=== PATIENT | male | born 1940 | race Caucasian/White ===

== ENCOUNTER 2021-11-25 05:52 | Emergency (ER) | payer MEDICARE, SELFPAY ==
[2021-11-25 06:00] VITALS: BP 130/86; PULSE 91; RESP 16; TEMP 35.7; O2SAT 97
--- NOTE | 2021-11-25 06:21 | CRLHL7_ITS ---
For Patients: As a result of the Cures Act, medical imaging exams and procedure reports are released immediately into your electronic medical record. You may view this report before your referring provider. If you have questions, please contact your health care provider. INDICATION: Dizziness. COMPARISON: Head CT scan dated 02 June 2014. TECHNIQUE: Noncontrast head CT scan. FINDINGS: Small area of encephalomalacia in the lateral aspect of the right occipital lobe is new from 2015. No other abnormal foci of altered attenuation in the brain parenchyma. No midline shift or mass effect. No hydrocephalus. No abnormal extra-axial fluid collections. No abnormalities identified in the visualized portions of the paranasal sinuses, skull, and scalp. IMPRESSION: 1. No evidence of acute intracranial abnormalities. 2. 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 Dictated by Ankush Meehan MD @ 11/25/2021 7:30:41 AM Please note that all CT scans at this facility use dose modulation, iterative reconstruction, and/or weight-based dosing when appropriate to reduce radiation dose to as low as reasonably achievable. Dictated by: Ankush Meehan MD @ 11/25/2021 07:30:55 (Electronically Signed)
--- NOTE | 2021-11-25 06:22 | ED.GENADULT ---
HPI - General Adult General Time Seen by Provider: 06:22 Date Seen: 11/25/21 Chief complaint: Dizziness/Vertigo Stated complaint: Vertigo Time Seen by Provider: 11/25/21 06:13 Source: patient Mode of arrival: ambulatory Limitations: no limitations History of Present Illness HPI narrative: 81-year-old male who comes in today with dizziness. Patient woke up mood on his left side, when he rolled over he had room spinning dizziness. This was fairly mild and only lasted a couple of seconds. He was able to get up and ambulate the bathroom, laid back down on his left side and again experienced room spinning dizziness. Laid on his right side and was fine. Patient feels mostly better now. Had similar episode to this about a year ago. No blurry or double vision, no headache, no chest pain or shortness of breath, no nausea or vomiting, no numbness tingling the arms legs, no speech difficulty, no other symptoms and symptoms are mostly resolved. Related Data Home Medications Medication Instructions Recorded Confirmed amlodipine 10 mg tablet 10 mg PO DAILY 11/25/21 11/25/21 aspirin 81 mg chewable tablet 81 mg PO DAILY 11/25/21 11/25/21 (Aspirin Childrens) atorvastatin 20 mg tablet 20 mg PO DAILY 11/25/21 11/25/21 cholecalciferol (vitamin D3) 50 2,000 unit PO DAILY 11/25/21 11/25/21 mcg (2,000 unit) capsule famotidine 20 mg tablet 20 mg PO Q12H 11/25/21 11/25/21 ferrous sulfate 325 mg (65 mg 325 mg PO DAILY 11/25/21 11/25/21 iron) tablet,delayed release gabapentin 100 mg capsule 100 mg PO Q8H 11/25/21 11/25/21 metoprolol succinate 25 mg 25 mg PO DAILY 11/25/21 11/25/21 tablet,extended release 24 hr omeprazole 20 mg capsule,delayed 20 mg PO DAILY 11/25/21 11/25/21 release tamsulosin 0.4 mg capsule 0.4 mg PO Q24H 11/25/21 11/25/21 warfarin 2 mg tablet 2 mg PO DAILY 11/25/21 11/25/21 Allergies Allergy/AdvReac Type Severity Reaction Status Date / Time codeine AdvReac Mild gi upset, Verified 11/25/21 06:09 nausea Review of Systems Status of ROS: Reports: 10 or more systems reviewed and unremarkable except as noted in History and below [facility] Medical History (Updated 11/25/21 @ 07:03 by Chet Bagley MD) Acute bacterial endocarditis Anxiety state, unspecified Bilateral hearing loss Chronic anticoagulation Depressive disorder GERD (gastroesophageal reflux disease) Hyperplastic colon polyp Hypertension 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 Kidney calculus Mitral valve disorder Plantar fasciitis Surgical History (Updated 11/25/21 @ 06:08 by Rika Hussein RN) Aortic valve replaced H/O arthroscopy of shoulder H/O hernia repair S/P ureteral stent placement Social History Smoking Status: Former smoker Do you use any of these nicotine containing products: None Second hand tobacco smoke exposure: No How often do you have a drink containing alcohol: monthly or less How many standard drinks containing alcohol do you have on a typical day: 1 or 2 How often do you have six or more drinks on one occasion: Never AUDIT-C Alcohol total score: 1 Non-prescribed substance use: denies use Exam Narrative: Exam Narrative: General: Well-developed and well-nourished, no acute distress Head: Atraumatic and normocephalic Eyes: Pupils are equal reactive, extraocular motions intact, conjunctiva clear ENT: External nose and ears are normal, posterior pharynx without erythema or exudate Neck: No midline cervical tenderness, full spontaneous range of motion the neck, trachea midline, no adenopathy Heart: Regular rate and rhythm no murmurs or thrills Lungs: Clear to auscultation bilaterally without wheezes or crackles Abdomen: Soft, nontender, nondistended with active bowel sounds Musculoskeletal: No tenderness, deformity, or edema Neurologic: Awake, alert, and oriented x3, no gross focal neurologic deficits, cranial nerves intact as tested Psych: Mood and affect are appropriate Skin: No rashes Const: Vital Signs, click to edit/add: Vital Signs - 24 hr 11/25/21 06:00 Temperature 96.3 F L Pulse Rate [Right Pulse Oximeter] 91 Respiratory Rate 16 Blood Pressure [Ri ght Upper Arm] 130/86 Pulse Oximetry 97 Oxygen Delivery Me thod Room Air Course Course Hospital Course: Patient seen examined, prior records reviewed. Patient presents with a couple episodes of room spinning dizziness this morning, only when he was lying on his left side. No other neurologic symptoms, no headache or head injury. Symptoms are almost completely resolved now. Labs and head CT are ordered, meclizine will be given. If workup is reassuring, patient can be discharged. 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 Given onset of symptoms this morning and resolution of symptoms at this time, this area of encephalomalacia is unlikely to be clinically significant to his presentation today. Patient is stable for discharge with outpatient follow-up. Vital Signs Vital signs: Initial Vital Signs Temperature 96.3 F L 11/25/21 06:00 Temperature Source Temporal Artery Scan 11/25/21 06:00 Pulse Rate 91 11/25/21 06:00 Respiratory Rate 16 11/25/21 06:00 Blood Pressure 130/86 11/25/21 06:00 Blood Pressure Mean 100 11/25/21 06:00 Blood Pressure Position Supine 11/25/21 06:00 Pulse Oximetry 97 11/25/21 06:00 Oxygen Delivery Method 11/25/21 06:00 Vital Signs Temperature 96.3 F L 11/25/21 06:00 Pulse Rate 91 11/25/21 06:00 Respiratory Rate 16 11/25/21 06:00 Blood Pressure 130/86 11/25/21 06:00 Pulse Oximetry 97 11/25/21 06:00 Oxygen Delivery Method 11/25/21 06:00 Temperature 96.3 F L 11/25/21 06:00 Pulse Rate 91 11/25/21 06:00 Respiratory Rate 16 11/25/21 06:00 Blood Pressure 130/86 11/25/21 06:00 Pulse Oximetry 97 11/25/21 06:00 Oxygen Delivery Method 11/25/21 06:00 Medical Decision Making Medical Records Medical records reviewed: Yes I reviewed the patient's medical records Lab Data Lab results reviewed: Yes I reviewed the patient's lab results Labs: Lab Results 11/25/21 Range/Units 06:25 Sodium 138 (135-149) mmol/L Potassium 4.2 (3.6-5.1) mmol/L Chloride 105 (96-114) mmol/L Carbon Dioxide 24 (20-32) mmol/L BUN 16 (7-30) mg/dL Creatinine 0.8 (0.5-1.5) mg/dL Estimated GFR 89 ml/min Glucose 113 (60-115) mg/dL Calcium 9.5 (8.4-10.6) mg/dL Imaging Data CT scan - head: Attestation: I have reviewed the pertinent imaging results. My impression: No acute ischemic changes, no hemorrhage Radiologist's impression: 1. No evidence of acute intracranial abnormalities. 2. 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 Discharge Plan Discharge Clinical Impression: Vertigo Patient Disposition: Home, Self-Care Condition: Stable Instructions: Vertigo (ED) Additional Instructions: Take meclizine as needed for dizziness Activity Level: No Restrictions Discharge Diet: Regular Prescriptions: No Action atorvastatin 20 mg tablet 20 mg PO DAILY famotidine 20 mg tablet 20 mg PO Q12H tamsulosin 0.4 mg capsule 0.4 mg PO Q24H amlodipine 10 mg tablet 10 mg PO DAILY gabapentin 100 mg capsule 100 mg PO Q8H metoprolol succinate 25 mg tablet extended release 24 hr 25 mg PO DAILY omeprazole 20 mg capsule,delayed release(DR/EC) 20 mg PO DAILY aspirin [Aspirin Childrens] 81 mg tablet,chewable 81 mg PO DAILY cholecalciferol (vitamin D3) 50 mcg (2,000 unit) capsule 2,000 unit PO DAILY ferrous sulfate 325 mg (65 mg iron) tablet,delayed release (DR/EC) 325 mg PO DAILY warfarin 2 mg tablet 2 mg PO DAILY Hold Instructions: unknown Follow Up/Referrals: QUENTIN PATEL DO [Primary Care Provider] - Stand Alone [facility]
[2021-11-25] MEDS: MECLIZINE HCL 25 MG TABLET PO (06:29)
[2021-11-25 06:55] LABS: Chloride* 105 mmol/L (96-114); Potassium* 4.2 mmol/L (3.6-5.1); Sodium* 138 mmol/L (135-149)
[2021-11-25 06:57] LABS: Creatinine* 0.8 mg/dL (0.5-1.5); Estimated Glomerular Filt Rate 89 ml/min
[2021-11-25 06:58] LABS: Blood Urea Nitrogen* 16 mg/dL (7-30); Calcium* 9.5 mg/dL (8.4-10.6); Carbon Dioxide* 24 mmol/L (20-32); Glucose* 113 mg/dL (60-115)
== END 2021-11-25 07:49 | disposition home or self-care (01) ==
PROVIDERS: Emergency Provider Family Medicine; PCP Student in an Organized Health Care Education/Training Program
DX: R42 Dizziness and giddiness (principal)
CPT/HCPCS: 36415; 70450; 80048; 99284; A9270

== ENCOUNTER 2021-11-26 13:45 | Outpatient (RCR) | payer MEDICARE, SELFPAY | END 2022-01-09 17:34 | disposition home or self-care (01) | PROVIDERS: PCP Student in an Organized Health Care Education/Training Program; Visit Provider Student in an Organized Health Care Education/Training Program | DX: M19.019 Primary osteoarthritis, unspecified shoulder (principal); Z51.89 Encounter for other specified aftercare | CPT/HCPCS: 97110; 97140 ==

== ENCOUNTER 2022-01-25 03:06 | Emergency (ER) | payer MEDICARE, SELFPAY ==
[2022-01-25 03:15] VITALS: BP 162/87; PULSE 84; RESP 18; TEMP 36.2; O2SAT 98
--- NOTE | 2022-01-25 03:16 | CRLHL7_ITS ---
For Patients: As a result of the Century Cures Act, medical imaging exams and procedure reports are released immediately into your electronic medical record. You may view this report before your referring provider. If you have questions, please contact your health care provider. INDICATION: Right-sided abdominal pain TECHNIQUE: CT abdomen and pelvis acquired with 98 cc Isovue 370 IV contrast. COMPARISON: January 20, 2021 FINDINGS: Lower chest: Coronary artery calcifications. Status post median sternotomy. Pacemaker wires partially visualized. Liver: Unremarkable. Spleen: Unremarkable. Pancreas: Unremarkable. Gallbladder and bile ducts: Unremarkable. Adrenal glands: Unremarkable. Kidneys: Multiple small nonobstructing stones in both kidneys. No perinephric fat stranding.. GI tract: Colonic diverticulosis. Appendix is not seen. Vascular structures: Atherosclerotic disease. Lymph nodes: Unremarkable. Miscellaneous: Unremarkable. No free air or significant free fluid. Pelvic Organs: 2 mm stone in the dependent portion of the urinary bladder. Multiple tiny bladder stones were previously identified. Bones: Enlarged prostate gland. IMPRESSION: Tiny bilateral nonobstructive renal stones. Urinary bladder stone. Colonic diverticulosis. Enlarged prostate gland. Coronary artery disease. Enlarged prostate gland. Please note that all CT scans at this facility use dose modulation, iterative reconstruction, and/or weight-based dosing when appropriate to reduce radiation dose to as low as reasonably achievable. Dictated by Mimi Acuña MD @ 01/25/2022 4:51:19 AM (Electronically Signed)
--- NOTE | 2022-01-25 03:17 | ED_ITS ---
HPI - Abdominal Pain General Chief Complaint: Abdominal Pain Stated Complaint: Right Side Abdominal Pain Time Seen by Provider: 01/25/22 03:14 History of Present Illness HPI narrative: Pt is an 81 year old gentleman who presents with 2 hours of mid right sided abd pain. The pain woke him up and is sharp in the anterior axillary line. No radiation. No fevers, chills, chest pain, sob or dysuria. No change in bowel or bladder. Pain is positional and worsens with movement. Pt has had similar pain in the past and was found to have kidney stones. Related Data Home Medications Medication Instructions Recorded Confirmed amlodipine 10 mg tablet 10 mg PO DAILY 11/25/21 11/25/21 aspirin 81 mg chewable tablet 81 mg PO DAILY 11/25/21 11/25/21 (Aspirin Childrens) atorvastatin 20 mg tablet 20 mg PO DAILY 11/25/21 11/25/21 cholecalciferol (vitamin D3) 50 2,000 unit PO DAILY 11/25/21 11/25/21 mcg (2,000 unit) capsule famotidine 20 mg tablet 20 mg PO Q12H 11/25/21 11/25/21 ferrous sulfate 325 mg (65 mg 325 mg PO DAILY 11/25/21 11/25/21 iron) tablet,delayed release gabapentin 100 mg capsule 100 mg PO Q8H 11/25/21 11/25/21 metoprolol succinate 25 mg 25 mg PO DAILY 11/25/21 11/25/21 tablet,extended release 24 hr omeprazole 20 mg capsule,delayed 20 mg PO DAILY 11/25/21 11/25/21 release tamsulosin 0.4 mg capsule 0.4 mg PO Q24H 11/25/21 11/25/21 warfarin 2 mg tablet 2 mg PO DAILY 11/25/21 11/25/21 Allergies Allergy/AdvReac Type Severity Reaction Status Date / Time codeine AdvReac Mild gi upset, Verified 01/25/22 04:17 nausea Review of Systems Status of ROS Reports: 10 or more systems reviewed and unremarkable except as noted in History and below 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 Kidney calculus Mitral valve disorder Plantar fasciitis Surgical History Aortic valve replaced H/O arthroscopy of shoulder H/O hernia repair S/P ureteral stent placement Social History Smoking Status: Former smoker Do you use any of these nicotine containing products: None Second hand tobacco smoke exposure: No How often do you have a drink containing alcohol: monthly or less How many standard drinks containing alcohol do you have on a typical day: 1 or 2 How often do you have six or more drinks on one occasion: Never AUDIT-C Alcohol total score: 1 Non-prescribed substance use: denies use service: No Exam Narrative: Exam Narrative: EXAM GENERAL: Patient appears comfortable and well. EYES: No scleral icterus. THYROID: no thyroid nodules or thyromegaly. LYMPH: No supraclavicular or cervical lymphadenopathy. SKIN: Visible skin seen during exam normal or with benign process only. EXT: No dependent lower extremity pedal edema. HEART: Regular rate and rhythm with no murmurs, rubs, or gallops. LUNGS: Clear to auscultation bilaterally with no crackles or wheezes. ABD: Soft, non tender, non distended. PSYCH: Good eye contact, speech is not pressured. Const: Vital Signs, click to edit/add: Vital Signs - 24 hr 01/25/22 03:15 01/25/22 04:16 Temperature 97.2 F L Pulse Rate [Left P ulse Oximeter] 84 74 Respiratory Rate 18 18 Blood Pressure [Ri ght Upper Arm] 162/87 H 148/84 H Pulse Oximetry 98 97 Oxygen Delivery Me thod Room Air Room Air Course Course Hospital Course: Pt seen and examined. CT abd and pelvis, cbc, cmp, amylase and ua ordered. Reevaluation(s) Reevaluation #1: Pt overall feeling fine. CT shows very small kidney stones which are nonobstructing. Labs reviewed and are significant for only mild low level hematuria Time: 04:59 Vital Signs Vital signs: Initial Vital Signs Temperature 97.2 F L 01/25/22 03:15 Temperature Source Temporal Artery Scan 01/25/22 03:15 Pulse Rate 84 01/25/22 03:15 Pulse Rhythm 01/25/22 03:15 Respiratory Rate 18 11/05/22 03:15 Blood Pressure 162/87 H 01/25/22 03:15 Blood Pressure Mean 112 01/25/22 03:15 Blood Pressure Position Semi-Fowlers 01/25/22 03:15 Pulse Oximetry 98 01/25/22 03:15 Oxygen Delivery Method 01/25/22 03:15 Vital Signs Temperature 97.2 F L 01/25/22 03:15 Pulse Rate 84 01/25/22 03:15 Respiratory Rate 18 01/25/22 03:15 Blood Pressure 162/87 H 01/25/22 03:15 Pulse Oximetry 98 01/25/22 03:15 Oxygen Delivery Method 01/25/22 03:15 Temperature 97.2 F L 01/25/22 03:15 Pulse Rate 74 01/25/22 04:16 Respiratory Rate 18 01/25/22 04:16 Blood Pressure 148/84 H 01/25/22 04:16 Pulse Oximetry 97 01/25/22 04:16 Oxygen Delivery Method 01/25/22 04:16 MDM - Abdominal Pain MDM Narrative Medical decision making narrative: Pt arrives with 2 hours of right sided abd pain. Work up shows only very small kidney stones bilaterally and low level hematuria. Pain is positional. Results explained to pt. Recommending Tylenol, Motrin Rest and Fluids Differential Diagnosis Differential diagnosis: Likely abdominal pain, acute appendicitis, calculus of kidney, constipation, diverticulitis, gastroenteritis, pancreatitis and small bowel obstruction Lab Data Labs: Lab Results 01/25/22 01/25/22 01/25/22 Range/Units 03:14 03:16 03:16 WBC 6.27 (4.50-11.00) K/uL RBC 5.35 (4.30-5.90) m/uL Hgb 15.5 (13.5-17.5) gm/dL Hct 46.1 (37.0-53.0) % MCV 86 (80-100) fL MCH 29 (26-34) pg MCHC 34 (32-36) gm/dL RDW Coeff of Stephen 13.4 (11.5-15.5) % Plt Count 196 (140-440) K/uL Neut % (Auto) 65.9 (42.0-72.0) % Lymph % (Auto) 23.8 (20-44) % [place] % (Auto) 9.1 (0.0-11.0) % Eos % (Auto) 0.0 (0.0-7.0) % Baso % (Auto) 0.6 (0.0-3.0) % Neut # (Auto) 4.13 (1.7-7.0) K/uL Lymph # (Auto) 1.49 (0.90-2.90) K/uL [place] # (Auto) 0.60 (0.00-0.90) K/UL Eos # (Auto) 0.00 (0.00-0.50) K/uL Baso # (Auto) 0.04 (0.00-0.30) K/uL Abs Immat Gran (auto) 0.04 (0.00-0.30) K/uL Imm/Tot Granulo (auto) 0.6 % Sodium 139 (135-149) mmol/L Potassium 4.3 (3.6-5.1) mmol/L Chloride 105 (96-114) mmol/L Carbon Dioxide 25 (20-32) mmol/L BUN 22 (7-30) mg/dL Creatinine 0.8 (0.5-1.5) mg/dL Estimated GFR 89 ml/min Glucose 104 (60-115) mg/dL Calcium 9.7 (8.4-10.6) mg/dL Total Bilirubin 0.8 (0.1-1.5) mg/dL AST 30 (12-35) U/L ALT 26 (4-50) U/L Alkaline Phosphatase 115 (40-150) U/L Total Protein 7.3 (6.0-8.3) g/dL Albumin 4.6 (3.3-5.0) g/dL Amylase 85 (18-89) U/L Urine Color Yellow (Yellow) Urine Appearance Clear (Clear) Urine pH 6.0 (5.0-8.5) Ur Specific [place] 1.010 (1.000-1.030) Urine Protein Negative (Negative) Urine Glucose (UA) Negative (Negative) Urine Ketones Negative (Negative) Urine Blood Trace-intact A (Negative) Urine Nitrite Negative (Negative) Urine Bilirubin Negative (Negative) Urine Urobilinogen 0.2 (0.2-1.0) Ur Leukocyte Esterase Negative (Negative) Urine RBC 2-5 A (0-2) Urine WBC 0-2 (0-5) Ur Squamous Epith Cells None (None-Few) Urine Bacteria None (None) Discharge Plan Discharge Clinical Impression: Abdominal pain Condition: Stable Instructions: Abdominal Pain (ED) Additional Instructions: Tylenol Motrin Rest Fluids Follow up as needed Activity Level: Activity as Tolerated Discharge Diet: Regular Prescriptions: No Action atorvastatin 20 mg tablet 20 mg PO DAILY famotidine 20 mg tablet 20 mg PO Q12H tamsulosin 0.4 mg capsule 0.4 mg PO Q24H amlodipine 10 mg tablet 10 mg PO DAILY gabapentin 100 mg capsule 100 mg PO Q8H metoprolol succinate 25 mg tablet extended release 24 hr 25 mg PO DAILY omeprazole 20 mg capsule,delayed release(DR/EC) 20 mg PO DAILY aspirin [Aspirin Childrens] 81 mg tablet,chewable 81 mg PO DAILY cholecalciferol (vitamin D3) 50 mcg (2,000 unit) capsule 2,000 unit PO DAILY ferrous sulfate 325 mg (65 mg iron) tablet,delayed release (DR/EC) 325 mg PO DAILY warfarin 2 mg tablet 2 mg PO DAILY Hold Instructions: unknown Follow Up/Referrals: QUENTIN PAETL DO [Primary Care Provider] - Stand Alone Forms: [facility] Info Instructions
[2022-01-25 03:21] LABS: Appearance Urine Clear (Clear); Bilirubin Urine Negative (Negative); Blood Urine Trace-intact (Negative); Color Urine Yellow (Yellow); Glucose Urine Negative (Negative); Ketones Urine Negative (Negative); Leukocyte Esterase Urine Negative (Negative); Nitrite Urine Negative (Negative); Protein Urine Negative (Negative); Urobilinogen Urine 0.2 (0.2-1.0)
[2022-01-25 03:27] LABS: WBC Urine 0-2 (0-5)
[2022-01-25 03:32] LABS: Basophils Absolute Auto 0.04 K/uL (0.00-0.30); Basophils Percent Auto 0.6 % (0.0-3.0); Hematocrit 46.1 % (37.0-53.0); Hemoglobin* 15.5 gm/dL (13.5-17.5); Immature Granulocytes Abs Auto 0.04 K/uL (0.00-0.30); Immature Granulocytes Pct Auto 0.6 %; Lymphocytes Absolute Auto 1.49 K/uL (0.90-2.90); Lymphocytes Percent Auto 23.8 % (20-44); Mean Corpuscular HGB Conc 34 gm/dL (32-36); Mean Corpuscular Hemoglobin 29 pg (26-34); Mean Corpuscular Volume 86 fL (80-100); Monocytes Percent Auto 9.1 % (0.0-11.0); Neutrophils Absolute Auto 4.13 K/uL (1.7-7.0); Neutrophils Percent Auto 65.9 % (42.0-72.0); Platelet Count* 196 K/uL (140-440); RDW Coefficient of Variation % 13.4 % (11.5-15.5); Red Blood Count 5.35 m/uL (4.30-5.90); Slide Review Reflex No; White Blood Count* 6.27 K/uL (4.50-11.00)
--- OUTSIDE RECORDS SUMMARY | 2022-01-25 03:34 | XMS_ITS | Clinical Summary ---
:1940 Author Organization [facility] [place] [address] Care Team Providers Name Role Phone Kelly Villegas Unavailable [phone] Courtney Munoz DO Primary Care Provider Leila Carreon PharmD Unavailable Allergies Active Allergy Reactions Severity Noted Date Comments Codeine GI Upset, Nausea Only Low 05/27/2006 Medications Medication Sig Dispensed Refills Start Date End Date Status melatonin 3 mg tablet Take 3 mg by 0 07/15/2013 Active mouth at bedtime if needed. doxylamine (UNISOM) Take 1 tablet by 0 12/30/2017 Active 25 mg tablet mouth at bedtime if needed for Sleep. ferrous sulfate 325 Take 1 Tablet 90 Tablet 3 05/03/2021 Active mg delayed release (325 mg) by tabletIndications: mouth once daily Microcytic anemia with a meal. multivitamin (MVI) Take 1 Tablet by 0 Active tablet mouth once daily. acetaminophen [The details of 0 06/27/2021 Active (TYLENOL EXTRA the medication STRGTH) 500 mg are not tabletIndications: available S/P MVR (mitral valve because there replacement) are pending changes by a home health clinician.] metoprolol succinate Take 1 Tablet 90 Tablet 3 07/22/2021 Active (TOPROL XL) 25 mg (25 mg) by mouth Sustained-Release once daily. tabletIndications: S/P MVR (mitral valve replacement), Cardiomyopathy, unspecified type (HC) sennosides (SENNA) Take 1 Tablet 180 Tablet 3 09/09/2021 Active 8.6 mg (8.6 mg) by tabletIndications: mouth in the Constipation, acute morning and 1 Tablet (8.6 mg) in the evening. aspirin chewable 81 Chew 1 Tablet 180 Tablet 2 09/12/2021 Active mg chewable (81 mg) by mouth tabletIndications: once daily with Subacute bacterial a meal. endocarditis diphenhydrAMINE-zinc Apply topically 28 g 0 09/26/2021 Active acetate, 1%-0.1%, to affected (Benadryl Itch area(s) 3 times Stopping) daily if needed creamIndications: for Itching. Dermatitis cholecalciferol TAKE 1 CAPSULE 90 Capsule 3 11/19/2021 Active (VITAMIN D3) 2,000 BY MOUTH DAILY. unit capsuleIndications: Vitamin D deficiency gabapentin TAKE 1 CAPSULE 270 Capsule 1 11/19/2021 A ctive (NEURONTIN) 100 mg BY MOUTH 3 TIMES capsuleIndications: A DAY. Radiculopathy of cervical spine, Radicular low back pain atorvastatin TAKE ONE TABLET 90 Tablet 0 11/28/2021 Active (LIPITOR) 20 mg BY MOUTH ONCE tabletIndications: DAILY Disorder of lipoid metabolism tamsulosin (FLOMAX) TAKE ONE CAPSULE 90 Capsule 2 11/28/2021 Active 0.4 mg BY MOUTH EVERY capsuleIndications: EVENING BPH with urinary obstruction polyethylene glycoL Mix 1 scoop (17 507 g 0 12/02/2021 Active (MIRALAX) 17 g) in liquid gram/dose then take by powderIndications: mouth once daily Constipation, acute if needed for Constipation. indomethacin Take 1 Capsule 90 Capsule 0 12/02/2021 (INDOCIN) 25 mg (25 mg) by mouth 2 capsuleIndications: three times Acute gout involving daily with toe of right foot, meals. 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 Mar 2021: Right TF L2-3 Epidural steroid injection at [facility]. Gastroesophageal reflux disease 04/20/2019 Bilateral kidney stones 05/05/2016 HTN (hypertension) 12/12/2015 Chronic left hip pain 04/06/2015 Hyperlipidemia 12/28/2012 Radiculopathy of cervical spine 06/28/2010 Bilateral sensorineural hearing loss 05/24/2010 Overview: identified in 2006 Formatting of this note might be differe nt from the original. Formatting of this note might be differe nt from the original. identified in 2006 Acute pain of left shoulder 05/14/2009 Overview: Pain worsened September 2014, February 2015 M RI showing RC tear, Biceps longitudinal tear and displacement. Referral to Orthopedics. Last Assessment & Plan: Formatting of this note might be differe nt from the original. At this time will order an x-ray of the left shoulder to assess further. In today's visit I gave patient a left shoulder sling to use. Patient reports he will be traveling back to [place] tomorrow and advised him he needs to follow-up with PCP or orthopedics in [place] for further evaluation. Patient understands agrees with plan. Patient was given guidance on when to seek care. Blood pressure was mildly elevated in the office today. Adv ised patient to follow-up with PCP in [place] for further work-up. Plantar fasciitis 11/28/2008 Hypertrophy of prostate without urinary obstruction an d other lower 11/28/2008 urinary tract symptoms (LUTS) Hyperplastic colon polyp 07/06/2008 Overview: Colonoscopy 06/2008 hyperplastic polyp re peat in 10 years Colonoscopy 05/2017 small ileal ulcer fro m asprin, no follow up needed Mitral valve disease 06/02/2008 Overview: Mild mitral regurgitation Formatting of this note might be differe nt from the original. Formatting of this note might be differe nt from the original. Mild mitral regurgitation Resolved Problems Problem Noted Date Resolved Date Anticoagulation monitoring, INR range 2-3 06/28/2021 11/08/2021 Labile hypertension 06/06/2014 12/12/2015 High blood pressure 11/28/2008 12/28/2012 Unspecified disorder of lipoid metabolism 05/27/2006 12/28/2012 Encounters Date Type Specialty Care Team Description 12/03/2021 Telephone Courtney Munoz DO Pharmacist Medication Management 12/02/2021 Office Visit Courtney Munoz DO Medication Management 12/02/2021 Travel 11/26/2021 Refill Courtney Munoz DO Refill Requ est (Atorvastatin, Tamsulosin) 11/25/2021 Orders Only Scanner <No scans attac hed> 11/25/2021 Travel 11/25/2021 Nurse Triage Courtney Munoz DO Dizziness 11/16/2021 Refill Courtney Munoz DO Refill Requ est (Cholecalcifero l, Gabapentin) 11/15/2021 Hospital Encounter 11/15/2021 Travel 11/13/2021 Hospital Encounter S/P MVR ( mitral valve replacement); S/P AVR 11/13/2021 Travel 11/11/2021 Hospital Encounter 11/11/2021 Travel 11/08/2021 Telephone Courtney Munoz DO Medication Management 11/07/2021 Office Visit Courtney Munoz DO Follow Up ( 3 month open heart); Medicat ion List Update (Not jaspreet ing sennosides or t amsulosin) 11/07/2021 Refill Courtney Munoz DO Refill Requ est (Warfarin) 11/06/2021 Hospital Encounter 11/06/2021 Travel 11/04/2021 Hospital Encounter S/P MVR ( mitral valve replacement); S/P AVR 11/04/2021 Travel 11/01/2021 Hospital Encounter 11/01/2021 Travel 10/30/2021 Hospital Encounter 10/30/2021 Travel 10/28/2021 Hospital Encounter Courtney Munoz DO S/P M VR (mitral valve replacement); S/P AVR 10/28/2021 Travel 10/25/2021 Hospital Encounter Courtney Munoz DO S/P M VR (mitral valve replacement); S/P AVR 10/25/2021 Travel from Last 3 Months Immunizations Name Administration Dates Next Due COVID-19 vaccine (Moderna 06/20/2020, 05/23/2020 100mcg/0.5mL) PF, MDV COVID-19 vaccine (Moderna Booster 07/04/2021 50mcg/0.25mL) PF, MDV Influenza A (H1N1), Inactivated 04/03/2009 Influenza Virus, Unspecified 12/30/2018 Influenza, High-dose Inactivated 12/12/2015, 12/26/2014, Influenza, High-dose Quadrivalent 12/29/2019 Inactivated Influenza, IIV3 (Age >=3 years) 12/28/2012, 12/09/2011, 11/22, 12/18/2009, 01/06/2008, 01/20/2007, 01/07/2006, 02/18/2005 Influenza, Inactivated AIIV4 (Age 65+ 12/02/2021, 11/23/2020 Years) Preserv Free Influenza, Inactivated IIV3 (Age 65+ 12/01/2017, 01/08/2017 Years) Preserv Free Pneumococcal Poly,23-Valent 04/23/2010 (Pneumovax) Pneumococcal conj 13-Valent (Prevnar 04/15/2016 13) Td (Age >=7 Years) 12/03/1999 Td, Preservative Free (age >= 7 04/23/2010 Years) Tdap 11/20/2021 Zoster (Shingrix-RZV, recombinant) 08/27/2018, 05/05/2018 Family History Medical History Relation Name Comments Diabetes type I Brother Cancer-breast Mother Diabetes type I Sister Relation Name Status Comments Brother (Age 70) Father (Age 89) old age Mother (Age 74) breast cancer Sister (Age 56) heart failure Social History Tobacco Use Types Packs/Day Years Used Date Former Smoker Pipe 2 5 11/23/1965 - 0 03/23/1970 Smokeless Tobacco: Never Used Tobacco Cessation: Counseling Given: Yes Alcohol Use Standard Drinks/Week Comments Yes 0 (1 standard drink = 0.6 oz pure alcoho l) wine or beer occasionally Alcohol Habits Answer Date Recorded How often do you have a drink containing Monthly or less 08/18/2019 alcohol? How many drinks containing alcohol do you 1 or 2 04/13/2019 have on a typical day when you are drinking? How often do you have six or more drinks on Never 04/13/2019 one occasion? Comment: wine or beer occasionally 09/12/2016 Sex Assigned at Date Recorded Not on file Obstetrics History Last Filed Vital Signs Vital Sign Reading Time Taken Comments Blood Pressure 116/75 12/02/2021 10:58 AM CDT Pulse 78 12/02/2021 10:58 AM CDT Temperature 36.9 ??C (98.4 ??F) 12/02/2021 10:58 AM CDT Respiratory Rate 16 09/07/2021 9:05 AM CDT Oxygen Saturation 97% 12/02/2021 10:58 AM CDT Inhaled Oxygen Concentration - - Weight 90.4 kg (199 lb 6.4 oz) 12/02/2021 10:58 AM CDT w/ shoes Height 180 cm (5' 10.87) 09/26/2021 11:18 AM CDT Body Mass Index 27.91 09/26/2021 11:18 AM CDT Plan of Treatment Upcoming Encounters Date Type Specialty Care Team Description 01/28/2022 Office Visit Courtney Munoz DO [address] [place], [place] [address] (Wo rk) 02/20/2022 Procedure Only Niles Lopez L [facility] [address] [place], [place] [address] (Wo rk) 05/23/2022 Cardiac Device Check Health Maintenance Due Date Last Done Comments Medicare Wellness for age 65+ 07/09/2022 07/09/2021, 2020, 05/03/2018, Additional history exists Depression screening for age 12+ 08/12/2022 08/12/2021, , 08/08/2021, Additional history exists BMI (ht and wt on same day) for 09/26/2022 09/26/2021, 08/22, age 18+ 08/22/2021, Additional history exists Tetanus booster 11/21/2031 11/20/2021, 04/23/2010, 04/23/2010, Additional history exists Pneumococcal series for age 65+ Completed 04/15/2016, 03/2010 Zoster (shingles) series for age Completed 08/27/2018, 50+ Tdap Completed 11/20/2021 COVID-19 vaccine series Completed 11/27/2021, 07/04/2021, 01/15/2021, Additional history exists Influenza for age 65+ Completed 12/02/2021, 11/23/2020, 12/29/2019, Additional history exists Medical Devices Implanted Type Area Felt Machine Mechanic Device Shelf Model / Identifier Expiration Serial / Date Lot Valve Aortic 25mm Inspirus Resilia Tissue - [id number] Cv Implants N/A: Dixon 01/30/2025 [id number] / Implanted: Qty: 1 on 06/19/2021 by Tito Lanier MD at [facility] Mitral Lifesciences [id number] / Valve Justin Stent Uret [id number] Contour - [id number] Ureter BSC Urolo gy 12/18/2018 180- 223# / Implanted: Qty: 1 on 05/23/2016 by Liang Coates MD at [facility] / [id number] Procedures Procedure Name Priority Date/Time Associated Comments Diagnosis SCAN-CT INTERPRETATION 11/25/2021 12:00 AM CDT SCAN-CARDIAC 11/15/2021 12:00 Results for this REHABILITATION AM CDT procedure are in the results section. SCAN-CARDIAC 11/13/2021 12:00 Results for this REHABILITATION AM CDT procedure are in the results section. SCAN-CARDIAC 11/11/2021 12:00 Results for this REHABILITATION AM CDT procedure are in the results section. SCAN-CARDIAC 11/06/2021 12:00 Results for this REHABILITATION AM CDT procedure are in the results section. SCAN-CARDIAC 11/04/2021 12:00 Results for this REHABILITATION AM CDT procedure are in the results section. SCAN-CARDIAC 11/01/2021 12:00 Results for this REHABILITATION AM CDT procedure are in the results section. SCAN-CARDIAC 10/30/2021 12:00 Results for this REHABILITATION AM CDT procedure are in the results section. SCAN-CARDIAC 10/28/2021 12:00 Results for this REHABILITATION AM CDT procedure are in the results section. SCAN-CARDIAC 10/25/2021 12:00 Results for this REHABILITATION AM CDT procedure are in the results section. from Last 3 Months Results SCAN-CT INTERPRETATION (11/25/2021 12:00 AM CDT) Narrative This result has an attachment that is no t available. Scanner OTHER SCAN-CARDIAC REHABILITATION (11/15/2021 12:00 AM CDT)Only the most recent of9 resultswithin the time period is included. Narrative 11/15/2021 12:00 AM CDT This result has an attachment that is no t available. Ordered by an unspecified provider. Other Clinical Staff OTHER from Last 3 Months Insurance Payer Benefit Plan / Subscriber ID Effective Dates Phone Addre ss Type Group ARE PPS HC UCARE MEDICARE [id number] 2019-Present [address] [place] [address] [facility] MR UCARE MEDICARE [id number] 2019-Present [address] [place] [address] Advance Directives Documents on File Type Date Recorded Patient Clinical Research Administrator Explanati on Healthcare Directive 10/01/2018 1:39 PM 9 Latest Code Status on File Code Status Date Activated Date Inactivated Comments Full Code 06/19/2021 8:13 PM 06/27/2021 6:51 PM Pt had AVR/MV R on 06/19/2021, for which previous DNR was rescinded. Pt should be considered fu ll code early post-cardiac [place] [facility] while in the ICU. Code Status Discussion: Other DNR 06/13/2021 3:33 PM 06/19/2021 8:13 PM Code Status Discussion: Reviewed Preferences Full Code 05/07/2021 7:49 PM 05/13/2021 5:31 PM Code Status Discussion: Other Full Code 07/18/2016 9:44 AM 07/18/2016 4:24 PM Full Code 05/23/2016 11:30 AM 05/23/2016 10:53 PM Care Teams Insurance Verifier Relationship Specialty Start Date End Date Courtney Munoz DO PCP - General Family Practice 10/09/20 [address] [place] [address] Kelly Villegas, Audiology 11/11/11 AuD Leila Carreon, PharmD Pharmacist Medication Pharmacology 09/19/21 09/19/22 Management
[2022-01-25 03:41] LABS: Albumin* 4.6 g/dL (3.3-5.0); Chloride* 105 mmol/L (96-114)
[2022-01-25 03:42] LABS: Potassium* 4.3 mmol/L (3.6-5.1); Sodium* 139 mmol/L (135-149)
[2022-01-25 03:44] LABS: Amylase* 85 U/L (18-89); Carbon Dioxide* 25 mmol/L (20-32); Creatinine* 0.8 mg/dL (0.5-1.5); Estimated Glomerular Filt Rate 89 ml/min
[2022-01-25 03:45] LABS: Alanine Aminotransferase* 26 U/L (4-50); Alkaline Phosphatase* 115 U/L (40-150); Aspartate Amino Transferase* 30 U/L (12-35); Bilirubin Total* 0.8 mg/dL (0.1-1.5); Blood Urea Nitrogen* 22 mg/dL (7-30); Calcium* 9.7 mg/dL (8.4-10.6); Glucose* 104 mg/dL (60-115); Total Protein* 7.3 g/dL (6.0-8.3)
[2022-01-25 04:16] VITALS: BP 148/84; PULSE 74; RESP 18; O2SAT 97
== END 2022-01-25 05:18 | disposition home or self-care (01) ==
PROVIDERS: Emergency Provider Internal Medicine; PCP Student in an Organized Health Care Education/Training Program
DX: R10.9 Unspecified abdominal pain (principal)
CPT/HCPCS: 36415; 74177; 80053; 81001; 82150; 85025; 99283; 99284; Q9967

== ENCOUNTER 2022-02-26 09:58 | Day surgery (SDC) | payer MEDICARE, SELFPAY ==
[2022-02-26] MEDS: TETRACAINE 0.5% OPHTH 1 DROP EYE-RIGHT ×2 (10:27→10:38)
--- NOTE | 2022-02-26 10:28 | SUR.PREOP ---
Home COVID test negative-verified by bond underwriter.
[2022-02-26] MEDS: KETOROLAC OPHTH 0.5% 1 DROP EYE-RIGHT ×3 (10:37→10:51)
[2022-02-26 10:38] VITALS: BMI 29.2
[2022-02-26 10:42] VITALS: BP 153/87; PULSE 76; RESP 16; TEMP 36.2; O2SAT 94
[2022-02-26] MEDS: TETRACAINE 0.5% OPHTH 2 DROP EYE-RIGHT (10:43)
[2022-02-26] MEDS: BALANCED SALT IRRIG SOLN 15 ML EYE-RIGHT (10:43)
[2022-02-26] MEDS: SODIUM CHLORIDE 0.9 % (FLUSH) 10 ML SYRINGE IVF (10:50)
[2022-02-26 11:45] VITALS: BP 132/81; PULSE 71; RESP 16; TEMP 36.3; O2SAT 92
--- NOTE | 2022-02-26 11:50 | W.ANESCHARGE ---
Anesthesia Charges Start Date/Time Anesthesia Start Date: 02/26/22 Anesthesia Start Time: 11:16 Stop Date/Time Anesthesia Stop Date: 02/26/22 Anesthesia Stop Time: 11:50 Summary Emergency: No Extremes of Age: Over 70-CPT 25585
--- NOTE | 2022-02-26 12:06 | W.ANESCHARGE ---
Anesthesia Charges Start Date/Time Anesthesia Start Date: 02/26/22 Anesthesia Start Time: 11:16 Stop Date/Time Anesthesia Stop Date: 02/26/22 Anesthesia Stop Time: 11:50 Summary Emergency: No Extremes of Age: Over 70-CPT 29487
--- NOTE | 2022-02-26 15:25 | W.PM.OPTPROC ---
Procedure Note Date of procedure: 02/26/22 Will [facility] bill your pro fee for this procedure?: Yes Procedure Description: SURGEON: Betty Bray MD PREOPERATIVE DIAGNOSIS: Nuclear sclerotic cataract, right eye. POSTOPERATIVE DIAGNOSIS: Nuclear sclerotic cataract, right eye. NAME OF OPERATION: Phacoemulsification of cataract with posterior chamber intraocular lens implantation in the right eye. ANESTHESIA: Topical. ESTIMATED BLOOD LOSS: Less than 2 cc. COMPLICATIONS: None. PATHOLOGY SPECIMEN: None. INDICATIONS: See consult note for details. The risks, benefits and alternatives of the procedure were explained to the patient, who elected to proceed and signed informed consent to do so. PROCEDURE: The patient was brought to the pre-holding area where the right eye was identified as the operative eye. I placed my initials above this eye. The patient received eye drops consisting of 0.5% tetracaine, 1% tropicamide, 10% phenylephrine, and 0.5% ketorolac. The patient was then brought to the operating room where the right eye was again identified as the operative eye. The eye was prepped with Betadine and draped in the usual sterile ophthalmic fashion. A #15 super-sharp blade was used to create a paracentesis site. 1% non-preserved intracameral lidocaine was injected into the anterior chamber. Endocoat was injected into the anterior chamber. A 2.4 mm keratome was used to create a three-plane self-sealing incision 1 mm anterior to the temporal limbus. A cystotome was used to create an anterior capsular leaflet. The Utrata forceps were used to extend this to form a continuous curvilinear capsulorrhexis. Hydrodissection was performed. The cataract was removed with phacoemulsification using the [id number] technique. The irrigation and aspiration tip was used to remove the remaining cortex. Healon was injected into the capsular bag. An JANA [id number] intraocular lens of 13.0 diopters was injected into the capsular bag. The irrigation and aspiration tip was used to remove the remaining viscoelastic. Balanced salt solution on a cannula was used to hydrate the wound, and the wound was found to be watertight. The pupil was noted to be round. DISPOSITION: The patient was taken to the recovery room and discharged to home in stable condition. The patient was instructed to call me or go to the emergency department with any sudden change, including dramatic loss of vision, severe pain in the eye or eyebrow region, nausea, or vomiting. The patient will follow up in the clinic tomorrow morning. Surgeon: Betty Bray MD
== END 2022-02-26 12:17 | disposition home or self-care (01) ==
LOC: OR 09:59
PROVIDERS: PCP Student in an Organized Health Care Education/Training Program; Visit Provider Ophthalmology
PROC: (CPT 66984; principal; 2022-02-26 10:15)
DX: H25.11 Age-related nuclear cataract, right eye (principal)
CPT/HCPCS: 66984; 00142; 99100; A9270; J2250; J3010; V2632

== ENCOUNTER 2022-03-12 09:33 | Day surgery (SDC) | payer MEDICARE, SELFPAY ==
[2022-03-12] MEDS: KETOROLAC OPHTH 0.5% 1 DROP EYE-LEFT ×3 (10:00→10:10)
[2022-03-12] MEDS: SODIUM CHLORIDE 0.9 % (FLUSH) 10 ML SYRINGE IVF (10:00)
[2022-03-12] MEDS: TETRACAINE 0.5% OPHTH 1 DROP EYE-LEFT ×2 (10:00→10:05)
[2022-03-12 10:09] VITALS: BMI 29.2
[2022-03-12 10:13] VITALS: BP 145/82; PULSE 74; RESP 16; TEMP 36.1; O2SAT 97
[2022-03-12] MEDS: TETRACAINE 0.5% OPHTH 2 DROP EYE-LEFT (10:55)
[2022-03-12] MEDS: BALANCED SALT IRRIG SOLN 15 ML EYE-LEFT (11:00)
--- NOTE | 2022-03-12 11:28 | W.ANESCHARGE ---
Anesthesia Charges Start Date/Time Anesthesia Start Date: 03/12/22 Anesthesia Start Time: 10:52 Stop Date/Time Anesthesia Stop Date: 03/12/22 Anesthesia Stop Time: 11:28 Summary Emergency: No Extremes of Age: Over 70-CPT 39921
[2022-03-12 11:36] VITALS: BP 125/69; PULSE 64; RESP 16; TEMP 36.5; O2SAT 96
--- NOTE | 2022-03-12 11:45 | W.ANESCHARGE ---
Anesthesia Charges Start Date/Time Anesthesia Start Date: 03/12/22 Anesthesia Start Time: 10:52 Stop Date/Time Anesthesia Stop Date: 03/12/22 Anesthesia Stop Time: 11:28 Summary Emergency: No Extremes of Age: Over 70-CPT 34153
--- NOTE | 2022-03-12 12:02 | P.OPTPRC_ITS ---
Procedure Note Date of procedure: 03/12/22 Will [facility] bill your pro fee for this procedure?: Yes Procedure Description: SURGEON: Betty Bray MD PREOPERATIVE DIAGNOSIS: Nuclear sclerotic cataract, left eye. POSTOPERATIVE DIAGNOSIS: Nuclear sclerotic cataract, left eye. NAME OF OPERATION: Phacoemulsification of cataract with posterior chamber intraocular lens implantation in the left eye. ANESTHESIA: Topical. ESTIMATED BLOOD LOSS: Less than 2 cc. COMPLICATIONS: None. PATHOLOGY SPECIMEN: None. INDICATIONS: See consult note for details. The risks, benefits and alternatives of the procedure were explained to the patient, who elected to proceed and sign ed informed consent to do so. PROCEDURE: The patient was brought to the pre-holding area where the left eye was identified as the operative eye. I placed my initials above this eye. The patient received eye drops consisting of 0.5% tetracaine, 1% tropicamide, 10% phenylephrine, and 0.5% ketorolac. The patient was then brought to the operating room where the left eye was again identified as the operative eye. The eye was prepped with Betadine and draped in the usual sterile ophthalmic fashion. A #15 super-sharp blade was used to create a paracentesis site. 1% non-preserved intracameral lidocaine was injected into the anterior chamber. Endocoat was injected into the anterior chamber. A 2.4 mm keratome was used to create a three-plane self-sealing incision 1 mm anterior to the temporal limbus. A cystotome was used to create an anterior capsular leaflet. The Utrata forceps were used to extend this to form a continuous curvilinear capsulorrhexis. Hydrodissection was performed. The cataract was removed with phacoemulsification using the [id number] technique. The irrigation and aspiration tip was used to remove the remaining cortex. Healon was injected into the capsular bag. An JANA [id number] intraocular lens of 13.0 diopters was injected into the capsular bag. The irrigation and aspiration tip was used to remove the remaining viscoelastic. Balanced salt solution on a cannula was used to hydrate the wound, and the wound was found to be watertight. The pupil was noted to be round. DISPOSITION: The patient was taken to the recovery room and discharged to home in stable condition. The patient was instructed to call me or go to the emergency department with any sudden change, including dramatic loss of vision, severe pain in the eye or eyebrow region, nausea, or vomiting. The patient will follow up in the clinic tomorrow morning. Surgeon: Betty Bray MD
== END 2022-03-12 11:52 | disposition home or self-care (01) ==
PROVIDERS: PCP Student in an Organized Health Care Education/Training Program; Visit Provider Ophthalmology
PROC: (CPT 66984; principal; 2022-03-12 09:45)
DX: H25.12 Age-related nuclear cataract, left eye (principal)
CPT/HCPCS: 66984; 00142; 99100; A9270; J2250; J3010; V2632

== ENCOUNTER 2022-06-05 13:45 | Outpatient (RCR) | payer MEDICARE, SELFPAY | END 2022-06-13 10:55 | disposition home or self-care (01) | PROVIDERS: PCP Student in an Organized Health Care Education/Training Program; Visit Provider Student in an Organized Health Care Education/Training Program | DX: M25.552 Pain in left hip (principal); G89.29 Other chronic pain; M25.512 Pain in left shoulder; Z51.89 Encounter for other specified aftercare | CPT/HCPCS: 97110; 97140; 97161 ==

== ENCOUNTER 2023-11-09 03:11 | Emergency (ER) | payer MEDICARE, SELFPAY ==
[2023-11-09 03:15] VITALS: BP 166/83; PULSE 78; RESP 16; TEMP 36.8; O2SAT 96; BMI 27.9
--- NOTE | 2023-11-09 04:00 | ED.GENADULT ---
HPI - General Adult General Chief complaint: Extremity Pain/Injury, Upper Stated complaint: pain in right arm/hand Time Seen by Provider: 11/09/23 03:24 Source: patient Mode of arrival: ambulatory Limitations: no limitations History of Present Illness HPI narrative: 83-year-old male presents the emergency department in the wee hours for evaluation of hand pain for the past hour. No trauma or injury. Admits that he does get pretty frequent pain in his 2nd and 3rd knuckles, especially with prolonged holding of books. He has osteoarthritis of multiple sites on his body. He tried taking couple Tylenol and states that it is somewhat improving his pain but not sufficiently. He noticed a little bit of swelling focally over those 2 joints which is new for him this morning. He was occasionally getting a little bit of radiation of the pain up his forearm but that has since relieved with the Tylenol. No stroke-like symptoms, no focal neurological deficits, no movement deficits. No redness, warmth or signs of infection. No skin injury. No difficulty moving wrist, elbow or shoulder. No neck pain. No history of DVT or PE. Did not try any other interventions to help with his symptoms. Past medical history is notable for pacemaker placement, hyperlipidemia, chronic osteoarthritis of the back for which he takes gabapentin and also BPH. His medication list is reviewed, he reports this is accurate. Allergy to codeine which sounds more like an intolerance. ROS is notable for no other generalized, neurological, skin or musculoskeletal changes besides what is described above. Related Data Home Medications ?Medication ?Instructions ?Recorded ?Confirmed aspirin 81 mg chewable tablet 81 mg PO DAILY 11/25/21 10/14/23 (Aspirin Childrens) atorvastatin 20 mg tablet 20 mg PO DAILY 11/25/21 10/14/23 cholecalciferol (vitamin D3) 50 2,000 unit PO DAILY 11/25/21 10/14/23 mcg (2,000 unit) capsule ferrous sulfate 325 mg (65 mg 325 mg PO DAILY 11/25/21 10/14/23 iron) tablet,delayed release gabapentin 100 mg capsule 100 mg PO Q8H 11/25/21 10/14/23 metoprolol succinate 25 mg 25 mg PO DAILY 11/25/21 10/14/23 tablet,extended release 24 hr tamsulosin 0.4 mg capsule 0.4 mg PO Q24H 11/25/21 10/14/23 doxylamine succinate 25 mg tablet 25 mg PO QHS PRN 02/25/22 10/14/23 (Unisom (doxylamine)) melatonin 3 mg capsule 3 mg PO HS PRN 02/25/22 10/14/23 multivitamin 1 tab PO DAILY 02/25/22 10/14/23 sennosides 8.6 mg capsule (senna) 8.6 mg PO BID 02/25/22 10/14/23 Previous Rx's ?Medication ?Instructions ?Recorded triamcinolone acetonide 0.1 % 1 applic topical BID PRN 10/14/23 topical ointment dermatitis #30 grams celecoxib 200 mg capsule (Celebrex) 200 mg PO DAILY PRN pain #14 caps 11/09/23 Allergies Allergy/AdvReac Type Severity Reaction Status Date / Time codeine AdvReac Mild gi upset, Verified 10/14/23 08:48 nausea PFSH PFS Medical History Cardiomyopathy ?I42.9 - Cardiomyopathy, unspecified (ICD-10) Radiculopathy of cervical spine ?M54.12 - Radiculopathy, cervical region (ICD-10) Plantar fasciitis ?M72.2 - Plantar fascial fibromatosis (ICD-10) Hypertension ?I10 - Essential (primary) hypertension (ICD-10) Kidney calculus ?N20.0 - Calculus of kidney (ICD-10) GERD (gastroesophageal reflux disease) ?K21.9 - Gastro-esophageal reflux disease without esophagitis (ICD-10) Chronic anticoagulation ?Z79.01 - care home (current) use of anticoagulants (ICD-10) Mitral valve disorder ?I05.9 - Rheumatic mitral valve disease, unspecified (ICD-10) 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 - Other specified bacterial diseases (ICD-10) Hyperplastic colon polyp ?K63.5 - Polyp of colon (ICD-10) Depressive disorder ?F32.A - Depression, unspecified (ICD-10) Bilateral hearing loss ?H91.93 - Unspecified hearing loss, bilateral (ICD-10) Anxiety state, unspecified ?F41.1 - Generalized anxiety disorder (ICD-10) Acute bacterial endocarditis ?I33.0 - Acute and subacute infective endocarditis (ICD-10) Surgical History Hx of colonoscopy ?Z98.890 - Other specified postprocedural states (ICD-10) Aortic valve replaced ?Z95.2 - Presence of prosthetic heart valve (ICD-10) S/P ureteral stent placement ?Z96.0 - Presence of urogenital implants (ICD-10) H/O arthroscopy of shoulder ?Z98.890 - Other specified postprocedural states (ICD-10) H/O hernia repair ?Z98.890 - Other specified postprocedural states (ICD-10) ?Z87.19 - Personal history of other diseases of the digestive system (ICD-10) Social History Smoking Status: Former smoker Do you use any of these nicotine containing products: None Second hand tobacco smoke exposure: No How often do you have a drink containing alcohol: 2-3 times a week Alcohol type: wine How many standard drinks containing alcohol do you have on a typical day: 1 or 2 How often do you have six or more drinks on one occasion: Never AUDIT-C Alcohol total score: 3 Non-prescribed substance use: denies use Caffeine: No service: No Exam Const: Vital Signs, click to edit/add: Vital Signs - 24 hr 11/09/23 03:15 Temperature 98.3 F Pulse Rate [Left P ulse Oximeter] 78 Respiratory Rate 16 Blood Pressure [Ri ght Upper Arm] 166/83 H Pulse Oximetry 96 Oxygen Delivery Me thod Room Air Documenting provider has reviewed patient's vital signs: yes Common normals: no apparent distress and alert General appearance: comfortable HENMT: Common normals: normocephalic Head and scalp: normocephalic Mouth: oral and palatal mucosa normal Eye: General eye: normal appearance of both eyes Neck & C-Spine: Other: Osteoarthritis related stiffness and decreased range of motion in all directions but no point tenderness. No reproduction of radiculopathy symptoms on exam. Resp: Common normals: normal respiratory effort Effort & inspection: able to speak in complete sentences Cardio: Other: Regular radial pulses bilaterally. Normal rate and rhythm. Extremity: Other: Wrists and all joints of the hand appear symmetric. He has normal range of motion of all fingers including thumb. No weakness. There is enlargement of the 2nd and 3rd as well as the 1st metacarpophalangeal joints consistent with osteoarthritis. No redness or warmth over these. There is mild swelling just proximal to the 2nd and 3rd MCP joints but no hematoma, foreign body, warmth or palpable abnormality. This the small focal area smaller than a quarter. It is not really encompassing the superficial veins and it does not track up the arm. Palpation of the more proximal veins does not worsen symptoms. Normal range of motion of the wrists elbows bilaterally and the right shoulder with no reproduction or worsening of symptoms. Neuro: Sensorium/orientation: alert Speech: speech normal Motor exam: strength 5/5 throughout and no movement abnormalities noted Psych: Attitude: calm Mood and affect: euthymic mood Insight: insight good Judgement: fair Skin: Common normals: no rashes or lesions noted General skin exam: no rashes or lesions noted Course Course ED Course: 83-year-old male with nontraumatic can pain with no focal motor deficits. Findings are not consistent with a radiculopathy or central nervous system etiology. Differential diagnosis including DVT, flare-up of osteoarthritis, cellulitis, phlebitis, amongst others. Low risk for DVT based on symptomatology and lack of risk factors. No fever, redness or skin changes to indicate cellulitis. Findings are quite focal and are associated with some chronic appearing changes. Discussed my thoughts and findings with patient. He suspects that this is the likely etiology as well. We discussed treatment options including conservative management, trial of NSAIDs or prednisone. He would like to try NSAIDs. Celebrex 200 mg p.o. given x1. He declines prednisone for now but I let him know that this may be a good choice if he is not starting to get some relief within a few days. Counseled that it is not unusual that the pain is worse at night as this can be fairly common. It is okay to use sleep aids like Benadryl, Unisom, melatonin to help with his symptoms at night as well. Tylenol 1000 mg t.i.d. encouraged. Alarm symptoms reviewed that would warrant ED presentation. Primary care follow-up if not improving in 2 weeks. He verbalizes understanding and agreement plan Vital Signs Vital signs: Initial Vital Signs Temperature 98.3 F 11/09/23 03:15 Temperature Source Oral 11/09/23 03:15 Pulse Rate 78 08/19/24 03:15 Pulse Rhythm Regular 11/09/23 03:15 Respiratory Rate 16 11/09/23 03:15 Blood Pressure 166/83 H 11/09/23 03:15 Blood Pressure Mean 110 H 11/09/23 03:15 Blood Pressure Position Sitting 11/09/23 03:15 Pulse Oximetry 96 11/09/23 03:15 Oxygen Delivery Method Room Air 11/09/23 03:15 Vital Signs Temperature 98.3 F 11/09/23 03:15 Pulse Rate 78 11/09/23 03:15 Respiratory Rate 16 11/09/23 03:15 Blood Pressure 166/83 H 11/09/23 03:15 Pulse Oximetry 96 11/09/23 03:15 Oxygen Delivery Method Room Air 11/09/23 03:15 Temperature 98.3 F 11/09/23 03:15 Pulse Rate 78 11/09/23 03:15 Respiratory Rate 16 11/09/23 03:15 Blood Pressure 166/83 H 11/09/23 03:15 Pulse Oximetry 96 11/09/23 03:15 Oxygen Delivery Method Room Air 11/09/23 03:15 Discharge Plan Discharge Clinical Impression: Osteoarthritis of hand Patient Disposition: Home, Self-Care Condition: Stable Instructions: Osteoarthritis (DC) Additional Instructions: As we discussed, your exam is consistent with osteoarthritis of the hand and a mild flare up. There are no signs of blood clot, stroke, infection or other dangerous etiology. The swelling can be common with these mild flare ups. The radiating pain up your arm is not uncommon and tends to be because the swelling puts a little bit of pressure on the sensory nerves. Your motor function looks great and I do not recommend further testing or workup. We discussed treatment options and you were in favor of trying the more gentle anti-inflammatory medications. Your given a dose of Celebrex here in the emergency department. I would recommend that you take this once daily for the next 2 weeks. You will not take additional ibuprofen or Aleve while you are on the Celebrex but you may continue using Tylenol 1000 mg 3 times daily for pain. Try to avoid tight gripping, as that will exacerbate your pain. Thing should start to improve in a few days. If you are not getting any relief in 2 weeks, please make a follow-up appointment with your primary care doctor to discuss alternative treatments. We did discuss prednisone as well which can be a very effective anti-inflammatory agent but does have some side effects. At this time you would prefer the Celebrex which I think is a good choice. Often, the pain is worse at night. Therefore it is okay to use gentle sleep aids to help you sleep as well. I recommend melatonin 10 mg and or 25-50 mg of Benadryl which is also the sleep agent in Tylenol p.m. if you prefer to use that. You should come to an emergency department if you have motor changes and difficulty with function. Otherwise for things like high fever, severe sickness, loss of consciousness or other similar worrisome findings. Activity Level: No Restrictions Discharge Diet: Regular Prescriptions: New celecoxib [Celebrex] 200 mg capsule 200 mg PO DAILY PRN (Reason: pain) Qty: 14 1RF No Action triamcinolone acetonide 0.1 % ointment 1 applic topical BID PRN (Reason: dermatitis ) Qty: 30 0RF Unisom (doxylamine) 25 mg tablet 25 mg PO QHS PRN melatonin 3 mg capsule 3 mg PO HS PRN multivitamin Tablet 1 tab PO DAILY senna 8.6 mg capsule 8.6 mg PO BID atorvastatin 20 mg tablet 20 mg PO DAILY tamsulosin 0.4 mg capsule 0.4 mg PO Q24H Hold Instructions: Doctor's Order gabapentin 100 mg capsule 100 mg PO Q8H metoprolol succinate 25 mg tablet extended release 24 hr 25 mg PO DAILY aspirin [Aspirin Childrens] 81 mg tablet,chewable 81 mg PO DAILY cholecalciferol (vitamin D3) 50 mcg (2,000 unit) capsule 2,000 unit PO DAILY ferrous sulfate 325 mg (65 mg iron) tablet,delayed release (DR/EC) 325 mg PO DAILY Follow Up/Referrals: QUENTIN PATEL DO [Primary Care Provider] - Stand Alone Forms: [employer] Info Instructions
[2023-11-09] MEDS: CELECOXIB 200 MG CAPSULE PO (04:06)
--- OUTSIDE RECORDS SUMMARY | 2023-11-09 04:07 | XMS_ITS | Clinical Summary ---
Author Organization [employer] [facility] Address [place], [place] [address] Care Team Providers Care Coper Hand Name Role Phone Kelly Villegas AuD Unavailable Courtney Munoz DO Primary Care Provider [phone] Allergies Active Allergy Reactions Criticality Noted Date Comments Codeine GI Upset,Nausea Only Low 05/27/2006 Medications Medication Sig Dispensed Refills Start Date End Date Status multivitamin (MVI) tablet Take 1 Tablet by mouth once daily. Active acetaminophen (TYLENOL EXTRA STRGTH) 500 mg tabletIndication s:S/P MVR (mitral valve replacement) Take 2 Tablets by mouth every 6 hours if needed for Pain. Max acetaminophen dose: 4000mg in 24 hrs. 0 2 Active aspirin chewable 81 mg chewable tabletIndication s:Subacute bacterial endocarditis Chew 1 Tablet (81 mg) by mouth once daily with a meal. 180 Tablet 2 2 Active famotidine (PEPCID) 20 mg tabletIndication s:Gastroesophage al reflux disease with esophagitis, unspecified whether hemorrhage Take 1 Tablet (20 mg) by mouth two times daily. As needed. 180 Tablet 3 3 Active ferrous sulfate 325 mg delayed release tabletIndication s:Microcytic anemia TAKE ONE TABLET BY MOUTH EVERY DAY WITH A MEAL 90 Tablet 2 4 Active tamsulosin (FLOMAX) 0.4 mg capsuleIndicatio ns:BPH with urinary obstruction TAKE ONE CAPSULE BY MOUTH EVERY EVENING 90 Capsule 3 4 Active metoprolol succinate (TOPROL XL) 25 mg Sustained-Releas e tabletIndication s:S/P MVR (mitral valve replacement),Car diomyopathy, unspecified type (HC) TAKE ONE TABLET BY MOUTH ONCE DAILY 90 Tablet 1 4 Active cholecalciferol (VITAMIN D3) 2,000 unit capsuleIndicatio ns:Vitamin D deficiency Take 1 Capsule (2,000 units) by mouth once daily. 90 Capsule 2 4 Active atorvastatin (LIPITOR) 20 mg tabletIndication s:Disorder of lipoid metabolism TAKE ONE TABLET BY MOUTH EVERY DAY 90 Tablet 2 4 Active ketoconazole 2 % creamIndications :Tinea cruris Apply topically to affected area(s) two times daily. 60 g 3 4 Active gabapentin (NEURONTIN) 100 mg capsuleIndicatio ns:Radiculopathy of cervical spine,Radicular low back pain Take 1 Capsule (100 mg) by mouth three times daily. 270 Capsule 4 Active melatonin 3 mg tablet Take 3 mg by mouth at bedtime if needed. 0 4 024 Discontinued(*P atient states no longer taking) doxylamine (UNISOM) 25 mg tablet Take 1 tablet by mouth at bedtime if needed for Sleep. 0 8 024 Discontinued(*P atient states no longer taking) polyethylene glycoL (MIRALAX) 17 gram/dose powderIndication s:Constipation, acute Mix 1 scoop (17 g) in liquid then take by mouth once daily if needed for Constipation. 507 g 2 024 Discontinued(*P atient states no longer taking) ammonium lactate 12% (LACHYDRIN) 12 % cream 3 024 Discontinued(*P atient states no longer taking) ketoconazole 2% topical (NIZORAL) creamIndications :Tinea cruris Apply topically to affected area(s) two times daily. 60 g 3 024 Discontinued(Re order (E-cancel not sent)) amoxicillin (AMOXIL) 500 mg capsule 4 024 Discontinued(*P atient states no longer taking) triamcinolone 0.5% (ARISTOCORT) 0.5 % creamIndications :Dermatitis APPLY TOPICALLY TO AFFECTED AREAS TWO TIMES DAILY 15 g 4 024 Discontinued(*P atient states no longer taking) gabapentin (NEURONTIN) 100 mg capsuleIndicatio ns:Radiculopathy of cervical spine,Radicular low back pain TAKE ONE CAPSULE BY MOUTH 3 TIMES DAILY 270 Capsule 4 024 Discontinued cephalexin (KEFLEX) 500 mg capsuleIndicatio ns:skin and skin structure infection Take 1 Capsule (500 mg) by mouth four times daily for 10 days. 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 Overview: Abiotrophia sepsis, infective endocarditis Radicular low back pain 03/03/2021 Primary osteoarthritis of left foot 12/19/2020 Overview: Left pinky toe Gastroesophageal reflux disease 04/20/2019 Bilateral kidney stones 05/05/2016 HTN (hypertension) 12/12/2015 Chronic left hip pain 04/06/2015 Hyperlipidemia 12/28/2012 Radiculopathy of cervical spine 06/28/2010 Bilateral sensorineural hearing loss 05/24/2010 Overview: identified in 2006 identified in 2006 Plantar fasciitis 11/28/2008 Hypertrophy of prostate with out urinary obstruction and other lower urinary tract symptoms (LUTS) 11/28/2008 Hyperplastic colon polyp 07/06/2008 Overview: Colonoscopy 06/2008 hyperplastic polyp repeat in 10 years Colonoscopy 05/2017 small ileal ulcer from asprin, no follow up needed Encounters Date Type Department Care Team Description 10/29/2023 Nurse Triage [facility] [address] [facility] [address] Courtney Munoz DO Questions 10/27/2023 12:55 PM CDT Office Visit [facility] [address] [place] [address] Latanya Guerrero PA Toe Pain/problem 10/27/2023 Travel 10/24/2023 Refill [facility] [address] [place] [address] Courtney Munoz DO Refill Request (Gabapentin) 10/16/2023 3:45 PM CDT Office Visit [facility] [address] [place] [address] Courtney Munoz DO Foot Pain/problem 10/16/2023 Travel 09/18/2023 Refill [facility] [address] [place] [address] Courtney Munoz DO Refill Request (Atorvastatin) from Last 3 Months Immunizations Name Administration Dates Next Due COVID-19 vaccine (Moderna 100mcg/0.5mL) PF, MDV 01/15/2021,06/20/2020,05/23/2020 COVID-19 vaccine (Moderna Kb aubree 50mcg/0.25mL) PF, MDV 07/04/2021 COVID-19 vaccine (Pfizer-Bio NTech 30mcg/0.3mL) 12YO+ BIVALENT PF, MDV 07/17/2022 Influenza A (H1N1), Inactivated 04/03/2009 Influenza Virus, Unspecified 12/30/2018 Influenza, High-dose Inactivated 12/12/2015,100 08/2014,12/20/2013 Influenza, High-dose Quadriv alent Inactivated 12/29/2019 Influenza, IIV3 (Age 6-35 mos) 12/10/2010 Influenza, IIV3 (Age >=3 years) 12/29/19 13,12/09/2011,12/10/2010,2009,01/06/2008,01/20/2007,01/07/2006,1 04/20/2004 Influenza, Inactivated AIIV4 (Age 65+ Years) Preserv Free 02/14/2023,12/02/2021,11/23/2020 Influenza, Inactivated IIV3 (Age 65+ Years) Preserv Free 12/01/2017,01/08/2017 Pneumococcal Poly,23-Valent (Pneumovax) 04/23/2010 Pneumococcal conj 13-Valent (Prevnar 13) 04/15/2016 Td (Age >=7 Years) 12/03/1999 Td, Preservative Free (age > = 7 Years) 04/23/2010 Tdap 11/20/2021 Zoster (Shingrix-RZV, recombinant) 08/27/2018, Family History Medical History Relation Name Comments Diabetes type I Brother Cancer-breast Mother Diabetes type I Sister Relation Name Status Comments Brother (Age 70) Father (Age 89) old age Mother (Age 74) breast can cer Sister (Age 56) heart fail ure Social History Tobacco Use Types Packs/Day Years Used Date Smoking Tobacco: Former Cigarettes 2 5 0 11/23/1965 - 03/23/1970 Pipe Smokeless Tobacco: Never Tobacco Cessation:Counseling Given: Yes Alcohol Use Standard Drinks/Week Comments Not Currently 0 (1 standard drink = 0.6 oz pur e alcohol) wine or beer occasionally PHQ-2 Answer Date Recorded PHQ-2 TOTAL SCORE 0 07/17/2022 Social Connections Answer Date Recorded Frequency of Communication with Friends and Fami ly Not on file 10/22/2023 Financial Resource Strain Answer Date R ecorded Difficulty of Paying Living Expenses 3 10/20/2022 Difficulty of Paying Living Expenses Not on file 10/20/2022 Food Insecurity Answer Date Recorded Worried About Running Out of Food in the Last Ye ar 1 10/20/2022 Transportation Needs Answer Date Record ed Lack of Transportation (Medical) 1 10/20/2022 Housing Stability Answer Date Recorded Unable to Pay for Housing in the Last Year 1 10/20/2022 Sex and Gender Information Value Date Recorded Sex Assigned at Not on file Gender Identity Not on file Sexual Orientation Not on file Obstetrics History Last Filed Vital Signs Vital Sign Reading Time Taken Comments Blood Pressure 142/83 10/27/2023 12:55 PM CDT Pulse 73 10/27/2023 12:55 PM CDT Temperature 36.1 ??C (97 ??F) 05/31/2023 9:26 AM CDT Respiratory Rate 16 05/31/2023 11:19 AM CDT Oxygen Saturation 97% 10/27/2023 12:55 PM CDT Inhaled Oxygen Concentration - - Weight 94 kg (207 lb 4.8 oz) 10/16/2023 3:45 PM CDT Height 177.8 cm (5' 10) 07/23/2023 10:21 AM CDT Body Mass Index 29.74 07/23/2023 10:21 AM CDT Plan of Treatment Health Maintenance Due Date Last Done Comments Medicare Wellness for age 65+ 07/18/2023, 07/09/2021, 05/29/2020, Additional history exists Depression screening for age 12+ 07/19/2023 07/18/2022, 07/17/2022, 08/12/2021, Additional history exists Influenza for age 65+ 11/22/2023 02/14/2023 , 12/02/2021, 11/23/2020, Additional history exists BMI (ht and wt on same day) for age 18+ 07/22/2024 07/23/2023, 05/28/2022, 02/24/2022, Additional history exists Tetanus booster 11/21/2031 11/20/2021, 02/03/2010, 04/23/2010, Additional history exists Pneumococcal series for age 65+ Completed 7, 04/23/2010 Zoster (shingles) series for age 50+ Completed 08/27/2018, 05/05/2018 Tdap Completed 11/20/2021 COVID-19 vaccine series Completed 10/10/19, 12/17/2022, 07/17/2022, Additional history exists Medical Devices Implanted Type Area Drum Drier Operator Device Identifier Shelf Expiration Date Model / Serial / Lot Valve Mitral 31mm Epic Plus Porcine Tissue - [id number] Implanted:Qty: 1 on 06/19/2021 by Tito Mosher MD at [facility] Cv Implants N/A: Mitral Valve [employer] [facility] 02/11/2022 [id number] / [id number] / Valve Aortic 25mm [employer] Resilia Tissue - [id number] Implanted:Qty: 1 on 06/19/2021 by Tito Mosher MD at [facility] Cv Implants N/A: Mitral Valve [employer] Justin 01/30/2025 [id number] / [id number] / Stent Uret [id number] Contour - [id number] Implanted:Qty: 1 on 05/23/2016 by Liang Burger MD at [facility] [employer]reter C Urology 12/18/2018 [id number] / / [id number] Procedures Procedure Name Priority Date/Time Associated Diagnosis Comments PLATELET COUNT Routine 10/16/2023 4:22 PM CDT Petechiae WHITE BLOOD COUNT Routine 10/16/2023 4:2 2 PM CDT Petechiae from Last 3 Months Results * PLATELET COUNT (10/16/2023 4:22 PM CDT) PLATELET COUNT 185 140 - 440 thou/cu mm 10/16/2023 4:26 PM CDT [facility] MPV 9.3 6.5 - 11.0 fL 10/16/2023 4:26 PM CDT [facility] Blood BLOOD SPECIMEN / Unknown Venipuncture / Unknown 10/16/2023 4:22 PM CDT 10/16/2023 4:23 PM CDT Courtney Munoz DO HEMATOLOGY [facility] [address] [place] [address], [place] [phone] * WHITE BLOOD COUNT (10/16/2023 4:22 PM CDT) WHITE BLOOD COUNT 8.0 4.5 - 11.0 thou/cu mm 10/16/2023 4:26 PM CDT [facility] Blood BLOOD SPECIMEN / Unknown Venipuncture / Unknown 10/16/2023 4:22 PM CDT 10/16/2023 4:23 PM CDT Courtney Alonzochad HODGE HEMATOLOGY [facility] [address] [place] [address], [place] [phone] from Last 3 Months Advance Directives Documents on File Type Date Recorded 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 Pt should be considered full code early post-cardiac surgery while in the ICU. Question Answer Comments Code Status Discussion: Other * DNR Date Activated Date Inactivated Comments 06/13/2021 3:33 PM 06/19/2021 8:13 PM Question Answer Comments Code Status Discussion: Reviewed Preferences * Full Code Date Activated Date Inactivated Comments 05/07/2021 7:49 PM 05/13/2021 5:31 PM Question Answer Comments Code Status Discussion: Other * Full Code Date Activated Date Inactivated Comments 07/18/2016 9:44 AM 07/18/2016 4:24 PM * Full Code Date Activated Date Inactivated Comments 05/23/2016 11:30 AM 05/23/2016 10:53 PM Care Teams Coper Hand Relationship Specialty Start Date End Date Courtney Munoz DO [address] [place] [address] PCP - General Family Practice 10/09/20 Kelly Villegas AuD Audiology 11/11/11
--- OUTSIDE RECORDS SUMMARY | 2023-11-09 04:07 | XMS_ITS | Continuity of Care Document ---
Author Organization [facility] Address [address] [place] [address] Phone Care Team Providers Care Corporate Counselor Name Role Phone Rosalie Hdez Unavailable Unavailable Procedures Procedure Date Office/outpatient visit,[facility] 2010 Advance Directives Directive Yes / No Effective Date File Name No Information Encounters Encounter Description Practice Location Reason(s) For Visit Diagnoses Date Provider Providers Copied on Encounter Office/outpat ient visit,[facility], [facility], [address], [place], [address], [place] tel:[phone] [facility] No Information Kristy Wiggins. [facility], [address] [place] [address], [address], [place]. tel:[phone] Referring Provider: Chet Arana, [address], [address]. tel:[phone] Family History Family Member Type Diagnosis Age At Onset No Information Payers Payer name Insurance type Covered constitution party ID Authoriza tijuan carlos(s) [employer] Medicare CI [id number] Social History Type Description Quantity Date Captured Comments Sex Male Smoking Status No Information Vital Signs Date / Time: Height Weight BMI Pulse Rate Blood Pressure Temperature Respiratory Rate Body Surface Area Head Circumference Head Circ. Percentile Wt./Jono. Percentile BMI percentile Pulse Ox Inhaled Ox 8:42 AM 71.00 in 89.700 kg (197.40 lbs) 27.5 8 kg/m eter (2) 76 /min 156/85 mm[Hg] Chief Complaint And Reason For Visit No Information Reason For Referral Reason For Referral No Information History Of Present Illness Encounter Date Complaint History Of Prese nt Illness No Information Functional Status Date Functional Assessmen t No Information Instructions Date Instruction Additional Infor mation No Information Assessments Type Assessment Date No Information Patient Care Teams Name Effective Dates (start - stop) Status Members No Information
== END 2023-11-09 04:10 | disposition home or self-care (01) ==
LOC: ED 04:05
PROVIDERS: Emergency Provider Family Medicine; PCP Student in an Organized Health Care Education/Training Program
DX: M19.041 Primary osteoarthritis, right hand (principal)
CPT/HCPCS: 99283; A9270

== ENCOUNTER 2023-12-19 11:59 | Emergency (ER) | payer MEDICARE, SELFPAY ==
[2023-12-19] VITALS (13 sets, daily range): BP systolic 135–175; BP diastolic 78–110; PULSE 66–78; RESP 12–18; TEMP 36.2; O2SAT 91–98; BMI 28.2
--- NOTE | 2023-12-19 12:27 | CRLHL7_ITS ---
For Patients: As a result of the Century Cures Act, medical imaging exams and procedure reports are released immediately into your electronic medical record. You may view this report before your referring provider. If you have questions, please contact your health care provider. INDICATION: Acute stroke, right lower extremity and facial weakness. TECHNIQUE: CTA head with contrast bolus tracking, 3D angiographic rendering using maximum intensity projection (MIP) and images permanently archived. FINDINGS: There is scattered intracranial atherosclerotic disease. There is normal opacification of the intracranial vasculature. There is no large vessel occlusion. No aneurysm is identified. IMPRESSION: No large vessel occlusion. Please note that all CT scans at this facility use dose modulation, iterative reconstruction, and/or weight-based dosing when appropriate to reduce radiation dose to as low as reasonably achievable. Dictated by Hermes John MD @ 12/19/2023 2:02:03 PM (Electronically Signed)
--- NOTE | 2023-12-19 12:27 | CRLHL7_ITS ---
For Patients: As a result of the Century Cures Act, medical imaging exams and procedure reports are released immediately into your electronic medical record. You may view this report before your referring provider. If you have questions, please contact your health care provider. Indication : Weakness. Technique : CT of the brain without intravenous contrast. Comparison: CT head 11/25/2021. Findings: No acute blurring of the dozier-white differentiation. There is no intracranial hemorrhage. The ventricles are proportionate to the cerebral sulci. The 4th ventricle is midline. Basal cisterns appear patent. No abnormal extra-axial fluid collection identified. Stable mineralization left basal ganglia. Mild parenchymal volume loss. There is mild patchy periventricular hypodensity, favored to represent chronic ischemic microvascular disease. Chronic right parietal lobe infarct. There is no intracranial mass, mass effect or midline shift identified. No depressed calvarial fracture. Impression: 1. No acute intracranial process. 2. Mild chronic ischemic microvascular disease. 3. Stable chronic right parietal infarct. Please note that all CT scans at this facility use dose modulation, iterative reconstruction, and/or weight-based dosing when appropriate to reduce radiation dose to as low as reasonably achievable. Dictated by Luis Bailey MD @ 12/19/2023 1:20:09 PM (Electronically Signed)
--- NOTE | 2023-12-19 12:27 | CRLHL7_ITS ---
For Patients: As a result of the Century Cures Act, medical imaging exams and procedure reports are released immediately into your electronic medical record. You may view this report before your referring provider. If you have questions, please contact your health care provider. INDICATION: Acute stroke, right lower extremity and facial weakness. TECHNIQUE: CTA neck with contrast bolus tracking, 3D angiographic rendering using maximum intensity projection (MIP) and images permanently archived. FINDINGS: There is minor bilateral carotid atherosclerosis. There is no significant carotid artery stenosis or dissection. There is no significant vertebral artery stenosis or dissection. The soft tissues of the neck are within normal limits. The cervical spine is in normal alignment. Degenerative changes are noted in the cervical spine. IMPRESSION: No significant carotid or vertebral artery stenosis or dissection. Please note that all CT scans at this facility use dose modulation, iterative reconstruction, and/or weight-based dosing when appropriate to reduce radiation dose to as low as reasonably achievable. Dictated by Hermes John MD @ 12/19/2023 2:03:05 PM (Electronically Signed)
--- NOTE | 2023-12-19 12:29 | ED.NEUROSD ---
HPI - Neuro Symptoms/Deficit General Chief Complaint: Neuro Symptoms/Altered Deficit Stated Complaint: Fall Time Seen by Provider: 12/19/23 12:01 History of Present Illness HPI Narrative: This 83-year-old male comes in because of a rather brief episode of right-sided symptoms. He states that he was walking up some stairs and has rather sudden onset of right leg weakness. He grabbed the hand rails to ease his fall. He states that he does have a history of sciatica symptoms and is undergoing some physical therapy but he did not have any pain related to this but rather weakness that caused him to fall. He also reported a bit later some tingling sensation or altered sensation in his right face. He looked in the mirror and did not see any facial asymmetry. He called a friend and was able to speak normally and comes in now about an hour after these events happened for evaluation. He is taking a baby aspirin. He does not have any prior history of stroke. He does not report a headache. Related Data Home Medications ?Medication ?Instructions ?Recorded ?Confirmed aspirin 81 mg chewable tablet 81 mg PO DAILY 11/25/21 10/14/23 (Aspirin Childrens) atorvastatin 20 mg tablet 20 mg PO DAILY 11/25/21 10/14/23 cholecalciferol (vitamin D3) 50 2,000 unit PO DAILY 11/25/21 10/14/23 mcg (2,000 unit) capsule ferrous sulfate 325 mg (65 mg 325 mg PO DAILY 11/25/21 10/14/23 iron) tablet,delayed release gabapentin 100 mg capsule 100 mg PO Q8H 11/25/21 10/14/23 metoprolol succinate 25 mg 25 mg PO DAILY 11/25/21 10/14/23 tablet,extended release 24 hr tamsulosin 0.4 mg capsule 0.4 mg PO Q24H 11/25/21 10/14/23 doxylamine succinate 25 mg tablet 25 mg PO QHS PRN 02/25/22 10/14/23 (Unisom (doxylamine)) melatonin 3 mg capsule 3 mg PO HS PRN 02/25/22 10/14/23 multivitamin 1 tab PO DAILY 02/25/22 10/14/23 sennosides 8.6 mg capsule (senna) 8.6 mg PO BID 02/25/22 10/14/23 Previous Rx's ?Medication ?Instructions ?Recorded triamcinolone acetonide 0.1 % 1 applic topical BID PRN 10/14/23 topical ointment dermatitis #30 grams celecoxib 200 mg capsule (Celebrex) 200 mg PO DAILY PRN pain #14 caps 11/09/23 Allergies Allergy/AdvReac Type Severity Reaction Status Date / Time codeine AdvReac Mild gi upset, Verified 12/19/23 12:09 nausea Review of Systems Status of ROS: Reports: 10 or more systems reviewed and unremarkable except as noted in History and below Narrative: Constitutional: No fevers, no weight gain or loss. Eyes: No discharge. No vision changes. HENT: No congestion, no sore throat, no ear pain. Cardiovascular: No chest pain, no palpitations. Respiratory: No shortness of breath, no wheezes, no cough. Gastrointestinal: No abdominal pain, no vomiting, no diarrhea. Genitourinary: No dysuria, no hematuria. Musculoskeletal: Normal range of motion. Skin: No rashes, no pruritis. Neurological: No dizziness, speech change. Right lower extremity weakness and right facial tingling as described above. Endo/Heme/Allergies: No bruising or bleeding. No polydipsia. Pysch: no suicidality, no anxiety, no insomnia. All other systems reviewed and are negative. 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890 - Other specified postprocedural states (ICD-10) Aortic valve replaced ?Z95.2 - Presence of prosthetic heart valve (ICD-10) S/P ureteral stent placement ?Z96.0 - Presence of urogenital implants (ICD-10) H/O arthroscopy of shoulder ?Z98.890 - Other specified postprocedural states (ICD-10) H/O hernia repair ?Z98.890 - Other specified postprocedural states (ICD-10) ?Z87.19 - Personal history of other diseases of the digestive system (ICD-10) Social History Smoking Status: Former smoker Do you use any of these nicotine containing products: None Second hand tobacco smoke exposure: No How often do you have a drink containing alcohol: 2-4 times a month Alcohol type: wine How many standard drinks containing alcohol do you have on a typical day: 1 or 2 How often do you have six or more drinks on one occasion: Never AUDIT-C Alcohol total score: 2 Non-prescribed substance use: denies use Caffeine: No service: No Exam Narrative: Exam Narrative: Constitutional: Well-developed, well-nourished, no acute distress. HEENT: Normocephalic, atraumatic. Neck: Normal range of motion. Nontender. Supple. Heart: Regular. No murmurs. Normal rate. Intact distal pulses. Lungs: Clear to auscultation. No chest discomfort. No wheezes, rhonchi, or rales. Abdomen: Normal bowel sounds. Nontender. No rebound tenderness. Genitalia: Deferred. Back: No midline tenderness. Normal range of motion. Extremities: Normal range of motion. No injury. Skin: Intact. No rash. Warm. No erythema or pallor. Neurologic: No altered sensation. No weakness. Alert and oriented. No facial asymmetry. Tongue is midline. [id number] is normal. No pronator drift. Land Acquisition Manager strength is equal bilaterally. Able to raise each leg from the bed. Psychiatric: No suicidality. No anxiety or depression. No insomnia. Nursing notes and vitals signs are reviewed. Const: Vital Signs, click to edit/add: Vital Signs - 24 hr 12/19/23 12:09 12/19/23 12:23 12/19/23 12:25 Temperature 97.2 F L Pulse Rate 74 Pulse Rate [Pulse Oximeter] 78 Respiratory Rate 18 Blood Pressure Blood Pressure [Le ft Upper Arm] 160/81 H Pulse Oximetry 95 96 98 Oxygen Delivery Me thod Room Air 12/19/23 12:51 12/19/23 12:54 12/19/23 13:02 Temperature Pulse Rate 68 67 72 Pulse Rate [Pulse Oximeter] Respiratory Rate 16 14 Blood Pressure 147/84 H 143/78 H Blood Pressure [Le ft Upper Arm] Pulse Oximetry 96 96 97 Oxygen Delivery Me thod Course Vital Signs Vital signs: Initial Vital Signs Temperature 97.2 F L 12/19/23 12:09 Temperature Source Temporal Artery Scan 12/19/23 12:09 Pulse Rate 78 12/19/23 12:09 Pulse Rhythm Regular 12/19/23 12:09 Respiratory Rate 18 12/19/23 12:09 Blood Pressure 160/81 H 12/19/23 12:09 Blood Pressure Mean 107 H 12/19/23 12:09 Blood Pressure Position Supine 12/19/23 12:09 Pulse Oximetry 95 12/19/23 12:09 Oxygen Delivery Method Room Air 12/19/23 12:09 Vital Signs Temperature 97.2 F L 12/19/23 12:09 Pulse Rate 78 12/19/23 12:09 Respiratory Rate 18 12/19/23 12:09 Blood Pressure 160/81 H 12/19/23 12:09 Pulse Oximetry 95 12/19/23 12:09 Oxygen Delivery Method Room Air 12/19/23 12:09 Temperature 97.2 F L 12/19/23 12:09 Pulse Rate 72 12/19/23 13:02 Respiratory Rate 14 12/19/23 13:02 Blood Pressure 143/78 H 12/19/23 13:02 Pulse Oximetry 97 12/19/23 13:02 Oxygen Delivery Method Room Air 12/19/23 12:09 MDM - Neuro Symptoms/Deficit MDM Narrative Medical decision making narrative: This 83-year-old male comes in with a rather quick sudden onset of weakness in his right leg. A bit later he felt some tingling in the right face. He does have some back problems that he attributes to sciatica and has been doing some physical therapy maneuvers at home. He was doing these maneuvers just prior to the this event. He arrives here with normal vital signs and normal exam. His neurologic exam is completely normal. A CT scan of the head and CTA of head and neck is obtained and these returned with normal findings. The patient is taking a baby aspirin daily. His symptoms may be related to a transient ischemic attack but it seems that he may be having some nerve impingement in his low back causing symptoms down his leg and whatever was causing the altered sensation in his face has resolved. There was no weakness in his upper extremity or face during this time. He is okay to be discharged home. He is taking a baby aspirin daily and may consider increasing it to a full strength aspirin for few weeks. I advised him regarding signs and symptoms that would indicate a need for return re-evaluation. Lab Data Labs: Lab Results 12/19/23 12/19/23 Range/Units 12:23 12:28 WBC 4.72 (4.50-11.00) K/uL RBC 5.28 (4.30-5.90) m/uL Hgb 16.0 (13.5-17.5) gm/dL Hct 47.5 (37.0-53.0) % MCV 90 (80-100) fL MCH 30 (26-34) pg MCHC 34 (32-36) gm/dL RDW Coeff of Stephen 12.7 (11.5-15.5) % Plt Count 141 (140-440) K/uL Neut % (Auto) 64.7 (42.0-72.0) % Lymph % (Auto) 20.3 (20-44) % Mcdonough % (Auto) 14.6 H (0.0-11.0) % Eos % (Auto) 0.0 (0.0-7.0) % Baso % (Auto) 0.4 (0.0-3.0) % Neut # (Auto) 3.05 (1.7-7.0) K/uL Lymph # (Auto) 0.96 (0.90-2.90) K/uL Mcdonough # (Auto) 0.70 (0.00-0.90) K/UL Eos # (Auto) 0.00 (0.00-0.50) K/uL Baso # (Auto) 0.02 (0.00-0.30) K/uL Abs Immat Gran (auto) 0.00 (0.00-0.30) K/uL Imm/Tot Granulo (auto) 0.0 % Sodium 135 (135-149) mmol/L Potassium 4.2 (3.6-5.1) mmol/L Chloride 102 (96-114) mmol/L Carbon Dioxide 24 (20-32) mmol/L Anion Gap 9 (7-15) mEq/L BUN 18 (7-30) mg/dL Creatinine 0.7 (0.5-1.5) mg/dL Estimated Creat Clear 59.61 Estimated GFR 91 ml/min Glucose 111 (60-115) mg/dL Calcium 9.8 (8.4-10.6) mg/dL POC Creatinine 0.9 (0.6-1.3) mg/dl POC Troponin I 0.01 (0.01-0.04) ng/ml Imaging Data CT scan - head: Radiologist's impression: 1. No acute intracranial process. 2. Mild chronic ischemic microvascular disease. 3. Stable chronic right parietal infarct. CTA: No large vessel occlusion. No significant carotid or vertebral artery stenosis or dissection. ECG Data Attestation: I personally reviewed and interpreted this ECG as follows: Interpretation: Sinus rhythm with 1st degree AV block and some premature beats. There are no specific ST or T-wave abnormalities. Rate is 75 beats per minute. Discharge Plan Discharge Clinical Impression: Sciatica, Facial paresthesia Patient Disposition: Home, Self-Care Condition: Improved Additional Instructions: Continue current plans. You may wish to increase aspirin to regular strength aspirin daily. Follow-up with primary physician for ongoing management. Return if symptoms are recurrent or worsening. Prescriptions: No Action triamcinolone acetonide 0.1 % ointment 1 applic topical BID PRN (Reason: dermatitis ) Qty: 30 0RF Unisom (doxylamine) 25 mg tablet 25 mg PO QHS PRN melatonin 3 mg capsule 3 mg PO HS PRN multivitamin Tablet 1 tab PO DAILY senna 8.6 mg capsule 8.6 mg PO BID celecoxib [Celebrex] 200 mg capsule 200 mg PO DAILY PRN (Reason: pain) Qty: 14 1RF atorvastatin 20 mg tablet 20 mg PO DAILY tamsulosin 0.4 mg capsule 0.4 mg PO Q24H Hold Instructions: Doctor's Order gabapentin 100 mg capsule 100 mg PO Q8H metoprolol succinate 25 mg tablet extended release 24 hr 25 mg PO DAILY aspirin [Aspirin Childrens] 81 mg tablet,chewable 81 mg PO DAILY cholecalciferol (vitamin D3) 50 mcg (2,000 unit) capsule 2,000 unit PO DAILY ferrous sulfate 325 mg (65 mg iron) tablet,delayed release (DR/EC) 325 mg PO DAILY Follow Up/Referrals: QUENTIN PATEL DO [Primary Care Provider] - Stand Alone Forms: MyHealth Info Instructions
[2023-12-19 12:37] LABS: Basophils Absolute Auto 0.02 K/uL (0.00-0.30); Basophils Percent Auto 0.4 % (0.0-3.0); Hematocrit 47.5 % (37.0-53.0); Lymphocytes Absolute Auto 0.96 K/uL (0.90-2.90); Lymphocytes Percent Auto 20.3 % (20-44); Mean Corpuscular HGB Conc 34 gm/dL (32-36); Mean Corpuscular Hemoglobin 30 pg (26-34); Mean Corpuscular Volume 90 fL (80-100); Monocytes Percent Auto 14.6 % (0.0-11.0); Neutrophils Absolute Auto 3.05 K/uL (1.7-7.0); Neutrophils Percent Auto 64.7 % (42.0-72.0); Platelet Count* 141 K/uL (140-440); RDW Coefficient of Variation % 12.7 % (11.5-15.5); Red Blood Count 5.28 m/uL (4.30-5.90); White Blood Count* 4.72 K/uL (4.50-11.00)
[2023-12-19 12:40] LABS: Slide Review Reflex No
[2023-12-19 12:41] LABS: Creatinine, Point-of-Care* 0.9 mg/dl (0.6-1.3)
[2023-12-19 12:43] LABS: Troponin, Point-of-Care* 0.01 ng/ml (0.01-0.04)
[2023-12-19 12:52] LABS: Chloride* 102 mmol/L (96-114); Potassium* 4.2 mmol/L (3.6-5.1); Sodium* 135 mmol/L (135-149)
[2023-12-19 12:54] LABS: Creatinine* 0.7 mg/dL (0.5-1.5); Est. Creatinine Clearance* 59.61; Estimated Glomerular Filt Rate 91 ml/min
[2023-12-19 12:55] LABS: Anion Gap 9 mEq/L (7-15); Blood Urea Nitrogen* 18 mg/dL (7-30); Calcium* 9.8 mg/dL (8.4-10.6); Carbon Dioxide* 24 mmol/L (20-32); Glucose* 111 mg/dL (60-115)
--- OUTSIDE RECORDS SUMMARY | 2023-12-19 13:24 | XMS_ITS | Clinical Summary ---
Author Organization [employer] [facility] Address [place], [place] [address] Care Team Providers Care Classics Professor Name Role Phone Kelly Villegas Rudi Unavailable [phone] Courtney Munoz DO Primary Care Provider [phone] Allergies Active Allergy Reactions Criticality Noted Date Comments Codeine GI Upset,Nausea Only Low 05/27/2006 Medications Medication Sig Dispensed Refills Start Date End Date Status multivitamin (MVI) tablet Take 1 Tablet by mouth once daily. Active acetaminophen (TYLENOL EXTRA STRGTH) 500 mg tabletIndications :S/P MVR (mitral valve replacement) Take 2 Tablets by mouth every 6 hours if needed for Pain. Max acetaminophen dose: 4000mg in 24 hrs. 0 2 Active aspirin chewable 81 mg chewable tabletIndications :Subacute bacterial endocarditis Chew 1 Tablet (81 mg) by mouth once daily with a meal. 180 Tablet 2 2 Active famotidine (PEPCID) 20 mg tabletIndications :Gastroesophageal reflux disease with esophagitis, unspecified whether hemorrhage Take 1 Tablet (20 mg) by mouth two times daily. As needed. 180 Tablet 3 3 Active ferrous sulfate 325 mg delayed release tabletIndications :Microcytic anemia TAKE ONE TABLET BY MOUTH EVERY DAY WITH A MEAL 90 Tablet 2 4 Active cholecalciferol (VITAMIN D3) 2,000 unit capsuleIndication s:Vitamin D deficiency Take 1 Capsule (2,000 units) by mouth once daily. 90 Capsule 2 4 Active atorvastatin (LIPITOR) 20 mg tabletIndications :Disorder of lipoid metabolism Take 1 Tablet (20 mg) by mouth once daily. 90 Tablet 3 4 Active gabapentin (NEURONTIN) 100 mg capsuleIndication s:Radiculopathy of cervical spine,Radicular low back pain Take 1 Capsule (100 mg) by mouth three times daily. 270 Capsule 3 4 Active metoprolol succinate (TOPROL XL) 25 mg Sustained-Release tabletIndications :S/P MVR (mitral valve replacement),Card iomyopathy, unspecified type (HC) Take 1 Tablet (25 mg) by mouth once daily. 90 Tablet 3 4 Active tamsulosin (FLOMAX) 0.4 mg capsuleIndication s:BPH with urinary obstruction Take 1 Capsule (0.4 mg) by mouth at bedtime. 90 Capsule 3 4 Active tamsulosin (FLOMAX) 0.4 mg capsuleIndication s:BPH with urinary obstruction TAKE ONE CAPSULE BY MOUTH EVERY EVENING 90 Capsule 3 4 12/17/19 24 Discontinue d(Reorder (E-cancel not sent)) metoprolol succinate (TOPROL XL) 25 mg Sustained-Release tabletIndications :S/P MVR (mitral valve replacement),Card iomyopathy, unspecified type (HC) TAKE ONE TABLET BY MOUTH ONCE DAILY 90 Tablet 1 4 12/17/19 24 Discontinue d(Reorder (E-cancel not sent)) atorvastatin (LIPITOR) 20 mg tabletIndications :Disorder of lipoid metabolism TAKE ONE TABLET BY MOUTH EVERY DAY 90 Tablet 2 4 12/17/19 24 Discontinue d(Reorder (E-cancel not sent)) ketoconazole 2 % creamIndications: Tinea cruris Apply topically to affected area(s) two times daily. 60 g 3 4 11/26/19 24 Discontinue d(*Patient states no longer taking) gabapentin (NEURONTIN) 100 mg capsuleIndication s:Radiculopathy of cervical spine,Radicular low back pain Take 1 Capsule (100 mg) by mouth three times daily. 270 Capsule 4 12/17/19 24 Discontinue d(Reorder (E-cancel not sent)) predniSONE (DELTASONE) 20 mg tabletIndications :Pain of left great toe Take 3 Tablets (60 mg) by mouth once daily with a meal for 2 days, THEN 2 Tablets (40 mg) once daily with a meal for 2 days, THEN 1 Tablet (20 mg) once daily with a meal for 2 days. 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 Overview (06/14/2021): Abiotrophia sepsis, infective endocarditis Radicular low back pain 03/03/2021 Primary osteoarthritis of left foot 12/19/2020 Overview (12/19/2020): Left pinky toe Gastroesophageal reflux disease 04/20/2019 Bilateral kidney stones 05/05/2016 HTN (hypertension) 12/12/2015 Chronic left hip pain 04/06/2015 Hyperlipidemia 12/28/2012 Radiculopathy of cervical spine 06/28/2010 Bilateral sensorineural hearing loss 05/24/2010 Overview (03/28/2021): identified in 2006 identified in 2006 Plantar fasciitis 11/28/2008 Hypertrophy of prostate with out urinary obstruction and other lower urinary tract symptoms (LUTS) 11/28/2008 Hyperplastic colon polyp 07/06/2008 Overview (06/08/2017): Colonoscopy 06/2008 hyperplastic polyp repeat in 10 years Colonoscopy 05/2017 small ileal ulcer from asprin, no follow up needed Encounters Date Type Department Care Team Description 12/17/2023 2:30 PM CDT [facility] [address] [place] [address] Courtney Munoz DO Medicare ANNUAL (subsequent) Visit (83 year old ); Hand Pain/problem (LEFT hand - skin pulled back from hitting his hand on the door ) 12/17/2023 Travel 11/28/2023 Nurse Triage [facility] [address] [place] [address] Courtney Munoz, Questions 11/26/2023 4:15 PM CDT Ancillary Procedure [address] [address] 11/26/2023 3:45 PM CDT Office Visit [facility] [address] [facility] [place] [address] Courtney Munoz DO Follow Up (Rash in groin area ); Numbness (Rt hip and rt calf x 2 weeks ); Toe Pain/problem (Pain in left big toe ) 11/26/2023 Travel 10/29/2023 Nurse Triage [facility] [address] [place] [address] Courtney Munoz DO Questions 10/27/2023 12:55 PM CDT Office Visit [facility] [address] [place] [address] Latanya Guerrero PA Toe Pain/problem 10/27/2023 Travel 10/24/[address] [address] Courtney Munoz DO Refill Request (Gabapentin) 10/16/2023 3:45 PM CDT Office Visit [address] [address] Courtney Munoz DO Foot Pain/problem 10/16/2023 Travel 09/18/2023 Refill [facility] [address] [place] [address] Courtney Munoz DO Refill Request (Atorvastatin) from Last 3 Months Immunizations Name Administration Dates Next Due COVID-19 VACCINE SPIKEVAX (M ODERNA 50MCG/0.5ML) 12YO+ PFS 12/17/2023 COVID-19 vaccine (Moderna 100mcg/0.5mL) PF, MDV 01/15/2021,06/20/2020,05/23/2020 COVID-19 vaccine (Moderna Kb aubree 50mcg/0.25mL) PF, MDV 07/04/2021 COVID-19 vaccine (Pfizer-Bio NTech 30mcg/0.3mL) 12YO+ BIVALENT PF, MDV 07/17/2022 Influenza A (H1N1), Inactivated 04/03/2009 Influenza Virus, Unspecified 12/30/2018 Influenza, High-dose Inactivated 12/12/2015,10/0 08/2014,12/20/2013 Influenza, High-dose Quadriv alent Inactivated 12/29/2019 Influenza, IIV3 (Age 6-35 mos) 12/10/2010 Influenza, IIV3 (Age >=3 years) 12/29/19 13,12/09/2011,12/10/2010,12/18,01/06/2008,01/20/2007,01/07/2006 ,02/18/2005 Influenza, Inactivated AIIV4 (Age 65+ Years) Preserv Free 02/14/2023,12/02/2021,11/23/2020 Influenza, Inactivated IIV3 (Age 65+ Years) Preserv Free 12/17/2023,12/01/2017,01/08/2017 Pneumococcal Poly,23-Valent (Pneumovax) 04/23/2010 Pneumococcal conj 13-Valent (Prevnar 13) 04/15/2016 RSV, Recombinant ADJ Reconst ituted (Arexvy 120MCG/0.5mL) 03/28/2023 Td (Age >=7 Years) 12/03/1999 Td, Preservative Free (age >= 7 Years) 1 Tdap 11/20/2021 Zoster (Shingrix-RZV, recombinant) 08/27/2018, Family [...] Answer Date Recorded PHQ-2 TOTAL SCORE 0 12/17/2023 Social Connections Answer Date Recorded Frequency of Communication with Friends and Fami ly 0 12/17/2023 Financial Resource Strain Answer Date R ecorded Difficulty of Paying Living Expenses 3 12/17/2023 Difficulty of Paying Living Expenses Not on file 12/17/2023 Food Insecurity Answer Date Recorded Worried About Running Out of Food in the Last Ye ar 1 12/17/2023 Transportation Needs Answer Date Record ed Lack of Transportation (Medical) 1 12/17/2023 Housing Stability Answer Date Recorded Unable to Pay for Housing in the Last Year 1 12/17/2023 Sex and Gender Information Value Date Recorded Sex Assigned at Not on file Gender Identity Not on file Sexual Orientation Not on file Obstetrics History Last Filed Vital Signs Vital Sign Reading Time Taken Comments Blood Pressure 120/72 12/17/2023 2:43 PM CDT Pulse 74 12/17/2023 2:43 PM CDT Temperature 36.5 ??C (97.7 ??F) 11/26/2023 3:42 PM CD T Respiratory Rate 16 05/31/2023 11:19 AM CDT Oxygen Saturation 99% 12/17/2023 2:43 PM CDT Inhaled Oxygen Concentration - - Weight 93.6 kg (206 lb 4.8 oz) 12/17/2023 2:43 P M CDT Height 177.8 cm (5' 10) 12/17/2023 2:43 PM CDT Body Mass Index 29.6 12/17/2023 2:43 PM CDT Plan of Treatment Health Maintenance Due Date Last Done Comments BMI (ht and wt on same day) for age 18+ 12/16/2024 12/17/2023, 07/23/2023, 05/28/2022, Additional history exists Depression screening for age 12+ 12/16/2024 12/17/2023, 11/28/2023, 11/26/2023, Additional history exists Medicare Wellness for age 65+ 12/17/2024, 07/17/2022, 07/09/2021, Additional history exists Tetanus booster 11/21/2031 11/20/2021, 03/2010, 04/23/2010, Additional history exists Pneumococcal series for age 65+ Completed 7, 04/23/2010 Zoster (shingles) series for age 50+ Completed 08/27/2018, 05/05/2018 Tdap Completed 11/20/2021 RSV vaccine for adults or Completed 03/28/2023 COVID-19 vaccine series Completed 12/17/19, 10/10/2023, 12/17/2022, Additional history exists Influenza for age 65+ Completed 12/17/2023 , 02/14/2023, 12/02/2021, Additional history exists Medical Devices Implanted Type Area Real Estate Leasing Manager Device Identifier Shelf Expiration Date Model / Serial / Lot Valve Mitral 31mm Epic Plus Porcine Tissue - [id number] Implanted:Qty: 1 on 06/19/2021 by Tito Mosher MD at [facility] Cv Implants N/A: Mitral Valve [employer] [facility] 02/11/2022 [id number] / [id number] / Valve Aortic 25mm Inspirus Resilia Tissue - [id number] Implanted:Qty: 1 on 06/19/2021 by Tito Mosher MD at [facility] Cv Implants N/A: Mitral Valve [employer] Justin 01/30/2025 [id number] / [id number] / Stent Uret [id number] Contour - [id number] Implanted:Qty: 1 on 05/23/2016 by Liang Burger MD at [facility] [place] [facility] [place] 12/18/2018 [id number] / / [id number] Procedures Procedure Name Priority Date/Time Associated Diagnosis Comments PSA (TOTAL) ([facility]) Routine 12/17/2023 3:29 PM CDT BPH with urinary obstruction Prostate cancer screening LIPID PANEL W REFLEX MEASURED LDL Routine 12/17/2023 3:29 PM CDT Mixed hyperlipidemia BASIC METABOLIC PANEL Routine 12/17/2023 3:29 PM CDT Cardiomyopathy, unspecified type (HC) XR TOES 3 VIEWS LEFT Routine 11/26/2023 4:25 PM CDT Pain of left great toe URIC ACID Routine 11/26/2023 4:10 PM CDT Pain of left great toe PLATELET COUNT Routine 10/16/2023 4:22 PM CDT Petechiae WHITE BLOOD COUNT Routine 10/16/2023 4:2 2 PM CDT Petechiae from Last 3 Months Results * PSA (TOTAL) (QUEST) (12/17/2023 3:29 PM CDT) PSA, TOTAL 2.32 < OR = 4.00 ng/mL [employer] Comment: The total PSA value from this assay system is standardized against the WHO standard. The test result will be approximately 20% lower when compared to the equimolar-standardized total PSA (Kaz Aashish). Comparison of serial PSA results should be interpreted with this fact in mind. This test was performed using the Siemens chemiluminescent method. Values obtained from different assay methods cannot be used interchangeably. PSA levels, regardless of value, should not be interpreted as absolute evidence of the presence or absence of disease. Blood BLOOD SPECIMEN / Unknown 12/17/2023 3:29 PM CDT 12/17/2023 3:29 PM CDT Courtney Munoz DO SEND OUTS [facility] [address] [place] [address], [facility] [address] [place] [address] * (ABNORMAL) LIPID PANEL W REFLEX MEASURED LDL (12/17/2023 3:29 PM CDT) CHOLESTEROL, TOTAL 158 <200 mg/dL [employer] HDL CHOLESTEROL 43 > OR = 40 mg/dL [facility] TRIGLYCERIDES 185(H) <150 mg/dL [employer] LDL-CHOLESTEROL 87 mg/dL (calc) [employer] Comment: Reference range: <100 Desirable range <100 mg/dL for primary prevention; ?? <70 mg/dL for patients with CHD or diabetic patients with > or = 2 CHD risk factors. LDL-C is now calculated using the Apryl calculation, which is a validated novel method providing better accuracy than the Friedewald equation in the estimation of LDL-C. Romeo SS et al. ERIC. 2013;310(19): 7671-5777 (http://education.Qlue/faq/WOI980) CHOL/HDLC RATIO 3.7 <5.0 (calc) [employer]-W [employer] [facility] NON HDL CHOLESTEROL 115 <130 mg/dL (calc) [employer] Comment: For patients with diabetes plus 1 major ASCVD risk factor, treating to a non-HDL-C goal of <100 mg/dL (LDL-C of <70 mg/dL) is considered a therapeutic option. Blood BLOOD SPECIMEN / Unknown 12/17/2023 3:29 PM CDT 12/17/2023 3:29 PM CDT Courtney Munoz DO CHEMISTRY [employer] [facility] [address] [place] [address], [place] [facility] [address] [place] [address] * (ABNORMAL) BASIC METABOLIC PANEL (12/17/2023 3:29 PM CDT) GLUCOSE 100(H) 65 - 99 mg/dL [facility] [employer]oney Comment: ? Fasting reference interval For someone without known diabetes, a glucose value between 100 and 125 mg/dL is consistent with prediabetes and should be confirmed with a follow-up test. UREA NITROGEN (BUN) 19 7 - 25 mg/dL [facility] CREATININE 0.96 0.70 - 1.22 mg/dL [facility] EGFR 78 > OR = 60 mL/min/1. 73m2 [facility] BUN/CREATININE RATIO SEE NOTE: 6 - 22 (calc) [facility] Comment: ?? Not Reported: BUN and Creatinine are within ?? reference range. ? SODIUM 136 135 - 146 mmol/L [facility] POTASSIUM 4.7 3.5 - 5.3 mmol/L [facility] CHLORIDE 103 98 - 110 mmol/L [facility] CARBON DIOXIDE 23 20 - 32 mmol/L [facility] ELECTROLYTE BALANCE 10 7 - 17 mmol/L (calc) [facility] CALCIUM 9.9 8.6 - 10.3 mg/dL [facility] Blood BLOOD SPECIMEN / Unknown 12/17/2023 3:29 PM CDT 12/17/2023 3:29 PM CDT Courtney Munoz DO CHEMISTRY [facility] [address] [place] [address], [place] [facility] [address] [place] [address] * XR TOES 3 VIEWS LEFT (11/26/2023 4:25 PM CDT) Anatomical Region Laterality Modality TOES Computed Radiogr aphy 11/27/2023 1:38 PM CDT Impressions 11/27/2023 1:38 PM CDT Left great toe osteoarthritis. Dictated by Luly Bridges MD @ 11/27/2023 1:38:08 PM (Electronically Signed) Narrative 11/27/2023 1:38 PM CDT For Patients: ??As a result of the Cures Act, medical imaging exams and procedure reports are released immediately into your electronic medical record. ??You may view this report before your referring provider. ??If you have questions, please contact your health care provider. INDICATION: Toe pain COMPARISON: None. TECHNIQUE: Three views left 1st toe FINDINGS: No fracture. Suspect there may be some mild hallux valgus malalignment. Osteoarthritis of the MTP and IP joints. No erosions. Very minimal subchondral remodeling. Soft tissues are normal. No foreign body. Procedure Note Luly Bridges MD - 11/27/2023 For Patients: As a result of the Cures Act, medical imagingexams and procedure reports are released immediately into your electronicmedical record. You may view this report before your referring provider.If you have questions, please contact your health care provider. INDICATION: Toe pain COMPARISON: None. TECHNIQUE: Three views left 1st toe FINDINGS: No fracture. Suspect there may be some mild hallux valgus malalignment. Osteoarthritis of the MTP and IP joints. No erosions. Very minimal subchondral remodeling. Soft tissues are normal. No foreign body. IMPRESSION: Left great toe osteoarthritis. Dictated by Luly Bridges MD @ 11/27/2023 1:38:08 PM (Electronically Signed) Courtney Munoz DO GENERAL IMAGING * (ABNORMAL) URIC ACID (11/26/2023 4:10 PM CDT) URIC ACID 7.1(H) 3.4 - 7.0 mg/dL 11/27/2023 1:40 PM CDT [facility] Blood BLOOD SPECIMEN / Unknown Venipuncture / Unknown 11/26/2023 4:10 PM CDT 11/26/2023 4:10 PM CDT Courtney Munoz DO CHEMISTRY [facility] [address] [place] [address], * PLATELET COUNT (10/16/2023 4:22 PM CDT) PLATELET COUNT 185 140 - 440 thou/cu mm 10/16/2023 4:26 PM CDT [facility] MPV 9.3 6.5 - 11.0 fL 10/16/2023 4:26 PM CDT [facility] Blood BLOOD SPECIMEN / Unknown Venipuncture / Unknown 10/16/2023 4:22 PM CDT 10/16/2023 4:23 PM CDT Courtney Munoz DO HEMATOLOGY [facility] [address] [place] [address], [place] [phone] * WHITE BLOOD COUNT (10/16/2023 4:22 PM CDT) WHITE BLOOD COUNT 8.0 4.5 - 11.0 thou/cu mm 10/16/2023 4:26 PM CDT [facility] Blood BLOOD SPECIMEN / Unknown Venipuncture / Unknown 10/16/2023 4:22 PM CDT 10/16/2023 4:23 PM CDT Courtney Munoz DO HEMATOLOGY Performing Organization Address City/[facility] Co de Phone Number [facility] [address] [place] [address], [place] [phone] from Last 3 Months Advance Directives Documents on File Type Date Recorded Patient Welt Edge Rounder Expl anation Healthcare Directive 10/01/2018 1:39 PM [...] 11:30 AM 05/23/2016 10:53 PM Care Teams Classics Professor Relationship Specialty Start Date End Date Courtney Munoz DO [address] [place] [address] PCP - General Family Practice 10/09/20 Kelly Villegas AuD Audiology 11/11/11
--- OUTSIDE RECORDS SUMMARY | 2023-12-19 13:24 | XMS_ITS | Continuity of Care Document ---
Author Organization [facility] Address [address] [place] [address] Phone Care Team Providers Care Home Stager Name Role Phone Rosalie Hdez Unavailable Unavailable Procedures Procedure Date Office/outpatient visit,[facility] 2010 Advance Directives Directive Yes / No Effective Date File Name No Information Encounters Encounter Description Practice Location Reason(s) For Visit Diagnoses Date Provider Providers Copied on Encounter Office/outpat ient visit,[facility], [facility] [place] [facility], [address], [place], [address], [place] tel:[phone] [facility] No Information Kristy Wiggins. [facility], [address] [place] [address], [address], [place]. tel:[phone] Referring Provider: Chet Arana, [address], [address]. tel:[phone] Family History Family Member Type Diagnosis Age At Onset No Information Payers Payer name Insurance type Covered alliance party ID Authoriza tijuan carlos(s) [employer] CI [id number] Social History Type Description Quantity Date Captured [...]
== END 2023-12-19 14:40 | disposition home or self-care (01) ==
PROVIDERS: Emergency Provider Emergency Medicine Emergency Medical Services; PCP Student in an Organized Health Care Education/Training Program
DX: M54.31 Sciatica, right side (principal); R20.2 Paresthesia of skin
CPT/HCPCS: 36415; 70450; 70496; 70498; 80048; 82565; 84484; 85025; 93005; 94761; 99284; 99285; Q9967

== ENCOUNTER 2024-01-01 08:29 | Emergency (ER) | payer MEDICARE, SELFPAY ==
[2024-01-01 08:31] VITALS: BP 147/81; PULSE 82; RESP 18; TEMP 36.2; O2SAT 96; BMI 28.3
--- NOTE | 2024-01-01 09:18 | ED.GENADULT ---
HPI - General Adult General Chief complaint: Neuro Symptoms/Altered Deficit Stated complaint: RT sided numbness increasing, light headed, dizzy Time Seen by Provider: 01/01/24 09:47 History of Present Illness HPI narrative: patient has an appointment at 1045 at clinic. has been having some numbness sometimes and this am woken up with numbness on the right side of the face a round 0730. has been having some numbness in the right hand and leg comes and goes doing acupuncture which has helped. hx of lower back pain and hip on right side. has been having whoozy spills thinking was from Gabapentin and noted has not had Gabapentin yet and thinks maybe not related to medication. 83-year-old man presenting to the emergency department with concern of some intermittent numbness or more of a tingling on the right jaw that began this morning. He describes also some numbness that is intermittent for quite some time over his right hand and forearm and then his right calf. He has been having also intermittently would he would described as episodes of feeling ?woozy? which seem to be related to taking gabapentin for low back and right hip pain. These episodes seem to be occurring about an hour after gabapentin historically. What was alarming though today was that this tingling in his right lower face and this wooziness occurred independent of taking gabapentin. No chest pain or shortness of breath. No rashes. Seen here with unremarkable CT and CTA of head and neck on 12/19/23 Related Data Home Medications ?Medication ?Instructions ?Recorded ?Confirmed aspirin 81 mg chewable tablet 81 mg PO DAILY 11/25/21 01/01/24 (Aspirin Childrens) atorvastatin 20 mg tablet 20 mg PO DAILY 11/25/21 01/01/24 cholecalciferol (vitamin D3) 50 2,000 unit PO DAILY 11/25/21 01/01/24 mcg (2,000 unit) capsule ferrous sulfate 325 mg (65 mg 325 mg PO DAILY 11/25/21 01/01/24 iron) tablet,delayed release gabapentin 100 mg capsule 100 mg PO Q8H 11/25/21 01/01/24 metoprolol succinate 25 mg 25 mg PO DAILY 11/25/21 01/01/24 tablet,extended release 24 hr tamsulosin 0.4 mg capsule 0.4 mg PO Q24H 11/25/21 01/01/24 doxylamine succinate 25 mg tablet 25 mg PO QHS PRN 02/25/22 01/01/24 (Unisom (doxylamine)) melatonin 3 mg capsule 3 mg PO HS PRN 02/25/22 01/01/24 multivitamin 1 tab PO DAILY 02/25/22 01/01/24 sennosides 8.6 mg capsule (senna) 8.6 mg PO BID 02/25/22 01/01/24 Previous Rx's ?Medication ?Instructions ?Recorded triamcinolone acetonide 0.1 % 1 applic topical BID PRN 10/14/23 topical ointment dermatitis #30 grams celecoxib 200 mg capsule (Celebrex) 200 mg PO DAILY PRN pain #14 caps 11/09/23 Allergies Allergy/AdvReac Type Severity Reaction Status Date / Time codeine AdvReac Mild gi upset, Verified 01/01/24 08:37 nausea Review of Systems Status of ROS: Reports: 6 or more systems reviewed and unremarkable except as noted in History and below [facility] Medical History Cardiomyopathy ?I42.9 - Cardiomyopathy, unspecified (ICD-10) Radiculopathy of cervical spine ?M54.12 - Radiculopathy, cervical region (ICD-10) Plantar fasciitis ?M72.2 - Plantar fascial fibromatosis (ICD-10) Hypertension ?I10 - Essential (primary) hypertension (ICD-10) Kidney calculus ?N20.0 - Calculus of kidney (ICD-10) GERD (gastroesophageal reflux disease) ?K21.9 - Gastro-esophageal reflux disease without esophagitis (ICD-10) Chronic anticoagulation ?Z79.01 - snf (current) use of anticoagulants (ICD-10) Mitral valve disorder ?I05.9 - Rheumatic mitral valve disease, unspecified (ICD-10) 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 - Other specified bacterial diseases (ICD-10) Hyperplastic colon polyp ?K63.5 - Polyp of colon (ICD-10) Depressive disorder ?F32.A - Depression, unspecified (ICD-10) Bilateral hearing loss ?H91.93 - Unspecified hearing loss, bilateral (ICD-10) Anxiety state, unspecified ?F41.1 - Generalized anxiety disorder (ICD-10) Acute bacterial endocarditis ?I33.0 - Acute and subacute infective endocarditis (ICD-10) Surgical History Hx of colonoscopy ?Z98.890 - Other specified postprocedural states (ICD-10) Aortic valve replaced ?Z95.2 - Presence of prosthetic heart valve (ICD-10) S/P ureteral stent placement ?Z96.0 - Presence of urogenital implants (ICD-10) H/O arthroscopy of shoulder ?Z98.890 - Other specified postprocedural states (ICD-10) H/O hernia repair ?Z98.890 - Other specified postprocedural states (ICD-10) ?Z87.19 - Personal history of other diseases of the digestive system (ICD-10) Social History Smoking Status: Former smoker Do you use any of these nicotine containing products: None Second hand tobacco smoke exposure: No How often do you have a drink containing alcohol: 2-4 times a month Alcohol type: wine How many standard drinks containing alcohol do you have on a typical day: 1 or 2 How often do you have six or more drinks on one occasion: Never AUDIT-C Alcohol total score: 2 Non-prescribed substance use: denies use Caffeine: No service: No Exam Narrative: Exam Narrative: Very pleasant. NAD. Skin is warm and dry. No rashes appreciated. No sensory deficits appreciated. Full strength throughout moving all extremities without difficulty. Cranial nerves 2-12 intact. No oropharyngeal lesions. Dksgj-br-ravxw is brisk in intact. Heart in regular rate and rhythm with trace systolic murmur. No lower extremity edema. Is well-perfused. Const: Vital Signs, click to edit/add: Vital Signs - 24 hr 01/01/24 08:31 Temperature 97.1 F L Pulse Rate [Pulse Oximeter] 82 Respiratory Rate 18 Blood Pressure [Ri ght Upper Arm] 147/81 H Pulse Oximetry 96 Oxygen Delivery Me thod Room Air Documenting provider has reviewed patient's vital signs: yes Course Vital Signs Vital signs: Initial Vital Signs Temperature 97.1 F L 01/01/24 08:31 Temperature Source Temporal Artery Scan 01/01/24 08:31 Pulse Rate 82 01/01/24 08:31 Respiratory Rate 18 01/01/24 08:31 Blood Pressure 147/81 H 01/01/24 08:31 Blood Pressure Mean 103 01/01/24 08:31 Blood Pressure Position Sitting 01/01/24 08:31 Pulse Oximetry 96 01/01/24 08:31 Oxygen Delivery Method Room Air 01/01/24 08:31 Vital Signs Temperature 97.1 F L 01/01/24 08:31 Pulse Rate 82 01/01/24 08:31 Respiratory Rate 18 01/01/24 08:31 Blood Pressure 147/81 H 01/01/24 08:31 Pulse Oximetry 96 01/01/24 08:31 Oxygen Delivery Method Room Air 01/01/24 08:31 Temperature 97.1 F L 01/01/24 08:31 Pulse Rate 82 01/01/24 08:31 Respiratory Rate 18 01/01/24 08:31 Blood Pressure 147/81 H 01/01/24 08:31 Pulse Oximetry 96 01/01/24 08:31 Oxygen Delivery Method Room Air 01/01/24 08:31 Medical Decision Making MDM Narrative Medical decision making narrative: Relatively asymptomatic at this point. Not sure what to make of all of this. Reassuring is recent imaging. Does not appear to have onset of any new shingles like eruption at this time otherwise. MS? There is some mild valvular disease. He is not symptomatic orthostatically. Certainly could be ischemic neurovascular event. TIA? Only further imaging might be MRI. Did discuss this case with Neurology on-call and overall reassured but would also consider MRI. Unfortunately we are unable to do that given his pacemaker. Recommendations would otherwise be for consideration of outpatient MRI. Meanwhile double aspirin dosing. Mr. Olguin was asymptomatic about an hour and half after onset. See patient discharge plan for further discussion. Medical Records Medical records reviewed: Yes I reviewed the patient's medical records ECG Data Attestation: I personally reviewed and interpreted this ECG as follows: (Sinus rhythm first-degree AV block. PAC. Rate of 60. Similar to prior with fascicular block.) Discharge Plan Discharge Clinical Impression: Paresthesia Patient Disposition: Home, Self-Care Condition: Improved Additional Instructions: Do stay well-hydrated. Recommendations are to get an outpatient MRI of your brain but this would need to be done in a place that can manipulate your pacer. Probably [employer] or [employer]. Please discuss further with your primary care provider Other recommendation is to double your daily aspirin dosing Prescriptions: No Action triamcinolone acetonide 0.1 % ointment 1 applic topical BID PRN (Reason: dermatitis ) Qty: 30 0RF Unisom (doxylamine) 25 mg tablet 25 mg PO QHS PRN melatonin 3 mg capsule 3 mg PO HS PRN multivitamin Tablet 1 tab PO DAILY senna 8.6 mg capsule 8.6 mg PO BID celecoxib [Celebrex] 200 mg capsule 200 mg PO DAILY PRN (Reason: pain) Qty: 14 1RF atorvastatin 20 mg tablet 20 mg PO DAILY tamsulosin 0.4 mg capsule 0.4 mg PO Q24H Hold Instructions: Doctor's Order gabapentin 100 mg capsule 100 mg PO Q8H metoprolol succinate 25 mg tablet extended release 24 hr 25 mg PO DAILY aspirin [Aspirin Childrens] 81 mg tablet,chewable 81 mg PO DAILY cholecalciferol (vitamin D3) 50 mcg (2,000 unit) capsule 2,000 unit PO DAILY ferrous sulfate 325 mg (65 mg iron) tablet,delayed release (DR/EC) 325 mg PO DAILY Follow Up/Referrals: QUENTIN PATEL DO [Primary Care Provider] - Stand Alone Forms: [facility] Inst[facility]
--- OUTSIDE RECORDS SUMMARY | 2024-01-01 10:05 | XMS_ITS | Clinical Summary ---
Author Organization [facility] Address [place], [place] [address] Care Team Providers Care Floating Operator Name Role Phone Kelly Villegas Rudi Unavailable [phone] Courtney Munoz DO Primary Care Provider [phone] Allergies Active Allergy Reactions Criticality Noted Date [...] 12/17/19 24 Discontinue d(Reorder (E-cancel not sent)) gabapentin (NEURONTIN) 100 mg capsuleIndication s:Radiculopathy of [...] 07/02/2021 S/P AVR 06/19/2021 Overview (06/19/2021): Aortic Valve:[employer], Inspiris aortic valve, SZ: 25mm S/P MVR (mitral valve replacement) 06/19/2021 Overview (06/19/2021): Mitral Valve: [employer], Epic Plus, SZ: 31mm Infection due to [...] Encounters Date Type Department Care Team Description 12/19/2023 Orders Only [facility] Scanner 1 scan: (1-Ord) [facility], CT ANGIO NECK, 12/19/2023 12/19/2023 Orders Only [facility] Scanner 1 scan: (1-Ord) [facility], ANGIO HEAD, 12/19/2023 12/19/2023 Orders Only [facility] Scanner 1 scan: (1-Ord) [facility], CT HEAD/BRAIN WO CON, 12/19/2023 12/17/2023 2:30 PM CDT Office Visit [address] [place] [address] Courtney Munoz DO Medicare ANNUAL (subsequent) Visit (83 year old ); Hand Pain/problem (LEFT hand - skin pulled back from hitting his hand on the door ) 12/17/2023 Travel 11/28/2023 Nurse Triage [address] [address] Courtney Munoz DO Questions 11/26/2023 4:15 PM CDT Ancillary Procedure [address] [address] 11/26/2023 3:45 PM CDT Office Visit [address] [address] Courtney Munoz DO Follow Up (Rash in groin area ); Numbness (Rt hip and rt calf x 2 weeks ); Toe Pain/problem (Pain in left big toe ) 11/26/2023 Travel 10/29/2023 Nurse Triage [address] [address] Courtney Munoz DO Questions 10/27/2023 12:55 PM CDT Office Visit [address] [address] Latanya Guerrero PA Toe Pain/problem 10/27/2023 Travel 10/24/[address] [address] Courtney Munoz DO Refill Request (Gabapentin) 10/16/2023 3:45 PM CDT Office Visit [address] [address] Shaqra, Adei, DO Foot Pain/problem 10/16/2023 Travel from Last 3 Months Immunizations Name [...] 12/17/2023 2:43 PM CDT Plan of Treatment Upcoming Encounters Date Type Department Care Team (Late st Contact Info) Description 01/01/2024 10:35 AM CDT Office Visit [facility] [address] [place] [address] Courtney Munoz DO [address] [place] [address] Health Maintenance Due Date Last Done Comments [...] history exists Medical Devices Implanted Type Area Senior Cognos Developer Device Identifier Shelf Expiration Date Model / Serial / Lot Valve Mitral 31mm Epic Plus Porcine Tissue - [id number] Implanted:Qty: 1 on 06/19/2021 by Tito Mosher MD at [facility] Cv Implants N/A: Mitral Valve [facility] [employer] [facility] 02/11/2022 [id number] / [id number] / Valve Aortic 25mm Inspirus Resilia Tissue - [id number] Implanted:Qty: 1 on 06/19/2021 by Tito Mosher MD at [facility] Cv Implants N/A: Mitral Valve NIN [employer] Justin 01/30/2025 [id number] / [id number] / Stent Uret [id number] Contour - [id number] Implanted:Qty: 1 on 05/23/2016 by Liang Burger MD at [facility] Urology 12/18/2018 [id number] / / [id number] Procedures Procedure Name Priority Date/Time Associated Diagnosis Comments SCAN-CT INTERPRETATION 4 12:00 AM CDT SCAN-CT INTERPRETATION 4 12:00 AM CDT SCAN-CT INTERPRETATION 4 12:00 AM CDT PSA (TOTAL) ([facility]) Routine 12/17/2023 3 :29 PM CDT BPH with urinary obstruction Prostate [...] Petechiae from Last 3 Months Results * SCAN-CT INTERPRETATION (12/19/2023 12:00 AM CDT) Only the most recent of3 resultswithin the time period is included. Anatomical Region Laterality Modality Other Scanner OTHER * PSA (TOTAL) ([facility]) (12/17/2023 3:29 PM CDT) PSA, TOTAL 2.32 < OR = 4.00 ng/mL [facility] Comment: The total PSA value from [...] PM CDT Courtney Munoz DO SEND OUTS [employer] [facility] [address] [place] [address], [facility] [address] [place] [address] * (ABNORMAL) LIPID PANEL W REFLEX MEASURED LDL (12/17/2023 3:29 PM CDT) CHOLESTEROL, TOTAL 158 <200 mg/dL [facility] HDL CHOLESTEROL 43 > OR = 40 mg/dL [facility] TRIGLYCERIDES 185(H) <150 mg/dL [facility] LDL-CHOLESTEROL 87 mg/dL (calc) [facility] Comment: Reference range: <100 Desirable range <100 mg/dL for primary prevention; ?? <70 mg/dL for patients with CHD or diabetic patients with > or = 2 CHD risk factors. LDL-C is now calculated using the Romeo-David calculation, which is a validated novel method providing better accuracy than the Friedewald equation in the estimation of LDL-C. Romeo LICONA et al. ERIC. 2013;310(19): 5155-3277 (http://education.General Specific.Ze-gen/faq/SXB258) CHOL/HDLC RATIO 3.7 <5.0 (calc) [facility] NON HDL CHOLESTEROL 115 <130 mg/dL (calc) [facility] Comment: For patients with diabetes plus 1 major ASCVD risk factor, treating to a non-HDL-C goal of <100 mg/dL (LDL-C of <70 mg/dL) is considered a therapeutic option. Blood BLOOD SPECIMEN / Unknown 12/17/2023 3:29 PM CDT 12/17/2023 3:29 PM CDT Courtney Munoz DO CHEMISTRY [facility] [employer] [facility] [address] [place] [address], [facility] [address] [place] [address] * (ABNORMAL) BASIC METABOLIC PANEL (12/17/2023 3:29 PM CDT) Pathologist [facility] GLUCOSE 100(H) 65 - 99 mg/dL [facility] [employer] [facility] Comment: ? Fasting reference interval For someone [...] 135 - 146 mmol/L [facility] POTASSIUM 4.7 3.5 - 5.3 mmol/L [facility] CHLORIDE 103 98 - 110 mmol/L [facility] CARBON DIOXIDE 23 20 - 32 mmol/L [facility] ELECTROLYTE BALANCE 10 7 - 17 mmol/L (calc) [facility] CALCIUM 9.9 8.6 - 10.3 mg/dL [facility] Blood BLOOD SPECIMEN / Unknown 12/17/2023 3:29 PM CDT 12/17/2023 3:29 PM CDT Courtney Munoz DO CHEMISTRY [employer] [facility] [address] [place] [address], [facility] [address] [place] [address] * XR TOES 3 VIEWS LEFT (11/26/2023 [...] MD @ 11/27/2023 1:38:08 PM (Electronically Signed) Adelibertad Shaqra DO GENERAL IMAGING * (ABNORMAL) URIC ACID (11/26/2023 4:10 PM CDT) URIC ACID 7.1(H) 3.4 - 7.0 mg/dL 11/27/2023 1:40 PM CDT [facility] Blood BLOOD SPECIMEN / Unknown Venipuncture / Unknown 11/26/2023 4:10 PM CDT 11/26/2023 4:10 PM CDT [facility] [address] [place] [address], * PLATELET COUNT (10/16/2023 4:22 PM CDT) PLATELET COUNT 185 140 - 440 thou/cu mm 10/16/2023 4:26 PM CDT [facility] MPV 9.3 6.5 - 11.0 fL 10/16/2023 4:26 PM CDT [facility] Blood BLOOD SPECIMEN / Unknown Venipuncture / Unknown 10/16/2023 4:22 PM CDT 10/16/2023 4:23 PM CDT [facility] [address] [place] [address], [place] [phone] * WHITE BLOOD COUNT (10/16/2023 4:22 PM CDT) WHITE BLOOD COUNT 8.0 4.5 - 11.0 thou/cu mm 10/16/2023 4:26 PM CDT [facility] Blood BLOOD SPECIMEN / Unknown Venipuncture / Unknown 10/16/2023 4:22 PM CDT 10/16/2023 4:23 PM CDT Courtney Rosadora H[facility]GE HEMATOLOGY [facility] [address] [place] [address], [place] [phone] from Last 3 Months Advance Directives Documents on File Type Date Recorded Patient Professor Of Voice Expl anation Healthcare Directive 10/01/2018 1:39 PM [...] 11:30 AM 05/23/2016 10:53 PM Care Teams Floating Operator Relationship Specialty Start Date End Date Courtney Munoz DO [address] [place] [address] PCP - General Family Practice 10/09/20 Kelly Villegas AuD Audiology 11/11/11
--- OUTSIDE RECORDS SUMMARY | 2024-01-01 10:05 | XMS_ITS | Continuity of Care Document ---
Author Organization [facility] Address [address] [place] [address] Phone Care Team Providers Care Commercial Sales Specialist Name Role Phone Rosalie Hdez Unavailable Unavailable Procedures Procedure Date Office/outpatient visit,[facility] 2010 Advance Directives Directive Yes / No Effective Date File Name No Information Encounters Encounter Description Practice Location Reason(s) For Visit Diagnoses Date Provider Providers Copied on Encounter Office/outpat ient visit,[facility] [facility], [address], [place], [address], [place] tel:[phone] [facility] No Information Kristy Wiggins. [facility], [address] [place] [address], [address], [place]. tel:[phone] Referring Provider: Chet Arana, [address], [address]. tel:[phone] Family History Family Member Type Diagnosis Age At Onset No Information Payers Payer name Insurance type Covered democrat ID Authoriza tijuan carlos(s) [employer] Medicare CI [id number] Social History Type Description Quantity Date Captured Comments Sex Male Smoking Status No Information Vital Signs Date / Time: Height Weight BMI Pulse Rate Blood Pressure Temperature Respiratory Rate Body Surface Area Head Circumference Head Circ. Percentile Wt./Jnoo. Percentile BMI percentile Pulse Ox Inhaled Ox [...]
== END 2024-01-01 13:28 | disposition home or self-care (01) ==
PROVIDERS: Emergency Provider Family Medicine; PCP Student in an Organized Health Care Education/Training Program
DX: R20.2 Paresthesia of skin (principal)
CPT/HCPCS: 93005; 99283; 99284

== ENCOUNTER 2024-01-12 19:48 | Emergency (ER) | payer MEDICARE, SELFPAY ==
[2024-01-12 19:55] VITALS: BP 157/89; PULSE 81; RESP 20; TEMP 36.5; O2SAT 96; BMI 28.3
--- NOTE | 2024-01-12 21:20 | ED.GENADULT ---
HPI - General Adult General Date Seen: 01/12/24 Chief complaint: Neuro Symptoms/Altered Deficit Stated complaint: facial numbness/tingling and also leg Time Seen by Provider: 01/12/24 21:19 History of Present Illness HPI narrative: 83-year-old gentleman with past medical history of hypertension, GERD, mitral valve replacement, aortic valve replacement, history of endocarditis, depression, hearing loss, anxiety, , hyperlipidemia, cervical radiculopathy, cardiomyopathy. presenting to the ER today with concern for abnormal sensation affecting his right cheek around his mouth, right hand, and right leg He is here with his friend who brought him in. He has been having symptoms of intermittent tingling and numbness affecting his right posterior calf, sometimes his right volar forearm and hand, and often his right cheek next to his mouth. These have been happening with fairly regular symptoms almost every evening for the past several weeks. Per medical record: According to [facility] care link he was seen by his primary care provider, Dr. Valencia on January 03. He was started on Plavix for possible TIAs. The patient is an 83-year-old male who went to the emergency room in [place] on 12/19/23 and 12/31/2022 for episodes of numbness. ? He first went to the ER for numbness in his right leg and feeling like the leg would give out along with right-sided facial numbness. He had an evaluation including blood work and a CT angiogram of his head and neck. All was unremarkable and he was recommended to follow-up with his PCP. He had an additional episode of right sided facial numbness, right arm numbness, and dizziness on 12/31 and went back to the emergency room. He did not have any imaging done at that time. He was recommended to get an MRI as an outpatient but this would need to be done at a specialty center because of his pacemaker. He was recommended again to follow-up as an outpatient. ? He has no history of a stroke. He has never been diagnosed with a TIA. ? The numbness in his jaw lasted for a couple of hours, and the numbness in his hand is intermittent, lasting about 10 minutes each time. He experiences this numbness at least once a day, but it resolves on its own. This started about 3 to 4 weeks ago. He reports no weakness in his arm. He has not been diagnosed with atrial fibrillation or any kind of irregular heartbeat. His last echocardiogram was in 03/2023. He has a history of mitral and aortic valve replacement. He is currently taking metoprolol and tamsulosin, which he takes in the evening before bed. He is also taking gabapentin 100 mg three times a day for his back and hip joint pain. The patient's symptoms, including numbness in the jaw and transient numbness in the arm, suggest a possible transient ischemic attack (TIA). A CT scan did not reveal any signs of a stroke. An angiogram of his head and neck conducted in the emergency room did not show any significant stenosis or blockages of the blood vessels. A ZIO patch heart monitor will be used to assess his heart rhythm for potential atrial fibrillation or other irregular heartbeats. A repeat echocardiogram and a brain MRI will also be arranged. His medication will be switched from aspirin to Plavix. Any changes in symptoms should be reported immediately. In case of acute neurologic changes such as sudden onset weakness, difficulty speaking, or vision change, he should seek immediate medical attention at the emergency room. He will schedule follow-up with his PCP in 1 month he was seen here in the ER 11 days ago on December 31 for numbness on the right side of his face as well as intermittent right hand and leg numbness. Ear also was feeling ?woozy. ?. Per doctor's notes it sounds like his was the spells are related to taking gabapentin. Consideration for TIA versus MS. Needs an MRI but cannot have it here in [place] because he has a pacemaker. Consultation with Stroke Neurology and recommended increasing his aspirin dose. Was also seen in the ER on 12/19/2023 for a brief episode of right-sided numbness. He was walking up some stairs and had numbness of his right leg with weakness on the right leg. and had CT scan of his brain and CT angiogram of his head neck that were normal. His episode tonight happened after dinner. He felt a little bit lightheaded before dinner but felt better after eating. He went to lay down and rest. While resting he started to feel little bit of tingling in his right calf. Eventually he got up from his resting went down to the kitchen to clean it up. While walking down the steps he noticed that his right calf was more numb than tingly and also developed a little bit of numbness in his right hand and forearm and right cheek. Along with this he had a warm sensation in the back of his neck. No other symptoms. No chest pain. No palpitations. No lightheadedness. No nausea. No blurry vision. No headache. No abdominal pain. No back pain. No left-sided numbness. He did not have any weakness, just numbness and paresthesias. Related Data Home Medications ?Medication ?Instructions ?Recorded ?Confirmed aspirin 81 mg chewable tablet 81 mg PO DAILY 11/25/21 01/01/24 (Aspirin Childrens) atorvastatin 20 mg tablet 20 mg PO DAILY 11/25/21 01/12/24 cholecalciferol (vitamin D3) 50 2,000 unit PO DAILY 11/25/21 01/01/24 mcg (2,000 unit) capsule ferrous sulfate 325 mg (65 mg 325 mg PO DAILY 11/25/21 01/12/24 iron) tablet,delayed release gabapentin 100 mg capsule 100 mg PO Q8H 11/25/21 01/12/24 metoprolol succinate 25 mg 25 mg PO DAILY 11/25/21 01/12/24 tablet,extended release 24 hr tamsulosin 0.4 mg capsule 0.4 mg PO Q24H 11/25/21 01/12/24 doxylamine succinate 25 mg tablet 25 mg PO QHS PRN 02/25/22 01/01/24 (Unisom (doxylamine)) melatonin 3 mg capsule 3 mg PO HS PRN 02/25/22 01/01/24 multivitamin 1 tab PO DAILY 02/25/22 01/12/24 sennosides 8.6 mg capsule (senna) 8.6 mg PO BID 02/25/22 01/01/24 clopidogrel 75 mg tablet 75 mg PO DAILY 01/12/24 01/12/24 Previous Rx's ?Medication ?Instructions ?Recorded triamcinolone acetonide 0.1 % 1 applic topical BID PRN 10/14/23 topical ointment dermatitis #30 grams celecoxib 200 mg capsule (Celebrex) 200 mg PO DAILY PRN pain #14 caps 11/09/23 Allergies Allergy/AdvReac Type Severity Reaction Status Date / Time codeine AdvReac Mild gi upset, Verified 01/01/24 08:37 nausea [facility] Medical History Cardiomyopathy ?I42.9 - Cardiomyopathy, unspecified (ICD-10) Radiculopathy of cervical spine ?M54.12 - Radiculopathy, cervical region (ICD-10) Plantar fasciitis ?M72.2 - Plantar fascial fibromatosis (ICD-10) Hypertension ?I10 - Essential (primary) hypertension (ICD-10) Kidney calculus ?N20.0 - Calculus of kidney (ICD-10) GERD (gastroesophageal reflux disease) ?K21.9 - Gastro-esophageal reflux disease without esophagitis (ICD-10) Chronic anticoagulation ?Z79.01 - custodial (current) use of anticoagulants (ICD-10) Mitral valve disorder ?I05.9 - Rheumatic mitral valve disease, unspecified (ICD-10) 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 - Other specified bacterial diseases (ICD-10) Hyperplastic colon polyp ?K63.5 - Polyp of colon (ICD-10) Depressive disorder ?F32.A - Depression, unspecified (ICD-10) Bilateral hearing loss ?H91.93 - Unspecified hearing loss, bilateral (ICD-10) Anxiety state, unspecified ?F41.1 - Generalized anxiety disorder (ICD-10) Acute bacterial endocarditis ?I33.0 - Acute and subacute infective endocarditis (ICD-10) Surgical History Hx of colonoscopy ?Z98.890 - Other specified postprocedural states (ICD-10) Aortic valve replaced ?Z95.2 - Presence of prosthetic heart valve (ICD-10) S/P ureteral stent placement ?Z96.0 - Presence of urogenital implants (ICD-10) H/O arthroscopy of shoulder ?Z98.890 - Other specified postprocedural states (ICD-10) H/O hernia repair ?Z98.890 - Other specified postprocedural states (ICD-10) ?Z87.19 - Personal history of other diseases of the digestive system (ICD-10) Social History Smoking Status: Former smoker Do you use any of these nicotine containing products: None Second hand tobacco smoke exposure: No How often do you have a drink containing alcohol: 2-4 times a month Alcohol type: wine How many standard drinks containing alcohol do you have on a typical day: 1 or 2 How often do you have six or more drinks on one occasion: Never AUDIT-C Alcohol total score: 2 Non-prescribed substance use: denies use Caffeine: No service: No Exam Narrative: Exam Narrative: Constitutional: Appears well-developed and well-nourished. Alert. Conversant. Non toxic. HENT: Head: Atraumatic. Nose: Nose normal. Mouth/Throat: Oral mucosa is clear and moist. no trismus. Pharynx normal. Tonsils symmetric. No tonsillar enlargement, erythema, or exudate. Eyes: Conjunctivae normal. EOM normal. Pupils equal, round, and reactive to light. No scleral icterus. Neck: Normal range of motion. Neck supple. No tracheal deviation present. Cardiovascular: Normal rate, regular rhythm. No gallop. No friction rub. No murmur heard. Symmetric radial artery pulses Pulmonary/Chest: Effort normal. No stridor. No respiratory distress. No wheezes. No rales. No rhonchi . No tenderness. Abdominal: Soft. Bowel sounds normal. No distension. No mass. No tenderness. No rebound. No guarding. Musculoskeletal: RUE: Normal range of motion. No tenderness. No deformity LUE: Normal range of motion. No tenderness. No deformity RLE: Normal range of motion. No edema. No tenderness. No deformity LLE: Normal range of motion. No edema. No tenderness. No deformity Neurological: Mental status normal. Attention normal. Alert and oriented x3. GCS 15. Memory normal. Speech fluent. Cognition normal. Cranial Nerves intact II-XII except I did not formally test gag or visual acuity. EOMI. Palate elevates symmetrically and tongue protrudes in the midline. Strength: 5/5 trapezius on the right and left 5/5 deltoid on the right and left 5/5 biceps on the right and left 5/5 triceps on the right and left 5/5 shine worker on the right and left 5/5 thumb opposition on the right and left 5/5 finger abduction on the right and left 5/5 hip flexors (L3) on the right and left 5/5 quadriceps (L4) on the right and left 5/5 tibialis anterior on the right and left 5/5 EHL (L5) on the right and left 5/5 gastrocnemius (S1) on the right and left 5/5 hamstring on the right and left Sensation intact to light touch in both upper extremities (C4-T1) Sensation intact to light touch in Both lower extremities (L4-S1). Finger to nose and coordination normal. Gait normal. Skin: Skin is warm and dry. No rash noted. No pallor. Normal capillary refill. Psychiatric: Normal mood. Endorses some anxiety about the symptoms and is worried that they might get worse tomorrow. Const: Vital Signs, click to edit/add: Vital Signs - 24 hr 01/12/24 19:55 01/12/24 22:19 01/12/24 22:23 Temperature 97.7 F 97.7 F 97.7 F Pulse Rate [Pulse Oximeter] 81 85 85 Respiratory Rate 20 20 20 Blood Pressure [Ri ght Upper Arm] 157/89 H 135/74 135/74 Pulse Oximetry 96 96 Oxygen Delivery Me thod Room Air Room Air Course Vital Signs Vital signs: Initial Vital Signs Temperature 97.7 F 01/12/24 19:55 Temperature Source Temporal Artery Scan 01/12/24 19:55 Pulse Rate 81 01/12/24 19:55 Respiratory Rate 20 01/12/24 19:55 Blood Pressure 157/89 H 01/12/24 19:55 Blood Pressure Mean 111 H 01/12/24 19:55 Pulse Oximetry 96 01/12/24 19:55 Oxygen Delivery Method Room Air 01/12/24 19:55 Vital Signs Temperature 97.7 F 01/12/24 19:55 Pulse Rate 81 01/12/24 19:55 Respiratory Rate 20 01/12/24 19:55 Blood Pressure 157/89 H 01/12/24 19:55 Pulse Oximetry 96 01/12/24 19:55 Oxygen Delivery Method Room Air 01/12/24 19:55 Temperature 97.7 F 01/12/24 22:23 Pulse Rate 85 01/12/24 22:23 Respiratory Rate 20 01/12/24 22:23 Blood Pressure 135/74 01/12/24 22:23 Pulse Oximetry 96 01/12/24 22:19 Oxygen Delivery Method Room Air 01/12/24 22:19 Medical Decision Making MDM Narrative Medical decision making narrative: Pleasant 83-year-old gentleman returning to the ER today with an episode of paresthesias this evening. He reports that he gets episodes of paresthesias every evening, typically in his right posterior calf and off and also in his right forearm and palm and sometimes also in his right face. Tonight he had another episode of paresthesias that was a bit more intense than his normal evening paresthesias and was associated with a warm feeling in the back of his head neck. All the symptoms have now resolved he is back to normal. No ongoing neurologic symptoms at this point. He has had fairly significant workup so far, as noted in the HPI but still needs to have an MRI. This cannot be obtained here in [facility] because he has a pacemaker and will need to have it reprogrammed after imaging. This is set up to be done in the outpatient setting at [facility] but not until February. He had previously been on aspirin but last week was changed from aspirin to Plavix by his primary care provider. I discussed this patient's symptoms with the [facility] Stroke neurologist. He is not having any ongoing symptoms here in the ER tonight to suggest an active acute stroke. At this point we do not think he needs repeat CT scan of his brain or CT angio of his head and neck. Given the fact that they tend to occur every evening for the past several weeks, would be a bit of an atypical pattern for TIAs. However cannot be definitively ruled out at this point. Stroke Neurology does think he needs an MRI put it is appropriate for it to be arranged in the outpatient setting. They will contact the imaging team at [facility] and have them ?move up? the patient's MRI. They will contact the patient by phone tomorrow to arrange the new MRI time. The differential might also include MS, other neurologic symptoms. He is not having any palpitations or chest pain or other symptoms to suggest ACS or arrhythmia. At this point I would think he needs EKG, laboratory workup , or admission for cardiac monitoring. Discussed the plan with this patient and his friend. They were in agreement and very pleased or able to move up his outpatient MRI. He will continue where his outpatient Holter monitor and follow-up with primary care to get the results of the Holter and his echo. Return precautions reviewed. Questions answered to the best my ability. Discharge Plan Discharge Clinical Impression: Paresthesia Patient Disposition: Home, Self-Care Condition: Stable Instructions: Paresthesia (ED) Additional Instructions: As we discussed, please come back to the ER right away if you have any new or worsening symptoms or any concerns. You should receive a phone call from the neurologist and MRI team at [facility] tomorrow or the next day to move up your brain MRI. Please follow-up with your regular doctor the [facility] within the next 2-4 days for recheck and to find out the results of your echocardiogram. Also follow-up with your doctor for the monitoring specialist (Zio patch). Continue on your current meds for now. Prescriptions: No Action triamcinolone acetonide 0.1 % ointment 1 applic topical BID PRN (Reason: dermatitis ) Qty: 30 0RF Unisom (doxylamine) 25 mg tablet 25 mg PO QHS PRN melatonin 3 mg capsule 3 mg PO HS PRN multivitamin Tablet 1 tab PO DAILY senna 8.6 mg capsule 8.6 mg PO BID celecoxib [Celebrex] 200 mg capsule 200 mg PO DAILY PRN (Reason: pain) Qty: 14 1RF atorvastatin 20 mg tablet 20 mg PO DAILY tamsulosin 0.4 mg capsule 0.4 mg PO Q24H Hold Instructions: Doctor's Order gabapentin 100 mg capsule 100 mg PO Q8H metoprolol succinate 25 mg tablet extended release 24 hr 25 mg PO DAILY aspirin [Aspirin Childrens] 81 mg tablet,chewable 81 mg PO DAILY cholecalciferol (vitamin D3) 50 mcg (2,000 unit) capsule 2,000 unit PO DAILY ferrous sulfate 325 mg (65 mg iron) tablet,delayed release (DR/EC) 325 mg PO DAILY clopidogrel 75 mg tablet 75 mg PO DAILY Follow Up/Referrals: QUENTIN PATEL DO [Primary Care Provider] - Stand Alone Forms: [employer] Info Instructions
--- OUTSIDE RECORDS SUMMARY | 2024-01-12 22:04 | XMS_ITS | Clinical Summary ---
Author Organization [facility] Address [place], [place] [address] Care Team Providers Care Content Strategist Name Role Phone Kelly Villegas Rudi Unavailable [phone] Courtney Munoz DO Primary Care Provider [phone] Allergies Active Allergy Reactions Criticality Noted Date [...] acetaminophen dose: 4000mg in 24 hrs. 0 06/27/2021 Active famotidine (PEPCID) 20 mg tabletIndications :Gastroesophageal reflux disease with esophagitis, unspecified whether hemorrhage Take 1 Tablet (20 mg) by mouth two times daily. As needed. 180 Tablet 3 04/14/2022 Active ferrous sulfate 325 mg delayed release tabletIndications :Microcytic anemia TAKE ONE TABLET BY MOUTH EVERY DAY WITH A MEAL 90 Tablet 2 04/24/2023 Active cholecalciferol (VITAMIN D3) 2,000 unit capsuleIndication s:Vitamin D deficiency Take 1 Capsule (2,000 units) by mouth once daily. 90 Capsule 2 07/31/2023 Active atorvastatin (LIPITOR) 20 mg tabletIndications :Disorder of lipoid metabolism Take 1 Tablet (20 mg) by mouth once daily. 90 Tablet 3 12/17/2023 Active gabapentin (NEURONTIN) 100 mg capsuleIndication s:Radiculopathy of cervical spine,Radicular low back pain Take 1 Capsule (100 mg) by mouth three times daily. 270 Capsule 3 12/17/2023 Active metoprolol succinate (TOPROL XL) 25 mg Sustained-Release tabletIndications :S/P MVR (mitral valve replacement),Card iomyopathy, unspecified type (HC) Take 1 Tablet (25 mg) by mouth once daily. 90 Tablet 3 12/17/2023 Active tamsulosin (FLOMAX) 0.4 mg capsuleIndication s:BPH with urinary obstruction Take 1 Capsule (0.4 mg) by mouth at bedtime. 90 Capsule 3 12/17/2023 Active clopidogreL (PLAVIX) 75 mg tabletIndications :TIA (transient ischemic attack) Take 1 Tablet (75 mg) by mouth once daily in the morning. 90 Tablet 3 01/04/2024 Active aspirin chewable 81 mg chewable tabletIndications :Subacute bacterial endocarditis Chew 1 Tablet (81 mg) by mouth once daily with a meal. 180 Tablet 2 09/12/2021 01/04/20 24 Discontinu ed(*Medica tion adjustment ) tamsulosin (FLOMAX) 0.4 mg capsuleIndication s:BPH with urinary obstruction TAKE ONE CAPSULE BY MOUTH EVERY EVENING 90 Capsule 3 06/27/2023 12/17/19 24 Discontinu ed(Reorder (E-cancel not sent)) metoprolol succinate (TOPROL XL) 25 mg Sustained-Release tabletIndications :S/P MVR (mitral valve replacement),Card iomyopathy, unspecified type (HC) TAKE ONE TABLET BY MOUTH ONCE DAILY 90 Tablet 1 07/08/2023 12/17/19 24 Discontinu ed(Reorder (E-cancel not sent)) atorvastatin (LIPITOR) 20 mg tabletIndications :Disorder of lipoid metabolism TAKE ONE TABLET BY MOUTH EVERY DAY 90 Tablet 2 09/20/2023 12/17/19 24 Discontinu ed(Reorder (E-cancel not sent)) gabapentin (NEURONTIN) 100 mg capsuleIndication s:Radiculopathy of cervical spine,Radicular low back pain Take 1 Capsule (100 mg) by mouth three times daily. 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 History of bacterial endocarditis 01/28/2022 Cardiomyopathy 07/02/2021 S/P AVR 06/19/2021 Overview (06/19/2021): Aortic Valve:Dixon Lifesciences, Inspiris aortic valve, SZ: 25mm S/P MVR (mitral valve replacement) 06/19/2021 Overview (06/19/2021): Mitral Valve: Dwyer, Epic Plus, SZ: 31mm Infection due to [...] Encounters Date Type Department Care Team Description 01/12/2024 8:00 AM CDT Ancillary Procedure [facility] at [address] [address] Arrived 01/12/2024 Travel 01/04/2024 12:35 PM CDT Office Visit [facility] [place] [address] [address] Leti Bazan MD ER Follow up (Needing and MRI /Talk about medication) 01/04/2024 Telephone [facility] [address] [place] [address] Leti Bazan MD Medication Management 01/04/2024 Telephone [facility] [place] [address] [place] [address] Luisa Milan, ANCELMO Device Check (MRI) 01/04/2024 Travel 01/01/2024 Orders Only [facility] Scanner 1 scan: (1-Ord) ABNORMAL ECG, 01/01/2024 01/01/2024 Orders Only [facility] Scanner 1 scan: (1-Ord) ABNORMAL ECG, 01/01/2024 12/19/2023 Orders Only [facility] Scanner 1 scan: (1-Ord) [facility], CT ANGIO NECK, 12/19/2023 12/19/2023 Orders Only [facility] Scanner 1 scan: (1-Ord) [place], ANGIO HEAD, 12/19/2023 12/19/2023 Orders Only [facility] Scanner 1 scan: (1-Ord) [facility], CT HEAD/BRAIN WO CON, 12/19/2023 12/17/2023 2:30 PM CDT Office Visit [facility] [place] [address] Courtney Munoz DO Medicare ANNUAL (subsequent) Visit (83 year old ); Hand Pain/problem (LEFT hand - skin pulled back from hitting his hand on the door ) 12/17/2023 Travel 11/28/2023 Nurse Triage [facility] [place] [address] Courtney Munoz DO Questions 11/26/2023 4:15 PM CDT Ancillary Procedure [facility] [address] 11/26/2023 3:45 PM CDT Office Visit [facility] [place] [address] Courtney Munoz DO Follow Up (Rash in groin area ); Numbness (Rt hip and rt calf x 2 weeks ); Toe Pain/problem (Pain in left big toe ) 11/26/2023 Travel 10/29/2023 Nurse Triage [facility] [address] [place] [address] Courtney Munoz DO Questions 10/27/2023 12:55 PM CDT Office Visit [facility] [address] [place] [address] Latanya Guerrero PA Toe Pain/problem 10/27/2023 Travel 10/24/2023 Refill [facility] [address] [place] [address] Courtney Munoz DO Refill Request (Gabapentin) 10/16/2023 3:45 PM CDT Office Visit [facility] [address] [place] [address] Courtney Munoz DO Foot Pain/problem 10/16/2023 Travel from Last [...] file 12/17/2023 Food Insecurity Answer Date Recorded Do you worry your food will run out before you are able to buy more? 1 12/17/2023 Transportation Needs Answer Date Record ed Lack of Transportation (Medical) 1 12/17/2023 Housing Stability Answer Date Recorded What is your housing situation today? 1 12/17/2023 Sex and Gender Information Value Date Recorded Sex Assigned at Not on file Gender Identity Not on file Sexual Orientation Not on file Obstetrics History Last Filed Vital Signs Vital Sign Reading Time Taken Comments Blood Pressure 132/73 01/04/2024 12:38 PM CDT Pulse 65 01/04/2024 12:38 PM CDT Temperature 36.5 ??C (97.7 ??F) 11/26/2023 3:42 PM CD T Respiratory Rate 16 05/31/2023 11:1 9 AM CDT Oxygen Saturation 97% 01/04/2024 12: 38 PM CDT Inhaled Oxygen Concentration - - Weight 95.6 kg (210 lb 11.2 oz) 024 12:38 PM CDT Height 177.8 cm (5' 10) 12/17/2023 2:43 PM CDT Body Mass Index 30.23 12/17/2023 2:43 PM CDT Plan of Treatment Upcoming Encounters Date Type Department Care Team (Late st Contact Info) Description 03/01/2024 9:30 AM SALVAGE DIVER Appointment [facility] EMG/EEG/EP [address] [facility] [address] [place] [address] Kaci Garay MD [address] [facility] [address] [place] [address] 03/01/2024 11:00 AM SALVAGE DIVER Appointment [facility] [address] [place] [address] 03/01/2024 11:00 AM SALVAGE DIVER Appointment [facility] Pacemaker MRI/CT [address] [place] [address] 03/04/2024 10:35 AM SALVAGE DIVER Office Visit [facility] [address] [place] [address] Courtney Munoz DO [address] [place] [address] Health Maintenance Due Date Last Done Comments [...] history exists Medical Devices Implanted Type Area Pacs Administrator Device Identifier Shelf Expiration Date Model / Serial / Lot Valve Mitral 31mm Epic Plus Porcine Tissue - [id number] Implanted:Qty: 1 on 06/19/2021 by Tito Mosher MD at [facility] Implants N/A: Mitral Valve [facility] 02/11/2022 [id number] / [id number] / Valve Aortic 25mm Inspirus Resilia Tissue - [id number] Implanted:Qty: 1 on 06/19/2021 by Tito Mosher MD at [facility] Implants N/A: Mitral Valve Dixon Lifesciences Justin 01/30/2025 [id number] / [id number] / Stent Uret [id number] Contour - [id number] Implanted:Qty: 1 on 05/23/2016 by Liang Burger MD at [facility] Ureter [facility] 12/18/2018 [id number] / / [id number] Procedures Procedure Name Priority Date/Time Associated Diagnosis Comments ECHO TTE COMPLETE WO CONTRAST Routine 01/12/2024 8:40 AM CDT TIA (transient ischemic attack) SCAN-ELECTROCARDIOGRAM EKG 01/01/2024 12:00 AM CDT SCAN-ELECTROCARDIOGRAM EKG 01/01/2024 12:00 AM CDT SCAN-CT INTERPRETATION 4 12:00 [...] Petechiae from Last 3 Months Results * ECHO TTE COMPLETE WO CONTRAST (01/12/2024 8:40 AM CDT) AORTIC VALVE MEAN PG 11 mmHg EJECTION FRACTION 48 % PEAK TR VELOCITY 2.5 m/s LVEDD 4.6 cm EJECTION FRACTION 55 - 60% Anatomical Region Laterality Modality Ultrasound 01/12/2024 8:05 AM CDT Narrative 01/12/2024 9:07 AM CDT ECHOCARDIOGRAM NEGRO OLGUIN ? Accession#: ?? [id number] : ?1940 83 years Study Date: ?? 01/12/2024 8:05:30 AM Gender: M ?BP: ? 143/74 mmHg Height: 178.00 cm ?BSA: ?2.13 m? ? ? Weight: 95.00 kg ? Tech: ? MBF ? Referring MD: LETI BAZAN Site: ? [facility] Reading Location: Mobile OP Patient Location: Outpatient. Procedure: 2D, Color Doppler and Spectral Doppler. Indication for study: TIA (transient ischemic attack) Cardiac Rhythm: Regular and with premature ventricular contractions.Study quality: Fair. Final Impressions: 1. Normal LV size, moderately increased wall thickness, estimated EF of 55 - 60%. 2. Mild RV enlargement, mildly reduced systolic function. 3. S/P 25 mm Epic Plus bioprosthetic MVR, MG 7 mmHg @ HR 72 bpm. 4. S/P 25 mm Inspiris bioprosthetic AVR, MG 11 mmHg. 5. The inferior vena cava is dilated, respiratory size variation greater than 50%. Comparison Compared to prior exam of 04/16/2023, there has been no significant change. Chamber Sizes and Function Normal left ventricular size, moderately increased wall thickness, normal global systolic function with an estimated EF of 55 - 60%. No resting regional wall motion abnormality visualized. Left atrial size is normal. Right ventricular cavity size is mildly enlarged, global systolic RV function is mildly reduced. RV wall thickness is normal. The right atrium is normal. Right atrial volume index is 24 ml/m? ? ?. Right atrial area is 16 cm? ? ?. The pulmonary artery is of normal size and origin. The sinus of Valsalva is normal sized. The ascending aorta is normal sized. Valves, RV Pressures and Diastolic Function The aortic valve is functioning 25 mm Inspiris bioprosthesis replacement, no stenosis and no regurgitation. The mitral valve is Biocor/Epic bioprosthesis replacement, no mitral regurgitation. Indeterminate pattern of LV diastolic filling. The tricuspid valve is normal in structure. Tricuspid regurgitation is mild regurgitation. The tricuspid regurgitant velocity is 2.5 m/s, the estimated right ventricular systolic pressure is 25 mmHg plus right atrial pressure. The pulmonic valve is normal. Trace pulmonary regurgitation. Masses, Effusion, Shunts There is no pericardial effusion. The inferior vena cava is dilated, respiratory size variation greater than 50%. No left to right shunting was detected by limited color flow Doppler interrogation of the interatrial septum. MEASUREMENTS AND CALCULATIONS 2-D Measurements and LV Function: LVID (d) 4.6 cm LV FS% (2D) ?? 29 % LVID (s) 3.3 cm LVOT diameter 2.0 cm IVS (d) ??1.3 cm HR ?74 bpm LVPW (d) 1.2 cm LA Vol index ??26 ml/m2 Ao Sinus 3.4 cm RA Vol index ??24 ml/m2 Asc Ao ?? 4.0 cm RA area ? 16 cm?RV Max 4C (d) 5.6 cm Diastology: Mitral E Peak 1.2 m/s A Peak 1.9 m/s E/A ?0.6 DT ? 301 msec Aortic Valve: Vmax ? 2.2 m/s ??BUNNY (V) ?? 2.20 cm? ? ? VTI ?0.47 m ?? BUNNY (I) ?? 1.94 cm? ? ? LVOT V max 1.5 m/s ??Max PG ?19 mmHg LVOT VTI ?? 0.29 m ?? Mean PG ?? 11 mmHg SV ? 91 ml ?Dim Index 0.61 SV index ?? 43 ml/m? ? ? CO ?6.8 l/min ?CI ?3.2 l/min/m? ? ? Mitral Valve: MVA ? 2.5 cm? ? ? MR TVI 0.49 m MV P 1/2 ??87 msec MV Mean G 7 mmHg MV VTI ?0.45 m Tricuspid Valve and estimated PA pressures: TR Vmax 2.5 m/s TAPSE 1.3 cm TR maxG 25 mmHg . This study was interpreted by an [facility] accredited facility. ??Final ?? Procedure Note Tai Gomes MD - 01/12/2024 ECHOCARDIOGRAM NEGRO OLGUIN : 1940 83 years Study Date: 01/12/2024 8:05:30 AM Gender: M BP: 143/74 mmHg Height: 178.00 cm BSA: 2.13 m? ? ? Weight: 95.00 kg Tech: [facility] Referring MD: LETI BAZAN Site: [facility] Reading Location: Mobile OP Patient Location: Outpatient. Procedure: 2D, Color Doppler and Spectral Doppler. Indication for study: TIA (transient ischemic attack) Cardiac Rhythm: Regular and with premature ventricular contractions.Studyquality: Fair. Final Impressions: 1. Normal LV size, moderately increased wall thickness, estimated EF of55 - 60%. 2. Mild RV enlargement, mildly reduced systolic function. 3. S/P 25 mm Epic Plus bioprosthetic MVR, MG 7 mmHg @ HR 72 bpm. 4. S/P 25 mm Inspiris bioprosthetic AVR, MG 11 mmHg. 5. The inferior vena cava is dilated, respiratory size variation greaterthan 50%. Comparison Compared to prior exam of 04/16/2023, there has been no significantchange. Chamber Sizes and Function Normal left ventricular size, moderately increased wall thickness, normalglobal systolic function with an estimated EF of 55 - 60%. No restingregional wall motion abnormality visualized. Left atrial size is normal.Right ventricular cavity size is mildly enlarged, global systolic RVfunction is mildly reduced. RV wall thickness is normal. The right atriumis normal. Right atrial volume index is 24 ml/m? ? ?. Right atrial area is 16cm? ? ?. The pulmonary artery is of normal size and origin. The sinus ofValsalva is normal sized. The ascending aorta is normal sized. Valves, RV Pressures and Diastolic Function The aortic valve is functioning 25 mm Inspiris bioprosthesis replacement,no stenosis and no regurgitation. The mitral valve is Biocor/Epicbioprosthesis replacement, no mitral regurgitation. Indeterminate patternof LV diastolic filling. The tricuspid valve is normal in structure.Tricuspid regurgitation is mild regurgitation. The tricuspid regurgitantvelocity is 2.5 m/s, the estimated right ventricular systolic pressure is25 mmHg plus right atrial pressure. The pulmonic valve is normal. Tracepulmonary regurgitation. Masses, Effusion, Shunts There is no pericardial effusion. The inferior vena cava is dilated,respiratory size variation greater than 50%. No left to right shunting wasdetected by limited color flow Doppler interrogation of the interatrialseptum. MEASUREMENTS AND CALCULATIONS 2-D Measurements and LV Function: LVID (d) 4.6 cm LV FS% (2D) 29 % LVID (s) 3.3 cm LVOT diameter 2.0 cm IVS (d) 1.3 cm HR 74 bpm LVPW (d) 1.2 cm LA Vol index 26 ml/m2 Ao Sinus 3.4 cm RA Vol index 24 ml/m2 Asc Ao 4.0 cm RA area 16 cm? ? ? RV Max 4C (d) 5.6 cm Diastology: Mitral E Peak 1.2 m/s A Peak 1.9 m/s E/A 0.6 DT 301 msec Aortic Valve: Vmax 2.2 m/s BUNNY (V) 2.20 cm? ? ? VTI 0.47 m BUNNY (I) 1.94 cm? ? ? LVOT V max 1.5 m/s Max PG 19 mmHg LVOT VTI 0.29 m Mean PG 11 mmHg SV 91 ml Dim Index 0.61 SV index 43 ml/m? ? ? CO 6.8 l/min CI 3.2 l/min/m? ? ? Mitral Valve: MVA 2.5 cm? ? ? MR TVI 0.49 m MV P 1/2 87 msec MV Mean G 7 mmHg MV VTI 0.45 m Tricuspid Valve and estimated PA pressures: TR Vmax 2.5 m/s TAPSE 1.3 cm TR maxG 25 mmHg . This study was interpreted by an [facility] accredited facility. Final Leti Bazan MD ECHO ORD * SCAN-ELECTROCARDIOGRAM EKG (01/01/2024 12:00 AM CDT) Only the most recent of2 resultswithin the time period is included. Scanner OTHER * SCAN-CT INTERPRETATION (12/19/2023 12:00 AM CDT) Only the most recent of3 resultswithin the time period is included. Anatomical Region Laterality Modality Other Scanner OTHER * PSA (TOTAL) ([facility]) (12/17/2023 3:29 PM CDT) PSA, TOTAL 2.32 < OR = 4.00 ng/mL [facility] Comment: The total PSA value from this assay system is standardized against the WHO standard. The test result will be approximately 20% lower when compared to the equimolar-standardized total PSA (Kaz Sedgwick). Comparison of serial PSA results should be [...] PM CDT Courtney Munoz DO SEND OUTS [facility] [address] [place] [address], [facility] [address] [facility] [place] [address] * (ABNORMAL) LIPID PANEL W REFLEX MEASURED LDL (12/17/2023 3:29 PM CDT) CHOLESTEROL, TOTAL 158 <200 mg/dL [facility] HDL CHOLESTEROL 43 > OR = 40 mg/dL [facility] TRIGLYCERIDES 185(H) <150 mg/dL [facility] LDL-CHOLESTEROL 87 mg/dL (calc) [facility] [facility] Comment: Reference range: <100 Desirable range <100 mg/dL for primary prevention; ?? <70 mg/dL for patients with CHD or diabetic patients with > or = 2 CHD risk factors. LDL-C is now calculated using the Apryl calculation, which is a validated novel method providing better accuracy than the Friedewald equation in the estimation of LDL-C. Romeo SS et al. ERIC. 2013;310(55): 5774-3902 (http://education.iOmando/faq/BIW373) CHOL/HDLC RATIO 3.7 <5.0 (calc) [facility] NON HDL CHOLESTEROL 115 <130 mg/dL (calc) [facility] Comment: For patients with diabetes plus 1 major ASCVD risk factor, treating to a non-HDL-C goal of <100 mg/dL (LDL-C of <70 mg/dL) is considered a therapeutic option. Blood BLOOD SPECIMEN / Unknown 12/17/2023 3:29 PM CDT 12/17/2023 3:29 PM CDT Courtney Munoz DO CHEMISTRY [employer] [address] [place] [address], [facility] [address] [place] [address] * (ABNORMAL) BASIC METABOLIC PANEL (12/17/2023 3:29 PM CDT) [facility] GLUCOSE 100(H) 65 - 99 mg/dL [employer] [facility]oney Comment: ? Fasting reference interval For someone without known diabetes, a glucose value between 100 and 125 mg/dL is consistent with prediabetes and should be confirmed with a follow-up test. UREA NITROGEN (BUN) 19 7 - 25 mg/dL [facility] CREATININE 0.96 0.70 - 1.22 mg/dL [facility] EGFR 78 > OR = 60 mL/min/1. [...] 3:29 PM CDT Courtney Munoz DO CHEMISTRY [facility] [address] [place] [address], [facility] [address] [place] [address] * XR TOES 3 VIEWS LEFT (11/26/2023 4:25 PM CDT) Anatomical Region Laterality Modality TOES Computed Radiogr aphy 11/27/2023 1:38 PM CDT Impressions 11/27/2023 1:38 PM CDT Left great toe osteoarthritis. Dictated by Luly Bridges MD @ 11/27/2023 1:38:08 PM (Electronically Signed) Narrative 11/27/2023 1:38 PM CDT For Patients: ??As a result of the Century Cures Act, medical imaging exams and procedure [...] - 7.0 mg/dL 11/27/2023 1:40 PM CDT [facility] Blood BLOOD SPECIMEN / Unknown Venipuncture / Unknown 11/26/2023 4:10 PM CDT 11/26/2023 4:10 PM CDT [facility] Alexander HODGE CHEMISTRY [facility] [address] [place] [address], * PLATELET COUNT (10/16/2023 4:22 PM CDT) PLATELET COUNT 185 140 - 440 thou/cu mm 10/16/2023 4:26 PM CDT [facility] MPV 9.3 6.5 - 11.0 fL 10/16/2023 4:26 PM CDT [facility] Blood BLOOD SPECIMEN / Unknown Venipuncture / Unknown 10/16/2023 4:22 PM CDT 10/16/2023 4:23 PM CDT Courtney Munoz DO HEMATOLOGY Performing Organization Address City/[facility]/ZIP Co de Phone Number [facility] [address] [place] [address], [place] [phone] * WHITE BLOOD COUNT (10/16/2023 4:22 PM CDT) WHITE BLOOD COUNT 8.0 4.5 - 11.0 thou/cu mm 10/16/2023 4:26 PM CDT [facility] Blood BLOOD SPECIMEN / Unknown Venipuncture / Unknown 10/16/2023 4:22 PM CDT 10/16/2023 4:23 PM CDT Vijilibertad Munoz DO HEMATOLOGY Performing Organization Address [facility] de Phone Number [facility] [address] [place] [address], [place] [phone] from Last 3 Months Advance Directives Documents on File Type Date Recorded Patient Third Mate Expl anation Healthcare Directive 10/01/2018 1:39 PM [...] 11:30 AM 05/23/2016 10:53 PM Care Teams Content Strategist Relationship Specialty Start Date End Date Courtney Munoz DO [address] [place] [address] PCP - General Family Practice 10/09/20 Kelly Villegas AuD Audiology 11/11/11
--- OUTSIDE RECORDS SUMMARY | 2024-01-12 22:04 | XMS_ITS | Continuity of Care Document ---
Author Organization [facility] Address [address] [place] [address] Phone Care Team Providers Care Long Chain Beamer Name Role Phone Rosalie Hdez Unavailable Unavailable Procedures Procedure Date Office/outpatient visit,[facility] 2010 Advance Directives Directive Yes / No Effective Date File Name No Information Encounters Encounter Description Practice Location Reason(s) For Visit Diagnoses Date Provider Providers Copied on Encounter Office/outpat ient visit,[facility] [place] [facility] [place] [facility], [address], [place], [address], [place] tel:[phone] [facility] No Information Kristy Wiggins. [facility], [address] [place] [address], [address], [place]. tel:[phone] Referring Provider: Chet Arana, [address], [address]. tel:[phone] Family History Family Member Type Diagnosis Age At Onset No Information Payers Payer name Insurance type Covered republican ID Authoriza tijuan carlos(s) [employer] Medicare CI [id number] Social History Type Description Quantity Date Captured [...]
[2024-01-12 22:19] VITALS: BP 135/74; PULSE 85; RESP 20; TEMP 36.5; O2SAT 96
[2024-01-12 22:23] VITALS: BP 135/74; PULSE 85; RESP 20; TEMP 36.5
== END 2024-01-12 22:24 | disposition home or self-care (01) ==
PROVIDERS: Emergency Provider Emergency Medicine; PCP Student in an Organized Health Care Education/Training Program
DX: R20.0 Anesthesia of skin (principal)
CPT/HCPCS: 97110; 97140; 99282; 99283

== ENCOUNTER 2024-02-09 10:30 | Outpatient (RCR) | payer MEDICARE, SELFPAY | END 2024-02-09 14:26 | disposition home or self-care (01) | PROVIDERS: PCP Student in an Organized Health Care Education/Training Program; Visit Provider Student in an Organized Health Care Education/Training Program | DX: M54.16 Radiculopathy, lumbar region (principal); G57.11 Meralgia paresthetica, right lower limb; Z51.89 Encounter for other specified aftercare | CPT/HCPCS: 97110; 97140; 97162 ==

== ENCOUNTER 2024-10-31 08:56 | Emergency (ER) | payer MEDICARE, SELFPAY ==
--- OUTSIDE RECORDS SUMMARY | 2024-10-31 09:00 | XMS_ITS | Clinical Summary ---
Author Organization [facility] Address [address] [place] [id number] Care Team Providers Care Linoleum Mechanic Name Role Phone Kelly Barry Unavailable [phone] Courtney Munoz DO Primary Care Provider [phone] Allergies Active Allergy Reactions Criticality Noted Date Comments Codeine GI Upset,Nausea Only Low 05/27/2006 Medications multivitamin (MVI) tablet Take 1 Tablet by mouth once daily. Active acetaminophen (TYLENOL EXTRA STRGTH) 500 mg tabletIndicati ons:S/P MVR (mitral valve replacement) Take 2 Tablets by mouth every 6 hours if needed for Pain. Max acetaminophen dose: 4000mg in 24 hrs. 0 06/28/19 22 Active cholecalcifero l (VITAMIN D3) 2,000 unit capsuleIndicat ions:Vitamin D deficiency Take 1 Capsule (2,000 units) by mouth once daily. 90 Capsule 2 07/31/19 24 Active metoprolol succinate (TOPROL XL) 25 mg Sustained-Rele ase tabletIndicati ons:S/P MVR (mitral valve replacement),C ardiomyopathy, unspecified type (HC) Take 1 Tablet (25 mg) by mouth once daily. 90 Tablet 3 12/17/19 24 Active tamsulosin (FLOMAX) 0.4 mg capsuleIndicat ions:BPH with urinary obstruction Take 1 Capsule (0.4 mg) by mouth at bedtime. 90 Capsule 3 12/17/19 24 Active clopidogreL (PLAVIX) 75 mg tabletIndicati ons:TIA (transient ischemic attack) Take 1 Tablet (75 mg) by mouth once daily in the morning. 90 Tablet 3 01/04/20 24 Active triamcinolone 0.5 % creamIndicatio ns:Dermatitis Apply topically to affected area(s) three times daily. 15 g 03/04/20 24 Active Additional Information Patient taking differently:TopicalTID PRN, Reported on 08/29/2024 rosuvastatin (Crestor) 20 mg tabletIndicati ons:TIA (transient ischemic attack) Take 1 Tablet (20 mg) by mouth at bedtime. 90 Tablet 3 06/17/19 25 Active blood-glucose meterIndicatio ns:Hypoglycemi a Inject subcutaneous 3 times daily if needed (for hypoglycemia). Dispense meter covered by pts insurance. 1 Each 07/13/19 25 Active lancetsIndicat ions:Hypoglyce jose angel As directed 3 times daily if needed (hypoglycemia). Test 3 times per day. 100 Each 07/13/19 25 Active blood sugar diagnostic (Blood Glucose Test) stripIndicatio ns:Hypoglycemi a Test 3 times per day. 100 Each 07/13/19 25 Active CPAPIndication s:ALOK (obstructive sleep apnea) RESMED CPAP (E0601) machine for home use at pressure: 5-20cmw, Choice of mask (A7030 or A7034) w/full face cushion (A7031) x1/mo, nasal cushion (A7032) x2/mo, or nasal pillows (A7033) x 2/mo; Length of Need: 99 months; Frequency of use: Daily 1 Each 08/12/19 25 Active ketoconazole 2 % creamIndicatio ns:Tinea pedis of right foot Apply topically to affected area(s) two times daily. 60 g 2 08/30/19 25 Active gabapentin 100 mg capsuleIndicat ions:Radiculop athy of cervical spine,Radicula r low back pain Take 1 Capsule (100 mg) by mouth once daily in the morning AND 2 Capsules (200 mg) at bedtime. 270 Capsule 08/31/19 25 Active ferrous sulfate 325 mg delayed release tabletIndicati ons:Microcytic anemia TAKE ONE TABLET BY MOUTH EVERY DAY WITH A MEAL 90 Tablet 2 10/19/19 25 Active ferrous sulfate 325 mg delayed release tabletIndicati ons:Microcytic anemia TAKE ONE TABLET BY MOUTH EVERY DAY WITH A MEAL 90 Tablet 2 01/26/20 24 2024 Discontinued Active Problems Problem Noted Date Diagnosed Date Polyarthritis 08/29/2024 Overview (08/29/2024): AI Summary: The patient had a joint fluid test about 45 years ago, which ruled out gout. On 12/02/2021, the patient had acute gout involving the toe of the right foot, cause unspecified, and was prescribed indomethacin. 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 07/08/24: Uric acid (Urate) 7.6 mg/dL 05/16/21: RF 169.04 IU/mL On meds: acetaminophen, gabapentin, triamcinolone acetonide Recent encounter dx: 12/02/21: Appointment - [facility] Recent notes: 12/02/21: Progress Notes by Courtney Munoz DO ... [+] Acute gout involving toe of right foot, unspecified cause M10.9 indomethacin (INDOCIN) 25 mg capsule Purpura 03/25/2022 History of bacterial endocarditis 01/28/2022 [...] Encounters Date Type Department Care Team Description 10/31/2024 Nurse Triage [address] [address] Courtney Munoz DO Abdominal Pain 10/19/2024 Telephone [facility] [address] [place] [address] Cong Walsh, Rudi Questions (RT hearing aid issue.) 10/18/2024 3:45 PM CDT Office Visit [facility] [address] [place] [address] Courtney Munoz DO Toe Pain/problem (Callus / fungus - also feels weird between pinky toe - no sore noted ); Dizziness (Since getting home he will have an episode of dizziness (feels tipsy almost) and he checks his BS and its normal - then notes he has a BM and feels better - has happened x3 days - wonders about miralax ) 10/18/2024 Travel 10/15/2024 Refill [facility] [address] [place] [address] Courtney Munoz DO Refill Request (Ferrous Sulfate) 09/01/2024 Telephone [facility] [address] [place] [address] Courtney Munoz DO Medication Management (gabapentin 100 mg capsule- 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/) 08/29/2024 9:00 AM CDT Office Visit [facility] [address] [place] [address] Edward Mora MD Toe Pain/problem (intermittent stinging and burning x 4-5 days, right great toe) 08/29/2024 Travel 08/26/2024 Orders Only [facility] Scanner 1 scan: (1-Ord) TAREEN DERM, SQUAMOUS CELL CARCINOMA IN SITU, MOHS SURG, 08/26/2024 08/24/2024 Telephone [facility] [address] [place] [address] Courtney Munoz DO Appointment Request (Earlier Appt) 08/11/2024 4:00 PM CDT Office Visit [facility] [address] [place] [address] Rufus Wiley MD Sleep Consult 08/10/2024 11:25 AM CDT Office Visit [facility] [address] [place] [address] Courtney Munoz DO Blood Sugar (Follow up on blood sugars - still having low feeling episodes but numbers are like 110-120s and he will feel weak, shaky, and need a snack ) 08/10/2024 Travel from Last 3 Months Immunizations Immunization Administration Dates Next Due COVID-19 VACCINE SPIKEVAX (M ODERNA 50MCG/0.5ML) 12YO+ PFS 12/17/2023 COVID-19 vaccine (Moderna 100mcg/0.5mL) PF, MDV 01/15/2021,06/20/2020,05/23/2020 COVID-19 vaccine (Moderna Kb aubree 50mcg/0.25mL) PF, MDV 07/04/2021 COVID-19 vaccine (Pfizer-Bio NTech 30mcg/0.3mL) 12YO+ BIVALENT PF, MDV 07/17/2022 Influenza A (H1N1), Inactivated 04/03/2009 Influenza Virus, Unspecified 12/30/2018 Influenza, High-dose Inactivated 12/12/2015,08/2014,12/20/2013 Influenza, High-dose Quadriv alent Inactivated 12/29/2019 Influenza, [...] 0 12/17/2023 Social Connections Answer Date Recorded Do you often feel lonely or isolated from those around you? 0 12/17/2023 Financial Resource Strain Answer Date R ecorded Difficulty of Paying Living Expenses 3 12/17/2023 Difficulty of Paying Living Expenses Not on file 12/17/2023 Food Insecurity Answer Date Recorded Do you worry your food will run out before you are able to buy more? 1 12/17/2023 Transportation Needs Answer Date Record ed Does lack of transportation keep you from medica l appointments? 1 12/17/2023 Does lack of transportation keep you from work, meetings or getting things that you need? 1 12/17/2023 Housing Stability Answer Date Recorded What is your housing situation today? 1 12/17/2023 Utilities Answer Date Recorded Do you have trouble paying f or utilities (for example, heat, electricity, water, phone)? 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 ANALYST Gender Identity Not on file Sexual Orientation Not on file Travel History Travel Start Travel End [place] 10/08/2024 10/11/2024 [facility] 09/13/2024 10/07/2024 Obstetrics History Last Filed Vital Signs Vital Sign Reading Time Taken Comments Blood Pressure 138/75 10/18/2024 3:50 PM CDT rec heck Pulse 80 10/18/2024 3:43 PM CDT Temperature 36.6 C (97.9 F) 08/29/2024 8:52 AM CDT Respiratory Rate 18 07/08/2024 6:03 PM CDT Oxygen Saturation 96% 10/18/2024 3:43 PM CDT Inhaled Oxygen Concentration - - Weight 98.6 kg (217 lb 6.4 oz) 10/18/2024 3:43 P M CDT Height 177.8 cm (5' 10) 08/11/2024 3:55 PM CDT Body Mass Index 31.19 08/11/2024 3:55 PM CDT Plan of Treatment Upcoming Encounters Date Type Department Care Team (Late st Contact Info) Description 11/23/2024 11:00 AM CDT Office Visit [facility] [address] [place] [address] Rufus Wiley MD [address] [place] [address] 02/22/2025 Cardiac Device Check [facility] [phone] Health Maintenance Due Date Last Done Comments Influenza Vaccine (#1) 2024 , 02/14/2023, 12/02/2021, Additional history exists Depression screening for age 12+ 12/16/2024 12/17/2023, 11/28/2023, 11/26/2023, Additional history exists Medicare Wellness for age 65+ 12/17/2024 12/17/2023, 07/17/2022, 07/09/2021, Additional history exists BMI (ht and wt on same day) for age 18+ 08/11/2025 08/11/2024, 05/18/2024, 12/17/2023, Additional history exists Tetanus booster 11/21/2031 11/20/2021, 03/2010, 04/23/2010, Additional history exists Pneumococcal series for age 50+ Completed 04/15/2016, 04/23/2010 Zoster (shingles) series for age 50+ Completed 08/27/2018, 05/05/2018 RSV vaccine for adults or Completed 03/28/2023 COVID-19 vaccine series Completed 06/29/19, 12/17/2023, 10/10/2023, Additional history exists Hepatitis B series for 19+ Aged Out N o longer eligible based on patient's age to complete this topic Medical Devices Implanted Type Area Hr Intern Device Identifier Shelf Expiration Date Model / Serial / Lot Valve Mitral 31mm Epic Plus Porcine Tissue - [id number] Implanted:Qty: 1 on 06/19/2021 by Tito Mosher MD at [facility] Cv Implants N/A: Mitral Valve [facility] [employer] [facility] 02/11/2022 [id number] / [id number] / Valve Aortic 25mm [employer] Resilia Tissue - [id number] Implanted:Qty: 1 on 06/19/2021 by Ttio Mosher MD at [facility] Cv Implants N/A: Mitral Valve [employer] 01/30/2025 [id number] / [id number] / Stent Uret 2cys14mn Contour - [id number] Implanted:Qty: 1 on 05/23/2016 by Liang Burger MD at [facility] 12/18/2018 [id number] / / [id number] Procedures Procedure Name Priority Date/Time Associated Diagnosis Comments SCAN-OPERATIVE/PROC EDURE REPORT 08/26/2024 12:00 AM CDT TSH WITH REFLEX Routine 08/10/2024 11:45 AM CDT Hypoglycemia Unspecified abnormal involuntary movements FERRITIN Routine 08/10/2024 11:45 AM CDT Iron deficiency VITAMIN B12 Routine 08/10/2024 11:45 AM CDT Unspecified abnormal involuntary movements from Last 3 Months Results * SCAN-OPERATIVE/PROCEDURE REPORT (08/26/2024 12:00 AM CDT) us Scanner OTHER Final Result * TSH WITH REFLEX (08/10/2024 11:45 AM CDT) TSH W/REFLEX TO FT4 1.56 0.40 - 4.50 mIU/L [facility] Blood BLOOD SPECIMEN / Unknown 08/10/2024 11:45 AM CDT 08/10/2024 11:46 AM CDT us Vijii Alexander DO CHEMISTRY Final Result [facility] [address] [place] [address], [facility] [address] [place] [address] * FERRITIN (08/10/2024 11:45 AM CDT) FERRITIN 186 24 - 380 ng/mL [facility] Blood BLOOD SPECIMEN / Unknown 08/10/2024 11:45 AM CDT 08/10/2024 11:46 AM CDT us Adei Alonzoqra DO CHEMISTRY Final Result [facility] [address] [place] [address], [place] [phone] [facility] [address] [place] [address] * VITAMIN B12 (08/10/2024 11:45 AM CDT) VITAMIN B12 681 200 - 1,100 pg/mL [facility] Blood BLOOD SPECIMEN / Unknown 08/10/2024 11:45 AM CDT 08/10/2024 11:46 AM CDT us Courtney Munoz DO CHEMISTRY Final Result [facility] [address] [place] [address], [place] [phone] [facility] [address] [place] [address] from Last 3 Months Insurance [employer] MEDICARE ADVANTAGE MEDICARE PART A HB ONLY HC [employer] MEDICARE PDGM Advance Directives Documents on File Type Date Recorded Patient Certified Medical Coding Specialist Expl anation Healthcare Directive 10/01/2018 1:39 PM [...] 11:30 AM 05/23/2016 10:53 PM Care Teams Linoleum Mechanic Relationship Specialty Start Date End Date Courtney [place] [address] PCP - General Family Practice 10/09/20 Kelly Barry AuD Audiology 11/11/11
[2024-10-31 09:06] VITALS: BP 163/79; PULSE 84; RESP 18; TEMP 36.3; O2SAT 94; BMI 29.8
--- NOTE | 2024-10-31 09:24 | ED.GENADULT ---
HPI - General Adult General Date Seen: 10/31/24 Chief complaint: Abdominal Pain Stated complaint: abdominal pain- was sent by [facility] Time Seen by Provider: 10/31/24 09:14 History of Present Illness HPI narrative: 84-year-old male is referred to the ER today from the [facility] phone triage line. According to [facility] records he has a past medical history of bacterial endocarditis, aortic valve replacement, mitral valve replacement, pacemaker, hypertension, cardiomyopathy, hyperlipidemia, osteoarthritis, BPH, history of kidney stones, GERD. He notes that he does have a history of enlarged prostate and has been on Flomax for some time. He notes that he has urinary hesitancy typically in the morning so a couple weeks ago his primary care provider, Dr. Bailey salgado, at [facility] increased his dose of Flomax up to 2 tablets daily. He also notes that he is on multiple other medications that can cause constipation. For the past couple weeks he has noticed increasing trouble with constipation where he is able to pass bowel movements but they tend to be small and hard and clumpy and often times require a lot of pushing and straining for them to pass. He is not having any diarrhea. Does not really think he is completely blocked up because he was able to pass a few small stools this morning. He tends to note some pressure in his lower pelvis and suprapubic region typically in the morning for the past couple weeks but has been more prominent for the past 4 days. He has not had any fever. No diarrhea. He has been able to urinate is not noted any hematuria, cloudy urine or overt dysuria. He does feel like he is able to empty his bladder but it sometimes will take a couple of trips to the bathroom to completely empty it out. He has not had a fever. No abdominal pain. No flank pain. Related Data Home Medications ?Medication ?Instructions ?Recorded ?Confirmed cholecalciferol (vitamin D3) 50 2,000 unit PO DAILY 11/25/21 10/31/24 mcg (2,000 unit) capsule ferrous sulfate 325 mg (65 mg 325 mg PO DAILY 11/25/21 10/31/24 iron) tablet,delayed release gabapentin 100 mg capsule 100 mg PO Q8H 11/25/21 10/31/24 metoprolol succinate 25 mg 25 mg PO DAILY 11/25/21 10/31/24 tablet,extended release 24 hr tamsulosin 0.4 mg capsule 0.4 mg PO Q24H 11/25/21 10/31/24 Held on 02/26/22. Instructions: Doctor's Order doxylamine succinate 25 mg tablet 25 mg PO QHS PRN 02/25/22 09/05/24 (Unisom (doxylamine)) multivitamin 1 tab PO DAILY 02/25/22 10/31/24 sennosides 8.6 mg capsule (senna) 8.6 mg PO BID 02/25/22 09/05/24 clopidogrel 75 mg tablet 75 mg PO DAILY 01/12/24 10/31/24 rosuvastatin 20 mg tablet 20 mg PO QPM 10/31/24 10/31/24 Previous Rx's ?Medication ?Instructions ?Recorded triamcinolone acetonide 0.1 % 1 applic topical BID PRN 10/14/23 topical ointment dermatitis #30 grams polyethylene glycol 3350 17 17 g PO BID PRN #238 grams 10/31/24 gram/dose oral powder (Miralax) Allergies Allergy/AdvReac Type Severity Reaction Status Date / Time codeine AdvReac Mild gi upset, Verified 09/05/24 13:11 nausea PFSH PFSH Medical History Cardiomyopathy ?I42.9 - Cardiomyopathy, unspecified (ICD-10) Radiculopathy of cervical spine ?M54.12 - Radiculopathy, cervical region (ICD-10) Plantar fasciitis ?M72.2 - Plantar fascial fibromatosis (ICD-10) Hypertension ?I10 - Essential (primary) hypertension (ICD-10) Kidney calculus ?N20.0 - Calculus of kidney (ICD-10) GERD (gastroesophageal reflux disease) ?K21.9 - Gastro-esophageal reflux disease without esophagitis (ICD-10) Chronic anticoagulation ?Z79.01 - ferry terminal agent (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) use of anticoagulants (ICD-10) Mitral valve disorder ?I05.9 - Rheumatic mitral valve disease, unspecified (ICD-10) 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 - Other specified bacterial diseases (ICD-10) Hyperplastic colon polyp ?K63.5 - Polyp of colon (ICD-10) Depressive disorder ?F32.A - Depression, unspecified (ICD-10) Bilateral hearing loss ?H91.93 - Unspecified hearing loss, bilateral (ICD-10) Anxiety state, unspecified ?F41.1 - Generalized anxiety disorder (ICD-10) Acute bacterial endocarditis ?I33.0 - Acute and subacute infective endocarditis (ICD-10) Surgical History Hx of colonoscopy ?Z98.890 - Other specified postprocedural states (ICD-10) Aortic valve replaced ?Z95.2 - Presence of prosthetic heart valve (ICD-10) S/P ureteral stent placement ?Z96.0 - Presence of urogenital implants (ICD-10) H/O arthroscopy of shoulder ?Z98.890 - Other specified postprocedural states (ICD-10) H/O hernia repair ?Z98.890 - Other specified postprocedural states (ICD-10) ?Z87.19 - Personal history of other diseases of the digestive system (ICD-10) Social History Smoking Status: Former smoker Do you use any of these nicotine containing products: None Second hand tobacco smoke exposure: No How often do you have a drink containing alcohol: 2-4 times a month Alcohol type: wine How many standard drinks containing alcohol do you have on a typical day: 1 or 2 How often do you have six or more drinks on one occasion: Never AUDIT-C Alcohol total score: 2 Non-prescribed substance use: denies use Caffeine: No service: No Exam Narrative: Exam Narrative: Constitutional: Appears well-developed and well-nourished. Alert. Conversant. Non toxic. HENT: Head: Atraumatic. Nose: Nose normal. Mouth/Throat: Oral mucosa is clear and moist. no trismus. Pharynx normal. Tonsils symmetric. No tonsillar enlargement, erythema, or exudate. Eyes: Conjunctivae normal. EOM normal. Pupils equal, round, and reactive to light. No scleral icterus. Neck: Normal range of motion. Neck supple. No tracheal deviation present. Cardiovascular: Normal rate, regular rhythm. No gallop. No friction rub. No murmur heard. Symmetric radial artery pulses Pulmonary/Chest: Effort normal. No stridor. No respiratory distress. No wheezes. No rales. No rhonchi . No tenderness. Abdominal: Soft. Bowel sounds normal. No distension. No mass. Suprapubic> left lower quadrant tenderness. No right lower quadrant tenderness. No upper tenderness. No CVA tenderness. No rebound. No guarding. Musculoskeletal: RUE: Normal range of motion. No tenderness. No deformity LUE: Normal range of motion. No tenderness. No deformity RLE: Normal range of motion. No edema. No tenderness. No deformity LLE: Normal range of motion. No edema. No tenderness. No deformity Neurological: Alert and oriented to person, place, and time. Normal strength. CN II-VII intact. No sensory deficit. GCS eye subscore is 4. GCS verbal subscore is 5. GCS motor subscore is 6. Normal coordination Skin: Skin is warm and dry. No rash noted. No pallor. Normal capillary refill. Psychiatric: Normal mood. Normal affect. Const: Vital Signs, click to edit/add: Vital Signs - 24 hr 10/31/24 09:06 Temperature 97.3 F L Pulse Rate [Pulse Oximeter] 84 Respiratory Rate 18 Blood Pressure [Ri t Upper Arm] 163/79 H Pulse Oximetry 94 Oxygen Delivery Me thod Room Air Course Reevaluation(s) Reevaluation #1: Recheck-patient says after exam he did go to the bathroom had a very small hard bowel movement. After CT imaging yet another bowel movement that was larger. After that he noted that his left lower quadrant abdominal pain was substantially improving. He is now feeling better. After discussion of labs and CT he is comfortable with plan for outpatient management. Vital Signs Vital signs: Initial Vital Signs Temperature 97.3 F L 10/31/24 09:06 Temperature Source Temporal Artery Scan 10/31/24 09:06 Pulse Rate 84 10/31/24 09:06 Respiratory Rate 18 10/31/24 09:06 Blood Pressure 163/79 H 10/31/24 09:06 Blood Pressure Mean 107 H 10/31/24 09:06 Blood Pressure Position Sitting 10/31/24 09:06 Pulse Oximetry 94 10/31/24 09:06 Oxygen Delivery Method Room Air 10/31/24 09:06 Vital Signs Temperature 97.3 F L 10/31/24 09:06 Pulse Rate 84 10/31/24 09:06 Respiratory Rate 18 10/31/24 09:06 Blood Pressure 163/79 H 10/31/24 09:06 Pulse Oximetry 94 10/31/24 09:06 Oxygen Delivery Method Room Air 10/31/24 09:06 Temperature 97.3 F L 10/31/24 09:06 Pulse Rate 84 10/31/24 09:06 Respiratory Rate 18 10/31/24 09:06 Blood Pressure 163/79 H 10/31/24 09:06 Pulse Oximetry 94 10/31/24 09:06 Oxygen Delivery Method Room Air 10/31/24 09:06 Medical Decision Making MDM Narrative Medical decision making narrative: Presented to the Emergency Department with suprapubic/left lower quadrant abdominal pain. He does have a known history of BPH and is on tamsulosin for that. He has been noting increasing urinary hesitancy in the morning but not over urinary retention. Urinalysis is normal today. No evidence for active UTI. The differential diagnosis of abdominal pain includes: Diverticulitis/colitis, constipation, Bowel Obstruction, Ulcer, Ischemia, Diverticulitis, Pancreatitis, UTI, kidney stone, Enteritis/Colitis, less likely would be appendicitis since his pain is all suprapubic and left-sided amongst many other etiologies. Laboratory testing does not reveal a cause for the patient's pain. White count normal. Hemoglobin hemoconcentrated at 16. LFTs normal. No right upper quadrant pain to raise concern for cholecystitis. CT imaging shows signs of constipation without any evidence for acute colitis, diverticulitis, obstruction. CT also shows severe prostate enlargement. At this point it appears that the symptoms are probably related to the patient's stool burden. Will treat with oral laxatives from above. Will start on MiraLax twice daily for the next couple days. Patient will titrate his dose of MiraLax to maintain soft regular bowel movements. Decreased the dose as he develops soft liquid output or diarrhea. He is comfortable titrating as needed. Follow-up with PCP the [facility] for ongoing adjustment of the medications. May need outpatient urology follow-up, which can be arranged through his PCP and [facility], for his BPH. Lab Data Labs: Lab Results 10/31/24 10/31/24 Range/Units 09:55 10:00 WBC 6.07 (4.50-11.00) K/uL RBC 5.66 (4.30-5.90) m/uL Hgb 16.8 (13.5-17.5) gm/dL Hct 50.2 (37.0-53.0) % MCV 89 (80-100) fL MCH 30 (26-34) pg MCHC 34 (32-36) gm/dL RDW Coeff of Stephen 12.9 (11.5-15.5) % Plt Count 162 (140-440) K/uL Neut % (Auto) 73.3 H (42.0-72.0) % Lymph % (Auto) 18.0 L (20-44) % [place] % (Auto) 7.9 (0.0-11.0) % Eos % (Auto) 0.0 (0.0-7.0) % Baso % (Auto) 0.5 (0.0-3.0) % Neut # (Auto) 4.40 (1.7-7.0) K/uL Lymph # (Auto) 1.10 (0.90-2.90) K/uL [place] # (Auto) 0.50 (0.00-0.90) K/UL Eos # (Auto) 0.00 (0.00-0.50) K/uL Baso # (Auto) 0.03 (0.00-0.30) K/uL Abs Immat Gran (auto) 0.02 (0.00-0.30) K/uL Imm/Tot Granulo (auto) 0.3 % Sodium 136 (135-149) mmol/L Potassium 4.2 (3.6-5.1) mmol/L Chloride 105 (96-114) mmol/L Carbon Dioxide 24 (20-32) mmol/L Anion Gap 7 (7-15) mEq/L BUN 18 (7-30) mg/dL Creatinine 0.8 (0.5-1.5) mg/dL Estimated Creat Clear 58.57 Estimated GFR 87 ml/min Glucose 141 H (60-115) mg/dL Lactate 1.3 (0.5-1.9) mmol/L Calcium 10.3 (8.4-10.6) mg/dL Urine Color Yellow (Yellow) Urine Appearance Clear (Clear) Urine pH 5.5 (5.0-8.5) Ur Specific [place] 1.015 (1.000-1.030) Urine Protein Negative (Negative) Urine Glucose (UA) Negative (Negative) Urine Ketones Negative (Negative) Urine Blood Negative (Negative) Urine Nitrite Negative (Negative) Urine Bilirubin Negative (Negative) Urine Urobilinogen 0.2 (0.2-1.0) Ur Leukocyte Esterase Negative (Negative) Urine RBC 0-2 (0-2) Urine WBC 0-2 (0-5) Ur Squamous Epith Cells Few (None-Few) Urine Bacteria Few A (None) Imaging Data CT scan - abdomen: Attestation: I have reviewed the pertinent imaging results. Radiologist's impression: IMPRESSION: 1. No hydronephrosis. Nonobstructing right renal calculi measuring up to 5 millimeter. 2. Mild descending and sigmoid colonic diverticulosis without CT evidence of acute diverticulitis. Fjjskzff-bi-aargd stool burden is seen throughout the colon. No evidence of bowel obstruction. Fecalization of distal small bowel contents may represent delayed transit. 3. Mild narrowing and bladder wall thickening with small anterior bladder diverticulum and moderately to severely enlarged prostate. Findings may represent chronic bladder outlet obstruction. Consider correlation with urinalysis to evaluate for infection. Discharge Plan Discharge Clinical Impression: Constipation, Abdominal pain, LLQ, BPH (benign prostatic hyperplasia) Patient Disposition: Home, Self-Care Condition: Stable Instructions: Constipation (ED), Enlarged Prostate (BPH) (ED), Abdominal Pain (ED) Additional Instructions: As we discussed, so far your workup looks reassuring. You do have a lot of constipation notable on your CT scan but no other serious problems of your colon. To help with constipation I want you to start on MiraLax. You can mix 1 capful in 8 oz of water and drink it. Do that 2 times per day for the next couple of days. As you start to have more bowel movements and your stools become softer, you can decrease your dose of MiraLax from 2 times daily down to once daily. As your stools become softer, you will probably be able to stop MiraLax and only use it periodically on days when you for need it. If your pain is not completely resolved within 24 hours, or if you have any other concerns such as fever, bloody stool, weakness, or any problems, please come back to the ER right away. Your CT scan shows that you do have an enlarged prostate. Please follow-up with her doctor at the [facility] for a recheck within 5-7 days. Prescriptions: New polyethylene glycol 3350 [Miralax] 17 gram/dose powder 17 g PO BID PRNQty: 238 0RF No Action triamcinolone acetonide 0.1 % ointment 1 applic topical BID PRN (Reason: dermatitis ) Qty: 30 0RF Unisom (doxylamine) 25 mg tablet 25 mg PO QHS PRN multivitamin Tablet 1 tab PO DAILY senna 8.6 mg capsule 8.6 mg PO BID tamsulosin 0.4 mg capsule 0.4 mg PO Q24H gabapentin 100 mg capsule 100 mg PO Q8H metoprolol succinate 25 mg tablet extended release 24 hr 25 mg PO DAILY cholecalciferol (vitamin D3) 50 mcg (2,000 unit) capsule 2,000 unit PO DAILY ferrous sulfate 325 mg (65 mg iron) tablet,delayed release (DR/EC) 325 mg PO DAILY clopidogrel 75 mg tablet 75 mg PO DAILY rosuvastatin 20 mg tablet 20 mg PO QPM Follow Up/Referrals: QUENTIN PATEL DO [Primary Care Provider, Family Practice] Stand Alone Forms: [facility] Info Instructions
--- NOTE | 2024-10-31 09:49 | CRLHL7_ITS ---
For Patients: As a result of the 21st Century Cures Act, medical imaging exams and procedure reports are released immediately into your electronic medical record. You may view this report before your referring provider. If you have questions, please contact your health care provider. INDICATION: suprapubic and LLQ abd pain TECHNIQUE: CT of the abdomen and pelvis was obtained with 105 mL of Isovue 370 intravenous contrast. Please note that all CT scans at this facility use dose modulation, iterative reconstruction, and/or weight-based dosing when appropriate to reduce radiation dose to as low as reasonably achievable. COMPARISON: 01/25/2022. FINDINGS: Lower thorax: Postsurgical changes from median sternotomy, aortic valvular replacement, and mitral valvuloplasty. Partial visualization of pacemaker lead. Partial visualization of epicardial pacing wires. Right lung calcified granuloma. Liver and biliary tree: Normal. Gallbladder: Contracted. Spleen: Normal. Pancreas: Normal. Adrenal glands: Normal. Kidneys and ureters: No hydronephrosis. Nonobstructing right renal calculi measuring up to 5 millimeter (2/61). Subcentimeter hypoattenuating lesions are too small to characterize and are favored to represent cysts. Gastrointestinal tract: Mild descending and sigmoid colonic diverticulosis without CT evidence of acute diverticulitis. Jnbmtumr-xn-xubgo stool burden is seen throughout the colon. No evidence of acute appendicitis. No evidence of bowel obstruction. Fecalization of distal small bowel contents. Peritoneal cavity: Normal. Bladder: Mild wall thickening with small anterior bladder diverticulum. Pelvic organs: Moderately to severely enlarged prostate. Vasculature: Moderate mixed atherosclerosis. Lymph nodes: Normal. Abdominal wall: Rectus diastasis. Small fat containing periumbilical hernia. Postsurgical changes from bilateral inguinal hernia repairs. Musculoskeletal: Moderate degenerative changes of the visualized spine and bilateral hips. IMPRESSION: 1. No hydronephrosis. Nonobstructing right renal calculi measuring up to 5 millimeter. 2. Mild descending and sigmoid colonic diverticulosis without CT evidence of acute diverticulitis. Gwcajyje-to-bdkrl stool burden is seen throughout the colon. No evidence of bowel obstruction. Fecalization of distal small bowel contents may represent delayed transit. 3. Mild narrowing and bladder wall thickening with small anterior bladder diverticulum and moderately to severely enlarged prostate. Findings may represent chronic bladder outlet obstruction. Consider correlation with urinalysis to evaluate for infection. Please note that all CT scans at this facility use dose modulation, iterative reconstruction, and/or weight-based dosing when appropriate to reduce radiation dose to as low as reasonably achievable. Dictated by Dony Barragan MD @ 10/31/2024 11:05:13 AM (Electronically Signed)
[2024-10-31 10:06] LABS: Appearance Urine Clear (Clear)
[2024-10-31 10:08] LABS: Hematocrit 50.2 % (37.0-53.0); Hemoglobin* 16.8 gm/dL (13.5-17.5); Immature Granulocytes Abs Auto 0.02 K/uL (0.00-0.30); Immature Granulocytes Pct Auto 0.3 %; Lactate* 1.3 mmol/L (0.5-1.9); Mean Corpuscular HGB Conc 34 gm/dL (32-36); Mean Corpuscular Hemoglobin 30 pg (26-34); Mean Corpuscular Volume 89 fL (80-100); RDW Coefficient of Variation % 12.9 % (11.5-15.5); Red Blood Count 5.66 m/uL (4.30-5.90); White Blood Count* 6.07 K/uL (4.50-11.00)
[2024-10-31 10:17] LABS: Lymphocytes Absolute Auto 1.10 K/uL (0.90-2.90)
[2024-10-31 10:18] LABS: Slide Review Reflex No
[2024-10-31 10:25] LABS: Chloride* 105 mmol/L (96-114); Potassium* 4.2 mmol/L (3.6-5.1); Sodium* 136 mmol/L (135-149)
[2024-10-31 10:28] LABS: Blood Urea Nitrogen* 18 mg/dL (7-30); Creatinine* 0.8 mg/dL (0.5-1.5); Est. Creatinine Clearance* 58.57; Estimated Glomerular Filt Rate 87 ml/min
[2024-10-31 10:29] LABS: Anion Gap 7 mEq/L (7-15); Calcium* 10.3 mg/dL (8.4-10.6); Carbon Dioxide* 24 mmol/L (20-32); Glucose* 141 mg/dL (60-115)
== END 2024-10-31 12:14 | disposition home or self-care (01) ==
PROVIDERS: Emergency Provider Emergency Medicine; PCP Student in an Organized Health Care Education/Training Program
DX: R10.32 Left lower quadrant pain (principal); N40.0 Benign prostatic hyperplasia without lower urinary tract symptoms; K59.00 Constipation, unspecified
CPT/HCPCS: 36415; 74177; 80048; 81001; 83605; 85025; 87086; 99283; 99284; Q9967

== ENCOUNTER 2025-02-11 08:43 | Emergency (ER) | payer MEDICARE, SELFPAY ==
--- OUTSIDE RECORDS SUMMARY | 2025-02-11 08:44 | XMS_ITS | Clinical Summary ---
Author Organization [facility] Address [address] [place] [address] Care Team Providers Care Gum Rolling Machine Tender Name Role Phone Kelly Barry Unavailable [phone] Courtney Munoz DO Primary Care Provider [phone] Allergies Active Allergy Reactions Criticality Noted Date [...] daily. 90 Capsule 2 07/31/19 24 Active triamcinolone 0.5 % creamIndicatio ns:Dermatitis Apply topically to affected area(s) three times daily. 15 g 03/04/20 24 Active Additional Information Patient taking differently:TopicalTID PRN, Reported on 11/23/2024 rosuvastatin (Crestor) 20 mg tabletIndicati ons:TIA (transient [...] per day. 100 Each 07/13/19 25 Active ketoconazole 2 % creamIndicatio ns:Tinea pedis of right foot Apply topically to affected area(s) two times daily. 60 g 2 08/30/19 25 Active ferrous sulfate 325 mg delayed release tabletIndicati ons:Microcytic anemia TAKE ONE TABLET BY MOUTH EVERY DAY WITH A MEAL 90 Tablet 2 10/19/19 25 Active CPAPIndication s:ALOK (obstructive sleep apnea) RESMED CPAP (E0601) machine for home use at pressure: 10.6 cmw, Choice of mask (A7030 or A7034) w/full face cushion (A7031) x1/mo, nasal cushion (A7032) x2/mo, or nasal pillows (A7033) x 2/mo; Length of Need: 99 months; Frequency of use: Daily 1 Each 11/25/19 25 Active tamsulosin 0.4 mg capsuleIndicat ions:BPH with urinary obstruction TAKE ONE CAPSULE BY MOUTH EVERY DAY AT BEDTIME 90 Capsule 2 12/12/19 25 Active clopidogreL (PLAVIX) 75 mg tabletIndicati ons:TIA (transient ischemic attack) TAKE ONE TABLET BY MOUTH EVERY MORNING 90 Tablet 3 12/20/19 25 Active gabapentin (NEURONTIN) 100 mg capsuleIndicat ions:Radiculop athy of cervical spine,Radicula r low back pain TAKE ONE CAPSULE BY MOUTH EVERY MORNING AND TAKE TWO CAPSULES BY MOUTH AT BEDTIME 270 Capsule 3 01/16/20 25 Active metoprolol succinate (TOPROL XL) 25 mg Sustained-Rele ase tabletIndicati ons:S/P MVR (mitral valve replacement),C ardiomyopathy, unspecified type (HC) TAKE ONE TABLET BY MOUTH ONCE EVERY DAY 90 Tablet 01/31/20 25 Active gabapentin 100 mg capsuleIndicat ions:Radiculop athy of cervical spine,Radicula r low back pain Take 1 Capsule (100 mg) by mouth once daily in the morning AND 2 Capsules (200 mg) at bedtime. 270 Capsule 08/31/19 25 2024 Discontinued metoprolol succinate (TOPROL XL) 25 mg Sustained-Rele ase tabletIndicati ons:S/P MVR (mitral valve replacement),C ardiomyopathy, unspecified type (HC) TAKE ONE TABLET BY MOUTH ONCE EVERY DAY 30 Tablet 12/20/19 25 2024 Discontinued Active Problems Problem Noted Date [...] acetonide Recent encounter dx: 12/02/21: Appointment - [facility] Recent notes: 12/02/21: Progress Notes by Courtney [...] Encounters Date Type Department Care Team Description 02/07/2025 9:45 AM COLON AND RECTAL SURGEON Ancillary Procedure [facility] [address] [place] [address] Arrived 02/07/2025 8:55 AM COLON AND RECTAL SURGEON Office Visit [facility] [address] [place] [address] Courtney Munoz DO Toe Pain/problem (X2 weeks - 2nd toe (next to great toe) - has some numbness - especially at night time - denies pain, change of color or tempeture ) 02/07/2025 Travel 02/03/2025 Orders Only [facility] Scanner 1 scan: (1-Ord) TAREEN DERMATOLOGY, BIOPSY BY JERROD, LT SUPERIOR MEDIAL MALAR CHEEK, LT SOFT TRIANGLE OF NOSE, RT CENTRAL EYEBROW, 02/03/2025 01/29/2025 Refill [facility] [address] [place] [address] Courtney Munoz DO Refill Request (Metoprolol Succinate) 01/14/2025 Refill [facility] [address] [place] [address] Courtney Munoz DO Refill Request (Gabapentin) 12/22/2024 2:05 PM CDT Office Visit [facility] [address] [place] [address] Courtney Munoz DO Derm Problem (Hand sores); Hand Pain/problem (LEFT handle, knuckle spur - no pain/RIGHT hand - finger nails have stripes ) 12/22/2024 Travel 12/19/[address] [address] Rigoberto Rubalcava MD Refill Request (Clopidogrel) 12/19/2024 Refill [facility] [address] [place] [address] Courtney Munoz DO Refill Request (Metoprolol Succinate) 12/13/[address] [address] Rufus Wiley MD 12/09/[address] [address] Courtney Munoz DO Refill Request 12/09/[address] [address] Courtney Munoz DO Refill Request (Tamsulosin) 11/24/[address] [address] Rufus Wiley MD 11/23/2024 11:00 AM CDT Office Visit [address] [address] Rufus Wiley MD Sleep Follow-up 11/23/2024 Travel from Last 3 Months Immunizations Immunization [...] Inactivated IIV3 (Age 65+ Years) Preserv Free 12/22/2024,12/17/2023,12/01/2017,01/08 Pneumococcal Conj 20-valent (Prevnar 20) 11/01/2024 Pneumococcal Poly,23-Valent (Pneumovax) 04/23/2010 Pneumococcal conj 13-Valent [...] or isolated from those around you? 0 02/07/2025 Alcohol Use Answer Date Recorded How often do you have a drink containing alcohol ? 1 02/07/2025 How many drinks containing a lcohol do you have on a typical day when you are drinking? 1 02/07/2025 How often do you have five or more drinks on one occasion? 0 02/07/2025 Financial Resource Strain Answer Date R ecorded Difficulty of Paying Living Expenses 3 02/07/2025 Difficulty of Paying Living Expenses Not on file 02/07/2025 Food Insecurity Answer Date Recorded Do you worry your food will run out before you are able to buy more? 1 02/07/2025 Transportation Needs Answer Date Record ed Does lack of transportation keep you from medica l appointments? 1 02/07/2025 Does lack of transportation keep you from work, meetings or getting things that you need? 1 02/07/2025 Housing Stability Answer Date Recorded What is your housing situation today? 1 02/07/2025 Utilities Answer Date Recorded Do you have trouble paying f or utilities (for example, heat, electricity, water, phone)? 1 02/07/2025 Sex and Gender Information Value Date Recorded Sex Assigned at Not on file Legal Sex Male 5:40 AM COLON AND RECTAL SURGEON Gender Identity Not on file Sexual Orientation Not on file Obstetrics History Last Filed Vital Signs Vital Sign Reading Time Taken Comments Blood Pressure 146/84 02/07/2025 8:55 AM COLON AND RECTAL SURGEON rec heck Pulse 79 02/07/2025 8:53 AM COLON AND RECTAL SURGEON Temperature 36.6 C (97.9 F) 08/29/2024 8:52 AM CDT Respiratory Rate 18 07/08/2024 6:03 PM CDT Oxygen Saturation 98% 02/07/2025 8:53 AM COLON AND RECTAL SURGEON Inhaled Oxygen Concentration - - Weight 100.5 kg (221 lb 8 oz) 02/07/2025 8:53 AM COLON AND RECTAL SURGEON Height 177.8 cm (5' 10) 11/23/2024 10:56 AM CDT Body Mass Index 31.78 11/23/2024 10:56 AM CDT Plan of Treatment Upcoming Encounters Date Type Department Care Team (Late st Contact Info) Description 02/22/2025 Cardiac Device Check [facility] [phone] 03/09/2025 10:00 AM COLON AND RECTAL SURGEON Ancillary Procedure [facility] [address] [place] [address] 04/04/2025 1:30 PM COLON AND RECTAL SURGEON Office Visit [facility] [address] [place] [address] Rufus Wiley MD [address] [place] [address] Health Maintenance Due Date Last Done Comments Depression screening for age 12+ 12/16/2024 12/17/2023, 11/28/2023, 11/26/2023, Additional history exists Medicare Wellness for age 65+ 12/17/2024 12/17/2023, 07/17/2022, 07/09/2021, Additional history exists BMI (ht and wt on same day) for age 18+ 11/23/2025 11/23/2024, 08/11/2024, 05/18/2024, Additional history exists Tetanus booster 11/21/2031 11/20/2021, 02/0 03/2010, 04/23/2010, Additional history exists Zoster (shingles) series for age 50+ Completed 08/27/2018, 05/05/2018 RSV vaccine for adults or Completed 03/28/2023 Pneumococcal series for age 50+ Completed 11/01/2024, 04/15/2016, 04/23/2010 Influenza Vaccine Completed 12/22/2024, , 02/14/2023, Additional history exists Hepatitis B series for 19+ Aged Out N o longer eligible based on patient's age to complete this topic Medical Devices Implanted Type Area Tele Grout Sewer Line Repairer Device Identifier Shelf Expiration Date Model / Serial / Lot Valve Mitral 31mm Epic Plus Porcine Tissue - [id number] Implanted:Qty: 1 on 06/19/2021 by Tito Mosher MD at [facility] Cv Implants N/A: Mitral Valve [employer] [facility] 02/11/2022 [id number] / [id number] / Valve Aortic 25mm Insp[employer] Resilia Tissue - [id number] Implanted:Qty: 1 on 06/19/2021 by Tito Mosher MD at [facility] Cv Implants N/A: Mitral Valve [employer] 01/30/2025 [id number] / [id number] / Stent Uret [id number] Contour - [id number] Implanted:Qty: 1 on 05/23/2016 by Liang Burger MD at [facility] Ureter [facility] 12/18/2018 [id number] / / [id number] Procedures Procedure Name Priority Date/Time Associated Diagnosis Comments HEMOGLOBIN A1C MONITORING (POCT) Routine 02/07/2025 9:50 AM COLON AND RECTAL SURGEON Prediabetes XR RIBS LEFT AND PA CHEST MINIMUM 3 VIEWS Routine 02/07/2025 9:45 AM COLON AND RECTAL SURGEON Rib pain on left side SCAN-OPERATIVE/PROCE DURE REPORT 02/03/2025 12:00 AM COLON AND RECTAL SURGEON from Last 3 Months Results * HEMOGLOBIN A1C MONITORING (POCT) (02/07/2025 9:50 AM COLON AND RECTAL SURGEON) POC HEMOGLOBIN A1C 5.8 <6.0 % OF TOTAL HGB 02/07/2025 9:59 AM COLON AND RECTAL SURGEON [facility] Comment: Any point of care results exhibiting inconsistency with the patient's clinical status should be repeated using a different testing method. Blood BLOOD SPECIMEN / Unknown [facility] / Unknown 02/07/2025 9:50 AM COLON AND RECTAL SURGEON 02/07/2025 9:50 AM COLON AND RECTAL SURGEON us Adei Shaqra DO CHEMISTRY Final Result [facility] [address] [place] [address], [place] [phone] [facility] [address] [place] [address], [place] [phone] * XR RIBS LEFT AND PA CHEST MINIMUM 3 VIEWS (02/07/2025 9:45 AM COLON AND RECTAL SURGEON) Anatomical Region Laterality Modality RIBS, RIBS L, CHEST Computed Rad iography 02/07/2025 11:3 2 AM COLON AND RECTAL SURGEON Impressions 02/07/2025 11:32 AM COLON AND RECTAL SURGEON No acute findings. Dictated by Bashir Bedolla MD @ 02/07/2025 11:32:22 AM (Electronically Signed) Narrative 02/07/2025 11:32 AM COLON AND RECTAL SURGEON For Patients: As a result of the Cures Act, medical imaging exams and procedure reports are released immediately into your electronic medical record. You may view this report before your referring provider. If you have questions, please contact your health care provider. INDICATION: Rib pain on left side. TECHNIQUE: Chest and left ribs 2 views. COMPARISON: 06/27/2021. FINDINGS: Cardiovascular and mediastinum: Status post median sternotomy. Cardiac pacemaker, unchanged Heart size and vasculature are normal in size and appearance. Mediastinum is within normal limits. Lungs and pleural spaces: Lungs are clear. No sign of infiltrate or mass. No sign of pleural effusion. No pneumothorax. Bones and soft tissues: Detailed oblique images of the left ribs demonstrate no fractures or bone lesions. Procedure Note Bashir Bedolla MD - 02/07/2025 For Patients: As a result of the Cures Act, medical imagingexams and procedure reports are released immediately into your electronicmedical record. You may view this report before your referring provider.If you have questions, please contact your health care provider. INDICATION: Rib pain on left side. TECHNIQUE: Chest and left ribs 2 views. COMPARISON: 06/27/2021. FINDINGS: Cardiovascular and mediastinum: Status post median sternotomy. Cardiacpacemaker, unchanged Heart size and vasculature are normal in size and appearance. Mediastinumis within normal limits. Lungs and pleural spaces: Lungs are clear. No sign of infiltrate ormass. No sign of pleural effusion. No pneumothorax. Bones and soft tissues: Detailed oblique images of the left ribsdemonstrate no fractures or bone lesions. IMPRESSION: No acute findings. 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
[2025-02-11 08:47] VITALS: BP 152/83; PULSE 80; RESP 18; TEMP 36.6; O2SAT 99
--- NOTE | 2025-02-11 09:18 | CRLHL7_ITS ---
For Patients: As a result of the Century Cures Act, medical imaging exams and procedure reports are released immediately into your electronic medical record. You may view this report before your referring provider. If you have questions, please contact your health care provider. INDICATION: Left flank pain, constipation. TECHNIQUE: CT abdomen and pelvis without contrast. COMPARISON: CT abdomen and pelvis 10/31/2024. FINDINGS: Lower chest: Partially visualized intracardiac leads. Aortic and mitral valve replacements. Liver: Unremarkable. Gallbladder and bile ducts: Unremarkable. No biliary ductal dilation. Pancreas: Unremarkable. Spleen: Unremarkable. Adrenal glands: Unremarkable. Kidneys: Right nonobstructing nephroliths. No hydronephrosis. GI tract: No obstruction. No evidence of significant bowel inflammation. Mild colonic diverticulosis without diverticulitis. Normal appendix. Vasculature: Moderate aortoiliac atherosclerosis. Lymph nodes: No lymphadenopathy. Peritoneum/Abdominal Wall: Tiny fat containing umbilical hernia. Sequela of prior inguinal hernia repairs. Rectus diastasis. Pelvis: Moderate prostatomegaly. Incompletely distended bladder with small anterior bladder diverticulum, likely related to chronic bladder outlet obstruction. Bones: Median sternotomy is partially visualized. Moderate degenerative disease of the spine. IMPRESSION: No acute findings to explain symptoms. Please note that all CT scans at this facility use dose modulation, iterative reconstruction, and/or weight-based dosing when appropriate to reduce radiation dose to as low as reasonably achievable. Dictated by Paradise Urbina MD @ 02/11/2025 10:00:41 AM (Electronically Signed)
--- NOTE | 2025-02-11 09:19 | ED.GENADULT ---
HPI - General Adult General Chief complaint: Abdominal Pain Stated complaint: abdominal pain Time Seen by Provider: 02/11/25 09:17 History of Present Illness HPI narrative: 84-year-old male reports left flank in lateral abdominal discomfort over the last few days. He was seen by the clinic and had some x-rays of his chest, rule out pneumonia. These apparently were unremarkable. He continues to have discomfort in this left lateral upper abdominal area and lower chest wall area. He has had no cough, fevers, chills, dysuria frequency. He has had some constipation. He has had a problem with constipation in the past. He has not had a regular bowel movement recently. He has had a kidney stone in the past. Related Data Home Medications ?Medication ?Instructions ?Recorded ?Confirmed cholecalciferol (vitamin D3) 50 2,000 unit PO DAILY 11/25/21 02/11/25 mcg (2,000 unit) capsule ferrous sulfate 325 mg (65 mg 325 mg PO DAILY 11/25/21 02/11/25 iron) tablet,delayed release gabapentin 100 mg capsule 100 mg PO Q8H 11/25/21 02/11/25 metoprolol succinate 25 mg 25 mg PO DAILY 11/25/21 02/11/25 tablet,extended release 24 hr tamsulosin 0.4 mg capsule 0.4 mg PO Q24H 11/25/21 02/11/25 Held on 02/26/22. Instructions: Doctor's Order doxylamine succinate 25 mg tablet 25 mg PO QHS PRN 02/25/22 02/11/25 (Unisom (doxylamine)) multivitamin 1 tab PO DAILY 02/25/22 02/11/25 sennosides 8.6 mg capsule (senna) 8.6 mg PO BID 02/25/22 02/11/25 clopidogrel 75 mg tablet 75 mg PO DAILY 01/12/24 02/11/25 rosuvastatin 20 mg tablet 20 mg PO QPM 10/31/24 02/11/25 Previous Rx's ?Medication ?Instructions ?Recorded triamcinolone acetonide 0.1 % 1 applic topical BID PRN 10/14/23 topical ointment dermatitis #30 grams polyethylene glycol 3350 17 17 g PO BID PRN #238 grams 10/31/24 gram/dose oral powder (Miralax) Allergies Allergy/AdvReac Type Severity Reaction Status Date / Time codeine AdvReac Mild gi upset, Verified 02/11/25 08:51 nausea Review of Systems Status of ROS: Reports: 6 or more systems reviewed and unremarkable except as noted in History and below [facility] Medical History Cardiomyopathy ?I42.9 - Cardiomyopathy, unspecified (ICD-10) Radiculopathy of cervical spine ?M54.12 - Radiculopathy, cervical region (ICD-10) Plantar fasciitis ?M72.2 - Plantar fascial fibromatosis (ICD-10) Hypertension ?I10 - Essential (primary) hypertension (ICD-10) Kidney calculus ?N20.0 - Calculus of kidney (ICD-10) GERD (gastroesophageal reflux disease) ?K21.9 - Gastro-esophageal reflux disease without esophagitis (ICD-10) Chronic anticoagulation ?Z79.01 - skilled nursing (current) use of anticoagulants (ICD-10) Mitral valve disorder ?I05.9 - Rheumatic mitral valve disease, unspecified (ICD-10) 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 - Other specified bacterial diseases (ICD-10) Hyperplastic colon polyp ?K63.5 - Polyp of colon (ICD-10) Depressive disorder ?F32.A - Depression, unspecified (ICD-10) Bilateral hearing loss ?H91.93 - Unspecified hearing loss, bilateral (ICD-10) Anxiety state, unspecified ?F41.1 - Generalized anxiety disorder (ICD-10) Acute bacterial endocarditis ?I33.0 - Acute and subacute infective endocarditis (ICD-10) Surgical History Hx of colonoscopy ?Z98.890 - Other specified postprocedural states (ICD-10) Aortic valve replaced ?Z95.2 - Presence of prosthetic heart valve (ICD-10) S/P ureteral stent placement ?Z96.0 - Presence of urogenital implants (ICD-10) H/O arthroscopy of shoulder ?Z98.890 - Other specified postprocedural states (ICD-10) H/O hernia repair ?Z98.890 - Other specified postprocedural states (ICD-10) ?Z87.19 - Personal history of other diseases of the digestive system (ICD-10) Social History Smoking Status: Former smoker Do you use any of these nicotine containing products: None Second hand tobacco smoke exposure: No How often do you have a drink containing alcohol: 2-4 times a month Alcohol type: wine How many standard drinks containing alcohol do you have on a typical day: 1 or 2 How often do you have six or more drinks on one occasion: Never AUDIT-C Alcohol total score: 2 Non-prescribed substance use: denies use Caffeine: No service: No Exam Narrative: Exam Narrative: Objective: Vital signs show slightly elevated systolic pressure, afebrile Alert orient x3 no distress Abdomen obese benign nontender he has got some mild left lateral upper abdominal discomfort, no palpable mass, mild tenderness along his costochondral margin. He feels like most of his tenderness that was below his ribs in inside his lower ribs on the left. No skin rashes noted. Rest of abdomen is benign Extremities are no edema neurologic nonfocal Pulses regular. Const: Vital Signs, click to edit/add: Vital Signs - 24 hr 02/11/25 08:47 Temperature 97.9 F Pulse Rate [Right Pulse Oximeter] 80 Respiratory Rate 18 Blood Pressure [Ri ght Upper Arm] 152/83 H Pulse Oximetry 99 Oxygen Delivery Me thod Room Air Course Vital Signs Vital signs: Initial Vital Signs Temperature 97.9 F 02/11/25 08:47 Temperature Source Temporal Artery Scan 02/11/25 08:47 Pulse Rate 80 02/11/25 08:47 Pulse Rhythm Regular 02/11/25 08:47 Pulse Strength 3+ Normal 02/11/25 08:47 Respiratory Rate 18 02/11/25 08:47 Blood Pressure 152/83 H 02/11/25 08:47 Blood Pressure Mean 106 H 02/11/25 08:47 Blood Pressure Position Sitting 02/11/25 08:47 Pulse Oximetry 99 02/11/25 08:47 Oxygen Delivery Method Room Air 02/11/25 08:47 Vital Signs Temperature 97.9 F 02/11/25 08:47 Pulse Rate 80 02/11/25 08:47 Respiratory Rate 18 02/11/25 08:47 Blood Pressure 152/83 H 02/11/25 08:47 Pulse Oximetry 99 02/11/25 08:47 Oxygen Delivery Method Room Air 02/11/25 08:47 Temperature 97.9 F 02/11/25 08:47 Pulse Rate 80 02/11/25 08:47 Respiratory Rate 18 02/11/25 08:47 Blood Pressure 152/83 H 02/11/25 08:47 Pulse Oximetry 99 02/11/25 08:47 Oxygen Delivery Method Room Air 02/11/25 08:47 Medications Administered Medications: Discontinued Medications Generic Name Dose Route Start Last Admin Trade Name Chase PRN Reason Stop Dose Admin Docusate Sodium/Benzocaine 5 ml 02/11/25 10:12 02/11/25 10:52 Docusate Sodium/Benzocaine 5 Ml Enema PA 02/11/25 10:13 5 ml ONCE ONE Administration Sodium Chloride 500 mls @ 500 mls/hr 02/11/25 09:17 02/11/25 10:35 0.9 % Sodium Chloride 500 Ml IV 02/11/25 10:16 Infused .Q1H ONE Infusion Ibuprofen 600 mg 02/11/25 10:29 02/11/25 10:51 Ibuprofen 200 Mg Tablet PO 02/11/25 10:30 600 mg ONCE ONE Administration Medical Decision Making MDM Narrative Medical decision making narrative: 84-year-old male with left-sided flank pain. History of kidney calculus history of constipation. Rule out intra-abdominal pathology such as diverticulitis, kidney stone, constipation. Patient will get a CT scan without contrast, urinalysis, lab studies, IV fluid. Disposition pending findings above. Addendum 10:30 a.m.: The patient has an unremarkable CT scan abdomen, my review shows some stool in the rectum and colon. I think his symptoms might be more consistent with constipation given he has had this issue before, has not had a good bowel movement for a couple of days. Will give him an Enemeez enema here, subsequent to that will have him use MiraLax 1 cap in water 2 to 3 times a day until he is moving his bowels well and his stools are almost loose, and then he can back off to perhaps 1 capful in water every other day. Increase fiber in the diet. The patient's lab studies look reassuring his urinalysis looks negative. Will see if gets response from his enema and then likely home with MiraLax. Will give 1 dose ibuprofen here as it should be non constipating, and I would not have him continue this he can use Tylenol at home. Addendum 11:30 a.m.: The patient had some results with the enema, I would recommend he do MiraLax 3 times a day for the next couple of days to see if he can get movement going, he can recheck with regular doctor as needed, he was comfortable this plan. His imaging and labs look reassuring. Lab Data Labs: Lab Results 02/11/25 02/11/25 Range/Units 09:27 09:30 WBC 5.88 (4.50-11.00) K/uL RBC 5.77 (4.30-5.90) m/uL Hgb 17.5 (13.5-17.5) gm/dL Hct 51.5 (37.0-53.0) % MCV 89 (80-100) fL MCH 30 (26-34) pg MCHC 34 (32-36) gm/dL RDW Coeff of Stephen 12.8 (11.5-15.5) % Plt Count 164 (140-440) K/uL Neut % (Auto) 68.4 (42.0-72.0) % Lymph % (Auto) 22.4 (20-44) % Taney % (Auto) 8.5 (0.0-11.0) % Eos % (Auto) 0.0 (0.0-7.0) % Baso % (Auto) 0.5 (0.0-3.0) % Neut # (Auto) 4.02 (1.7-7.0) K/uL Lymph # (Auto) 1.32 (0.90-2.90) K/uL Taney # (Auto) 0.50 (0.00-0.90) K/UL Eos # (Auto) 0.00 (0.00-0.50) K/uL Baso # (Auto) 0.03 (0.00-0.30) K/uL Abs Immat Gran (auto) 0.01 (0.00-0.30) K/uL Imm/Tot Granulo (auto) 0.2 % Sodium 138 (135-149) mmol/L Potassium 4.1 (3.6-5.1) mmol/L Chloride 97 (96-114) mmol/L Carbon Dioxide 27 (20-32) mmol/L Anion Gap 14 (7-15) mEq/L BUN 18 (7-30) mg/dL Creatinine 0.8 (0.5-1.5) mg/dL Estimated GFR 87 ml/min Glucose 118 H (60-115) mg/dL Calcium 10.2 (8.4-10.6) mg/dL Total Bilirubin 1.8 H (0.1-1.5) mg/dL Direct Bilirubin 0.3 (0.0-0.5) mg/dL AST 33 (12-35) U/L ALT 22 (4-50) U/L Alkaline Phosphatase 70 (40-150) U/L C-Reactive Protein < 0.5 L (0.5-1.0) mg/dL Total Protein 8.1 (6.0-8.3) g/dL Albumin 4.9 (3.3-5.0) g/dL Amylase 97 H (18-89) U/L Urine Color Yellow (Yellow) Urine Appearance Clear (Clear) Urine pH 6.5 (5.0-8.5) Ur Specific [place] 1.020 (1.000-1.030) Urine Protein Negative (Negative) Urine Glucose (UA) Negative (Negative) Urine Ketones Negative (Negative) Urine Blood Negative (Negative) Urine Nitrite Negative (Negative) Urine Bilirubin Negative (Negative) Urine Urobilinogen 0.2 (0.2-1.0) Ur Leukocyte Esterase Negative (Negative) Urine RBC 0-2 (0-2) Urine WBC 0-2 (0-5) Ur Squamous Epith Cells Few (None-Few) Urine Bacteria Few A (None) Discharge Plan Discharge Clinical Impression: Abdominal pain, Flank pain, Constipation Patient Disposition: Home w/ Parent or Adult Condition: Improved Instructions: Constipation (ED) Additional Instructions: Recommend MiraLax 1 capful in water 2 to 3 times a day until your moving her bowels well, then back off to 1 capful in water every other day. Increase fiber in your diet. May take Tylenol as needed. Recheck with primary care as needed within the next 3-5 days, return to ED sooner problems or concerns. Activity Level: No Restrictions Discharge Diet: High Fiber Prescriptions: No Action triamcinolone acetonide 0.1 % ointment 1 applic topical BID PRN (Reason: dermatitis ) Qty: 30 0RF Unisom (doxylamine) 25 mg tablet 25 mg PO QHS PRN multivitamin Tablet 1 tab PO DAILY senna 8.6 mg capsule 8.6 mg PO BID tamsulosin 0.4 mg capsule 0.4 mg PO Q24H gabapentin 100 mg capsule 100 mg PO Q8H metoprolol succinate 25 mg tablet extended release 24 hr 25 mg PO DAILY cholecalciferol (vitamin D3) 50 mcg (2,000 unit) capsule 2,000 unit PO DAILY ferrous sulfate 325 mg (65 mg iron) tablet,delayed release (DR/EC) 325 mg PO DAILY clopidogrel 75 mg tablet 75 mg PO DAILY rosuvastatin 20 mg tablet 20 mg PO QPM polyethylene glycol 3350 [Miralax] 17 gram/dose powder 17 g PO BID PRNQty: 238 0RF Follow Up/Referrals: QUENTIN PATEL DO [Primary Care Provider, Family Practice] Stand Alone Forms: MyHealth Info Instructions
[2025-02-11] MEDS: 0.9 % SODIUM CHLORIDE 500 ML 500 ML IV (09:35)
[2025-02-11 09:44] LABS: Hematocrit* 51.5 % (37.0-53.0); Hemoglobin* 17.5 gm/dL (13.5-17.5); Immature Granulocytes Abs Auto 0.01 K/uL (0.00-0.30); Immature Granulocytes Pct Auto 0.2 %; Lymphocytes Absolute Auto 1.32 K/uL (0.90-2.90); Mean Corpuscular HGB Conc 34 gm/dL (32-36); Mean Corpuscular Hemoglobin 30 pg (26-34); Mean Corpuscular Volume 89 fL (80-100); RDW Coefficient of Variation % 12.8 % (11.5-15.5); Red Blood Count* 5.77 m/uL (4.30-5.90); White Blood Count* 5.88 K/uL (4.50-11.00)
[2025-02-11 09:45] LABS: Appearance Urine Clear (Clear)
[2025-02-11 09:52] LABS: Slide Review Reflex No
[2025-02-11 09:57] LABS: Albumin* 4.9 g/dL (3.3-5.0); Chloride* 97 mmol/L (96-114); Sodium* 138 mmol/L (135-149)
[2025-02-11 09:58] LABS: Potassium* 4.1 mmol/L (3.6-5.1)
[2025-02-11 10:00] VITALS: BP 146/90; PULSE 75; RESP 14; O2SAT 96
[2025-02-11 10:00] LABS: Anion Gap 14 mEq/L (7-15); Blood Urea Nitrogen* 18 mg/dL (7-30); Carbon Dioxide* 27 mmol/L (20-32); Creatinine* 0.8 mg/dL (0.5-1.5); Estimated Glomerular Filt Rate 87 ml/min
[2025-02-11 10:01] LABS: Alanine Aminotransferase* 22 U/L (4-50); Alkaline Phosphatase* 70 U/L (40-150); Aspartate Amino Transferase* 33 U/L (12-35); Bilirubin Direct* 0.3 mg/dL (0.0-0.5); Bilirubin Total* 1.8 mg/dL (0.1-1.5); Calcium* 10.2 mg/dL (8.4-10.6); Glucose* 118 mg/dL (60-115); Total Protein* 8.1 g/dL (6.0-8.3)
[2025-02-11] MEDS: IBUPROFEN 200 MG TABLET 600 MG PO (10:51)
[2025-02-11] MEDS: DOCUSATE SODIUM/BENZOCAINE 5 ML ENEMA PR (10:52)
[2025-02-11 11:00] VITALS: BP 159/86; PULSE 73; RESP 14; O2SAT 96
== END 2025-02-11 11:45 | disposition home or self-care (01) ==
PROVIDERS: Emergency Provider Family Medicine; PCP Student in an Organized Health Care Education/Training Program
DX: K59.00 Constipation, unspecified (principal); R10.A2 Flank pain, left side; R82.90 Unspecified abnormal findings in urine
CPT/HCPCS: 36415; 74176; 80048; 80076; 81001; 82150; 85025; 86140; 87086; 96360; 99284; 99285; A9270; J7030

== ENCOUNTER 2025-02-13 03:50 | Emergency (ER) | payer MEDICARE, SELFPAY ==
[2025-02-13 03:51] VITALS: BP 148/82; PULSE 84; RESP 14; TEMP 35.6; O2SAT 95; BMI 30.2
--- OUTSIDE RECORDS SUMMARY | 2025-02-13 03:53 | XMS_ITS | Clinical Summary ---
Author Organization [facility] Address [address] [place] [id number] Care Team Providers Care Kaiako Kura Tuarua Name Role Phone Kelly Barry Unavailable [phone] Courtney Munoz DO Primary Care Provider [phone] Allergies Active Allergy Reactions Criticality Noted Date [...] acetonide Recent encounter dx: 12/02/21: Appointment - [facility] Recent notes: 12/02/21: Progress Notes by [...] Department Care Team Description 02/07/2025 9:45 AM HOST HOSTESS Ancillary Procedure [facility] [address] [place] [address] 02/07/2025 8:55 AM HOST HOSTESS Office Visit [facility] [address] [place] [address] Courtney Munoz DO Toe Pain/problem (X2 weeks - 2nd toe (next to great toe) - has some numbness - especially at night time - denies pain, change of color or tempeture ) 02/07/2025 Travel 02/03/2025 Orders Only [facility] Scanner 1 scan: (1-Ord) TAREEN DERMATOLOGY, BIOPSY BY JERROD, LT SUPERIOR MEDIAL MALAR CHEEK, LT SOFT TRIANGLE OF NOSE, RT CENTRAL EYEBROW, 02/03/2025 01/29/2025 Refill [facility] [address] [place] [address] Courtney Munoz DO Refill Request (Metoprolol Succinate) 01/14/2025 Refill [facility] [address] [place] [address] Courtney Munoz DO Refill Request (Gabapentin) 12/22/2024 2:05 PM CDT Office Visit [facility] [address] [place] [address] Courtney Munoz DO Derm Problem (Hand sores); Hand Pain/problem (LEFT handle, knuckle spur - no pain/RIGHT hand - finger nails have stripes ) 12/22/2024 Travel 12/19/2024 Refill [facility] [address] [place] [address] Rigoberto Rubalcava MD Refill Request (Clopidogrel) 12/19/2024 Refill [facility] [address] [place] [address] Corutney Munoz DO Refill Request (Metoprolol Succinate) 12/13/[address] [address] Rufus Wiley MD 12/09/[address] [address] Courtney Munoz DO Refill Request 12/09/[address] [address] Courtney Munoz DO Refill Request (Tamsulosin) 11/24/[address] [address] Rufus Wiley MD 11/23/2024 11:00 AM CDT Office Visit [address] [address] Rufus Wiley MD Sleep Follow-up 11/23/2024 Travel [...] on file Legal Sex Male 5:40 AM HOST HOSTESS Gender Identity Not on file Sexual Orientation Not on file Obstetrics History Last Filed Vital Signs Vital Sign Reading Time Taken Comments Blood Pressure 146/84 02/07/2025 8:55 AM HOST HOSTESS rec heck Pulse 79 02/07/2025 8:53 AM HOST HOSTESS Temperature 36.6 C (97.9 F) 08/29/2024 8:52 AM CDT Respiratory Rate 18 07/08/2024 6:03 PM CDT Oxygen Saturation 98% 02/07/2025 8:53 AM HOST HOSTESS Inhaled Oxygen Concentration - - Weight 100.5 kg (221 lb 8 oz) 02/07/2025 8:53 AM HOST HOSTESS Height 177.8 cm (5' 10) 11/23/2024 10:56 AM CDT Body Mass Index 31.78 11/23/2024 10:56 AM CDT Plan of Treatment Upcoming Encounters Date Type Department Care Team (Late st Contact Info) Description 02/22/[address] [facility] [phone] 03/09/2025 10:00 AM HOST HOSTESS Ancillary Procedure [facility] [address] [place] [address] 04/04/2025 1:30 PM HOST HOSTESS Office Visit [facility] [address] [place] [address] Rufus Wiley MD [address] [place] [address] Health Maintenance Due Date Last Done Comments [...] this topic Medical Devices Implanted Type Area Lithopone Charger Device Identifier Shelf Expiration Date Model / Serial / Lot Valve Mitral 31mm Epic Plus Porcine Tissue - [id number] Implanted:Qty: 1 on 06/19/2021 by Tito Mosher MD at [facility] Cv Implants N/A: Mitral Valve [facility] [employer] [facility] 02/11/2022 [id number] / [id number] / Valve Aortic 25mm Insp[employer] Resilia Tissue - [id number] Implanted:Qty: 1 on 06/19/2021 by Tito Mosher MD at [facility] Cv Implants N/A: Mitral Valve [employer] 01/30/2025 [id number] / [id number] / Stent Uret [id number] Contour - [id number] Implanted:Qty: 1 on 05/23/2016 by Liang Burger MD at [facility] Urology 12/18/2018 [id number] / / [id number] Procedures Procedure Name Priority Date/Time Associated Diagnosis Comments HEMOGLOBIN A1C MONITORING (POCT) Routine 02/07/2025 9:50 AM HOST HOSTESS Prediabetes XR RIBS LEFT AND PA CHEST MINIMUM 3 VIEWS Routine 02/07/2025 9:45 AM HOST HOSTESS Rib pain on left side SCAN-OPERATIVE/PROCE DURE REPORT 02/03/2025 12:00 AM HOST HOSTESS from Last 3 Months Results * HEMOGLOBIN A1C MONITORING (POCT) (02/07/2025 9:50 AM HOST HOSTESS) POC HEMOGLOBIN A1C 5.8 <6.0 % OF TOTAL HGB 02/07/2025 9:59 AM HOST HOSTESS [facility] Comment: Any point of care results exhibiting inconsistency with the patient's clinical status should be repeated using a different testing method. Blood BLOOD SPECIMEN / Unknown [facility] / Unknown 02/07/2025 9:50 AM HOST HOSTESS 02/07/2025 9:50 AM HOST HOSTESS us Adei Alonzoqra DO CHEMISTRY Final Result [facility] [address] [place] [address], [place] [phone] [facility] [address] [place] [address], [place] [phone] * XR RIBS LEFT AND PA CHEST MINIMUM 3 VIEWS (02/07/2025 9:45 AM HOST HOSTESS) Anatomical Region Laterality Modality RIBS, RIBS L, CHEST Computed Rad iography 02/07/2025 11:3 2 AM HOST HOSTESS Impressions 02/07/2025 11:32 AM HOST HOSTESS No acute findings. 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
[2025-02-13 04:18] LABS: Appearance Urine Clear (Clear)
--- NOTE | 2025-02-13 04:30 | ED.GENADULT ---
HPI - General Adult General Chief complaint: Abdominal Pain Stated complaint: left side abdominal pain Time Seen by Provider: 02/13/25 04:02 Source: patient Mode of arrival: ambulatory Limitations: no limitations History of Present Illness HPI narrative: 84-year-old male presents to the emergency department for evaluation of left-sided abdominal pain. Patient was evaluated in the ED less than 48 hours ago with similar symptoms. CT was interpreted as negative, patient was told this was likely from constipation and was recommended to start taking MiraLax 3 times daily until stools were very loose. Patient has been taking the MiraLax, only a few doses though and had a small bowel movement initially in a nice bowel movement yesterday. Before bed last night, he wondered if he should continue with the MiraLax, decided instead to use a stimulant laxative and wakes in the wee hours with crampy left-sided abdominal pain that had initially improved but is now returning. No bloody stools. No vomiting. No fever. No dysuria or hematuria. Pain crampy in nature, started about 30 minutes prior to arrival. No watery stools. Patient had not consider that this could potentially be related to the laxative. Remainder of his workup is reviewed from 2 days ago and blood work is also very reassuring. Past medical history notable for hypertension. Home meds are Flomax rosuvastatin metoprolol gabapentin and Plavix, no recent changes. Current nonsmoker. ROS is notable for the abdominal symptoms as above, otherwise denies times 12 systems. Related Data Home Medications ?Medication ?Instructions ?Recorded ?Confirmed cholecalciferol (vitamin D3) 50 2,000 unit PO DAILY 11/25/21 02/11/25 mcg (2,000 unit) capsule ferrous sulfate 325 mg (65 mg 325 mg PO DAILY 11/25/21 02/11/25 iron) tablet,delayed release gabapentin 100 mg capsule 100 mg PO Q8H 11/25/21 02/11/25 metoprolol succinate 25 mg 25 mg PO DAILY 11/25/21 02/11/25 tablet,extended release 24 hr tamsulosin 0.4 mg capsule 0.4 mg PO Q24H 11/25/21 02/11/25 Held on 02/26/22. Instructions: Doctor's Order doxylamine succinate 25 mg tablet 25 mg PO QHS PRN 02/25/22 02/11/25 (Unisom (doxylamine)) multivitamin 1 tab PO DAILY 02/25/22 02/11/25 sennosides 8.6 mg capsule (senna) 8.6 mg PO BID 02/25/22 02/11/25 clopidogrel 75 mg tablet 75 mg PO DAILY 01/12/24 02/11/25 rosuvastatin 20 mg tablet 20 mg PO QPM 10/31/24 02/11/25 Previous Rx's ?Medication ?Instructions ?Recorded triamcinolone acetonide 0.1 % 1 applic topical BID PRN 10/14/23 topical ointment dermatitis #30 grams polyethylene glycol 3350 17 17 g PO BID PRN #238 grams 10/31/24 gram/dose oral powder (Miralax) Allergies Allergy/AdvReac Type Severity Reaction Status Date / Time codeine AdvReac Mild gi upset, Verified 02/11/25 08:51 nausea PFSH [facility] Medical History Cardiomyopathy ?I42.9 - Cardiomyopathy, unspecified (ICD-10) Radiculopathy of cervical spine ?M54.12 - Radiculopathy, cervical region (ICD-10) Plantar fasciitis ?M72.2 - Plantar fascial fibromatosis (ICD-10) Hypertension ?I10 - Essential (primary) hypertension (ICD-10) Kidney calculus ?N20.0 - Calculus of kidney (ICD-10) GERD (gastroesophageal reflux disease) ?K21.9 - Gastro-esophageal reflux disease without esophagitis (ICD-10) Chronic anticoagulation ?Z79.01 - senior care (current) use of anticoagulants (ICD-10) Mitral valve disorder ?I05.9 - Rheumatic mitral valve disease, unspecified (ICD-10) 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 - Other specified bacterial diseases (ICD-10) Hyperplastic colon polyp ?K63.5 - Polyp of colon (ICD-10) Depressive disorder ?F32.A - Depression, unspecified (ICD-10) Bilateral hearing loss ?H91.93 - Unspecified hearing loss, bilateral (ICD-10) Anxiety state, unspecified ?F41.1 - Generalized anxiety disorder (ICD-10) Acute bacterial endocarditis ?I33.0 - Acute and subacute infective endocarditis (ICD-10) Surgical History Hx of colonoscopy ?Z98.890 - Other specified postprocedural states (ICD-10) Aortic valve replaced ?Z95.2 - Presence of prosthetic heart valve (ICD-10) S/P ureteral stent placement ?Z96.0 - Presence of urogenital implants (ICD-10) H/O arthroscopy of shoulder ?Z98.890 - Other specified postprocedural states (ICD-10) H/O hernia repair ?Z98.890 - Other specified postprocedural states (ICD-10) ?Z87.19 - Personal history of other diseases of the digestive system (ICD-10) Social History Smoking Status: Former smoker Do you use any of these nicotine containing products: None Second hand tobacco smoke exposure: No How often do you have a drink containing alcohol: 2-4 times a month Alcohol type: wine How many standard drinks containing alcohol do you have on a typical day: 1 or 2 How often do you have six or more drinks on one occasion: Never AUDIT-C Alcohol total score: 2 Non-prescribed substance use: denies use Caffeine: No service: No Exam Const: Vital Signs, click to edit/add: Vital Signs - 24 hr 02/13/25 03:51 Temperature 96.0 F L Pulse Rate [Left P ulse Oximeter] 84 Respiratory Rate 14 Blood Pressure [Ri ght Upper Arm] 148/82 H Pulse Oximetry 95 Oxygen Delivery Me thod Room Air Documenting provider has reviewed patient's vital signs: yes Common normals: no apparent distress General appearance: cooperative HENMT: Common normals: normocephalic, moist oral mucous membranes and oropharynx normal Head and scalp: normocephalic Mouth: oral and palatal mucosa normal Eye: Common normals: conjunctivae normal General eye: normal appearance of both eyes Conjunctiva: conjunctiva(e) normal Neck & C-Spine: Common normals: full ROM and no lymphadenopathy General: normal visual inspection Resp: Common normals: normal respiratory effort, no use of accessory muscles and clear to auscultation bilaterally Effort & inspection: able to speak in complete sentences Auscultation: clear to auscultation bilaterally Cardio: Common normals: regular rate, regular rhythm, S1 normal heart sound, S2 normal heart sound and no murmurs Rate: regular rate Rhythm: regular rhythm Heart sounds: S1 normal and S2 normal GI: Common normals: Normal to inspection, nondistended, normoactive bowel sounds present, soft to palpation, no hepatosplenomegaly and no masses Palpation: soft and no hepatosplenomegaly Other: Mildly diffusely tender to the left mid abdomen, not easily reproducible on exam. Certainly no rebound tenderness or guarding. Extremity: Common normals: normal to inspection and normal capillary refill Psych: Common normals: speech normal Appearance: grossly normal Attitude: calm and engaged Activity/motor behavior: appropriate eye contact Speech: normal speech Insight: fair Judgement: fair Skin: Common normals: no rashes or lesions noted General skin exam: no rashes or lesions noted Course Course ED Course: 84-year-old male with left-sided abdominal pain, completely benign workup less than 48 hours ago. Suspected etiology was some constipation. Patient was getting some relief with the prescribed regimen of MiraLax, elected to take a stimulant laxative and now has crampy left-sided abdominal pain. Counseled patient that the most likely etiology of his pain is taking the stimulant laxative. There is certainly no red flags on exam that would suggest obstruction, colitis, pancreatitis or significant infection. CT ruled out mass, diverticulitis or other major etiology. Prior blood work, note and CT are reviewed. Counseled patient that conservative management would be reasonable, he elects for blood work. Will repeat typical intra-abdominal labs. Will consider imaging if labs have changed markedly. Reevaluation(s) Time of Reevaluation #1: 05:17 Reevaluation #1: Patient still having some mild intermittent left-sided abdominal pain. Vitals remained stable. He is counseled on his normal labs. I do think that the pain that he is having is related to use of the stimulant laxative that he took. I have discouraged this again in the future. It is okay for him to use [id number] Tylenol to help with this cramping but ultimately, there is no way to undo this and the medication will simply have to work its way out or wear off. We discussed alarm symptoms that would warrant ED re-evaluation. Continue drinking plenty of fluids. Primary care follow-up if symptoms persist for more than 72 hours from now. Vital Signs Vital signs: Initial Vital Signs Temperature 96.0 F L 02/13/25 03:51 Temperature Source Temporal Artery Scan 02/13/25 03:51 Pulse Rate 84 02/13/25 03:51 Pulse Rhythm Regular 02/13/25 03:51 Respiratory Rate 14 02/13/25 03:51 Blood Pressure 148/82 H 02/13/25 03:51 Blood Pressure Mean 104 02/13/25 03:51 Blood Pressure Position Sitting 02/13/25 03:51 Pulse Oximetry 95 02/13/25 03:51 Oxygen Delivery Method Room Air 02/13/25 03:51 Vital Signs Temperature 96.0 F L 02/13/25 03:51 Pulse Rate 84 02/13/25 03:51 Respiratory Rate 14 02/13/25 03:51 Blood Pressure 148/82 H 02/13/25 03:51 Pulse Oximetry 95 02/13/25 03:51 Oxygen Delivery Method Room Air 02/13/25 03:51 Temperature 96.0 F L 02/13/25 03:51 Pulse Rate 84 02/13/25 03:51 Respiratory Rate 14 02/13/25 03:51 Blood Pressure 148/82 H 02/13/25 03:51 Pulse Oximetry 95 02/13/25 03:51 Oxygen Delivery Method Room Air 02/13/25 03:51 Medical Decision Making Lab Data Lab results reviewed: Yes I reviewed the patient's lab results Lab results narrative: No significant leukocytosis, inflammatory markers are negative. Liver enzymes are reassuring as is urinalysis. Electrolytes also normal. Normal labs Labs: Lab Results 02/13/25 02/13/25 Range/Units 04:05 04:42 WBC 5.76 (4.50-11.00) K/uL RBC 5.35 (4.30-5.90) m/uL Hgb 16.3 (13.5-17.5) gm/dL Hct 47.6 (37.0-53.0) % MCV 89 (80-100) fL MCH 31 (26-34) pg MCHC 34 (32-36) gm/dL RDW Coeff of Stephen 12.6 (11.5-15.5) % Plt Count 153 (140-440) K/uL Neut % (Auto) 67.5 (42.0-72.0) % Lymph % (Auto) 23.1 (20-44) % [place] % (Auto) 8.5 (0.0-11.0) % Eos % (Auto) 0.0 (0.0-7.0) % Baso % (Auto) 0.7 (0.0-3.0) % Neut # (Auto) 3.89 (1.7-7.0) K/uL Lymph # (Auto) 1.33 (0.90-2.90) K/uL [place] # (Auto) 0.50 (0.00-0.90) K/UL Eos # (Auto) 0.00 (0.00-0.50) K/uL Baso # (Auto) 0.04 (0.00-0.30) K/uL Abs Immat Gran (auto) 0.01 (0.00-0.30) K/uL Imm/Tot Granulo (auto) 0.2 % Sodium 136 (135-149) mmol/L Potassium 4.1 (3.6-5.1) mmol/L Chloride 105 (96-114) mmol/L Carbon Dioxide 25 (20-32) mmol/L Anion Gap 6 L (7-15) mEq/L BUN 16 (7-30) mg/dL Creatinine 0.8 (0.5-1.5) mg/dL Estimated Creat Clear 58.57 Estimated GFR 87 ml/min Glucose 104 (60-115) mg/dL Lactate 0.8 (0.5-1.9) mmol/L Calcium 10.2 (8.4-10.6) mg/dL Total Bilirubin 1.6 H (0.1-1.5) mg/dL AST 35 (12-35) U/L ALT 21 (4-50) U/L Alkaline Phosphatase 60 (40-150) U/L C-Reactive Protein < 0.5 L (0.5-1.0) mg/dL Total Protein 7.4 (6.0-8.3) g/dL Albumin 4.5 (3.3-5.0) g/dL Lipase 97 (23-300) U/L Urine Color Yellow (Yellow) Urine Appearance Clear (Clear) Urine pH 6.5 (5.0-8.5) Ur Specific [place] 1.010 (1.000-1.030) Urine Protein Negative (Negative) Urine Glucose (UA) Negative (Negative) Urine Ketones Negative (Negative) Urine Blood Negative (Negative) Urine Nitrite Negative (Negative) Urine Bilirubin Negative (Negative) Urine Urobilinogen 0.2 (0.2-1.0) Ur Leukocyte Esterase Negative (Negative) Discharge Plan Discharge Clinical Impression: Constipation, Medication side effects Patient Disposition: Home, Self-Care Condition: Stable Instructions: Constipation (DC) Additional Instructions: As we discussed, your repeat blood work is normal. I do not recommend that we repeat the CT scan. I do think that this crampy abdominal pain that your having on the left side of your abdomen today as a result of taking that stimulant laxative. Those will cause a significant amount of cramping for most people, especially since you had been taking the MiraLax. There really isn't any way to undo this, it just has to work its way out. If you have severely bloody stools, persistent vomiting, high fevers or severe weakness, you should be re-evaluated. Typically we would encourage you to use Tylenol for this type of pain and to wait and see how things evolve prior to coming into the emergency room if your symptoms are not severe. Activity Level: No Restrictions Discharge Diet: Regular Prescriptions: No Action triamcinolone acetonide 0.1 % ointment 1 applic topical BID PRN (Reason: dermatitis ) Qty: 30 0RF Unisom (doxylamine) 25 mg tablet 25 mg PO QHS PRN multivitamin Tablet 1 tab PO DAILY senna 8.6 mg capsule 8.6 mg PO BID tamsulosin 0.4 mg capsule 0.4 mg PO Q24H gabapentin 100 mg capsule 100 mg PO Q8H metoprolol succinate 25 mg tablet extended release 24 hr 25 mg PO DAILY cholecalciferol (vitamin D3) 50 mcg (2,000 unit) capsule 2,000 unit PO DAILY ferrous sulfate 325 mg (65 mg iron) tablet,delayed release (DR/EC) 325 mg PO DAILY clopidogrel 75 mg tablet 75 mg PO DAILY rosuvastatin 20 mg tablet 20 mg PO QPM polyethylene glycol 3350 [Miralax] 17 gram/dose powder 17 g PO BID PRNQty: 238 0RF Follow Up/Referrals: QUENTIN PATEL DO [Primary Care Provider, Family Practice] Stand Alone Forms: MyHealth Info Instructions
[2025-02-13 04:46] LABS: Lactate* 0.8 mmol/L (0.5-1.9)
[2025-02-13 04:48] LABS: Hematocrit* 47.6 % (37.0-53.0); Hemoglobin* 16.3 gm/dL (13.5-17.5); Immature Granulocytes Abs Auto 0.01 K/uL (0.00-0.30); Immature Granulocytes Pct Auto 0.2 %; Lymphocytes Absolute Auto 1.33 K/uL (0.90-2.90); Mean Corpuscular HGB Conc 34 gm/dL (32-36); Mean Corpuscular Hemoglobin 31 pg (26-34); Mean Corpuscular Volume 89 fL (80-100); RDW Coefficient of Variation % 12.6 % (11.5-15.5); Red Blood Count* 5.35 m/uL (4.30-5.90); White Blood Count* 5.76 K/uL (4.50-11.00)
[2025-02-13 04:54] LABS: Slide Review Reflex No
[2025-02-13 05:01] LABS: Albumin* 4.5 g/dL (3.3-5.0); Chloride* 105 mmol/L (96-114); Sodium* 136 mmol/L (135-149)
[2025-02-13 05:02] LABS: Potassium* 4.1 mmol/L (3.6-5.1)
[2025-02-13 05:03] LABS: Blood Urea Nitrogen* 16 mg/dL (7-30); Creatinine* 0.8 mg/dL (0.5-1.5); Est. Creatinine Clearance* 58.57; Estimated Glomerular Filt Rate 87 ml/min
[2025-02-13 05:04] LABS: Alanine Aminotransferase* 21 U/L (4-50); Alkaline Phosphatase* 60 U/L (40-150); Anion Gap 6 mEq/L (7-15); Aspartate Amino Transferase* 35 U/L (12-35); Bilirubin Total* 1.6 mg/dL (0.1-1.5); Calcium* 10.2 mg/dL (8.4-10.6); Carbon Dioxide* 25 mmol/L (20-32); Glucose* 104 mg/dL (60-115); Total Protein* 7.4 g/dL (6.0-8.3)
== END 2025-02-13 05:26 | disposition home or self-care (01) ==
PROVIDERS: Emergency Provider Family Medicine; PCP Student in an Organized Health Care Education/Training Program
DX: K59.00 Constipation, unspecified (principal); T47.4X5A Adverse effect of other laxatives, initial encounter
CPT/HCPCS: 36415; 80053; 81003; 83605; 83690; 85025; 86140; 99283; 99284